=== PATIENT | female | born 1935 | race Caucasian/White ===

== ENCOUNTER → 2016-10-30 | Outpatient (CLI) | payer MEDICARE ==
[~2016-10-30] MED LIST: ACTO45TA OR; ASPI1TAB5 PO; AUGM500T34 PO; BISA5TA OR; CALC600T7 PO; CARV6.25 PO; ENAL20TA OR; FERR325T OR; FLEX10TA2 PO; FLEXER; FLEXERIL PO; FURO20TA2 PO; GLIP5TAB2 PO; GLUC1000 OR; LEVOXYL25 MCG OR; MILKSUS OR; MIRALEX OR; NORV5TAB OR; PAIN325T OR; PRAV40TA PO; SIMV40TA2 OR; TIZA4CAP PO; TRAM50TA2 OR; VIT D 4000; VITA400C OR; VITA500C24 PO; VITAMIN; [UNRECOGNIZED DRUG - OTHER]; [UNRECOGNIZED DRUG - OTHER] OR; [UNRECOGNIZED DRUG - OTHER] PO; fishoil; furosemide PO; multivit PO
--- NOTE | 2016-10-30 18:07 | REP ---
CT PELVIS WITHOUT CONTRAST: REASON FOR EXAM: Left hip pain, possible stress fracture. Bony pelvic CT was obtained without intravenous contrast was windowed in both bone and soft-tissue settings. COMPARISON: Comparison CT of 05/23/2010, a soft-tissue abdominal and pelvic CT was windowed using bone window settings and views for comparison. Since the last examination the patient has undergone a complete right hip prosthetic device placement. The femoral and acetabular component of the prosthesis are within normal limits. There is no acute fracture or dislocation. There is no CT evidence of abnormal periprosthetic lucency. Chronic degenerative changes are seen involving the left hip with asymmetric hip joint space narrowing, marginal osteophytosis, and subchondral cyst formation particularly affecting the acetabulum. Chronic changes are seen involving the pubic symphysis and bilateral sacroiliac joint degenerative changes are present. Discogenic degenerative changes and degenerative changes involving the facet joints of the lumbar spine are noted. There is no evidence of an acute fracture or dislocation. Soft tissue setting throughout the examination shows no evidence of a mass. There was no evidence of free fluid or free air in the pelvis. IMPRESSION: Chronic changes as described above. There is no evidence of acute disease. Signed by Matt Kumar DO 10/31/2016 12:00 P
== END ==
LOC: M RAD 15:38
PROVIDERS: ATTEND Orthopaedic Surgery
DX: M16.12 Unilateral primary osteoarthritis, left hip (principal)

== ENCOUNTER → 2018-07-30 | Outpatient (CLI) | payer MEDICARE ==
[2018-07-30 12:20] LABS: HEMATOCRIT 38.2 % (36.0-47.0); HEMOGLOBIN 12.9 g/dl (12.0-15.5); MEAN CORPUSCULAR HEMOGLOBIN 31.2 pg (27.0-33.0); MEAN CORPUSCULAR HGB CONC 33.8 g/dl (32.0-36.5); MEAN CORPUSCULAR VOLUME 92.5 fl (80.0-96.0); PLATELET COUNT, AUTOMATED 223 10^3/uL (150-450); RED BLOOD COUNT 4.13 10^6/uL (4.00-5.40); RED CELL DISTRIBUTION WIDTH 12.1 % (11.5-14.5); WHITE BLOOD COUNT 8.2 10^3/uL (4.0-10.0)
[2018-07-30 12:29] LABS: INR 0.99; PROTHROMBIN TIME 13.2 SECONDS (12.1-14.4)
[2018-07-30 12:49] LABS: ERYTHROCYTE SEDIMENTATION RATE 63 mm/hr (0-30)
[2018-07-30 12:54] LABS: ALBUMIN 3.2 GM/DL (3.2-5.2); ALBUMIN/GLOBULIN RATIO 0.82 (1.00-1.93); ALKALINE PHOSPHATASE 105 U/L (45-117); ALT/SGPT 29 U/L (12-78); ANION GAP 9 MEQ/L (8-16); AST/SGOT 27 U/L (7-37); BILIRUBIN,TOTAL 0.5 MG/DL (0.2-1.0); BLOOD UREA NITROGEN 21 MG/DL (7-18); CALCIUM LEVEL 9.4 MG/DL (8.8-10.2); CARBON DIOXIDE LEVEL 27 MEQ/L (21-32); CHLORIDE LEVEL 101 MEQ/L (98-107); CREATININE FOR GFR 1.49 MG/DL (0.55-1.30); GLOMERULAR FILTRATION RATE 35.8 (>32); GLUCOSE, FASTING 132 MG/DL (70-100); POTASSIUM SERUM 4.6 MEQ/L (3.5-5.1); SODIUM LEVEL 137 MEQ/L (136-145); TOTAL PROTEIN 7.1 GM/DL (6.4-8.2)
== END ==
LOC: M LAB 11:06
DX: Z01.818 Encounter for other preprocedural examination (principal); M16.12 Unilateral primary osteoarthritis, left hip; Z88.5 Allergy status to narcotic agent; Z88.0 Allergy status to penicillin; I45.10 Unspecified right bundle-branch block; R94.31 Abnormal electrocardiogram [ECG] [EKG]
CPT/HCPCS: 71046

== ENCOUNTER 2018-08-21 09:40 | Inpatient (IN) | payer MEDICARE ==
[2018-08-21 10:39] LABS: GLUCOSE, FASTING 161 MG/DL (70-100)
[2018-08-21] MEDS: ACETAMINOPHEN 500 MG TAB PO ×2 (10:50→22:57)
[2018-08-21] MEDS: LR 1,000 ML IV ×3 (10:50→16:30)
[2018-08-21] MEDS ORDERED: MIDAZOLAM INJ 2 MG/2 ML VIAL (J2250) As Ordered (13:00)
[2018-08-21] MEDS ORDERED: fentaNYL 100 MCG/2 ML INJECTION (J3010) As Ordered (13:00)
[2018-08-21] MEDS: VANCOMYCIN HCL 1,000 MG, VIAL MATE ADAPTER 1 EACH in D5W 250 ML IV (13:40)
[2018-08-21] MEDS: CLINDAMYCIN INJ 900MG/6ML VIAL As Ordered (14:33)
[2018-08-21] MEDS ORDERED: PROPOFOL 200 MG/20 ML VIAL As Ordered ×3 (15:16→15:17)
[2018-08-21] MEDS ORDERED: LIDOCAINE 2% INJ 100 MG/5 ML SDV (FOR ANES.) As Ordered (15:16)
[2018-08-21] MEDS: EPINEPHrine INJ 1 MG/ML 1ML AMP As Ordered (15:34)
[2018-08-21] MEDS ORDERED: PHENYLephrine HCL 500 MCG/5 ML (100MCG/ML) SYRINGE (J2370) As Ordered (15:42)
[2018-08-21] MEDS ORDERED: ePHEDrine SULFATE 25 MG/5 ML(5MG/ML) SYRINGE As Ordered (15:42)
[2018-08-21] MEDS ORDERED: ONDANSETRON 4MG/2ML VIAL (J2405) As Ordered (16:19)
[2018-08-21] MEDS ORDERED: MORPHINE 1MG/ML IN 0.9% NACL 100ML IV BAG As Ordered (16:21)
[2018-08-21] MEDS: MORPHINE 1MG/ML IN 0.9% NACL 100ML IV BAG IV (16:30)
[2018-08-21] MEDS ORDERED: MORPHINE 10 MG/ML 1ML VIAL (J2270) IV (16:30)
[2018-08-21] MEDS ORDERED: NALOXONE INJ 0.4 MG/1 ML VIAL (J2310) IV (16:30)
[2018-08-21] MEDS ORDERED: EPIDURAL/PCA KEYS XX (16:30)
[2018-08-21] MEDS ORDERED: diphenhydrAMINE INJ 50MG/ML VIAL (J1200) IV (16:30)
[2018-08-21] MEDS ORDERED: ACETAMINOPHEN TAB 650MG DOSE (2X325MG) PO (16:30)
[2018-08-21] MEDS ORDERED: NALBUPHINE HCL 10 MG/ML AMP (J2300) IV (16:30)
[2018-08-21] MEDS ORDERED: fentaNYL 100 MCG/2 ML INJECTION (J3010) IV (16:30)
[2018-08-21] MEDS ORDERED: ONDANSETRON 4MG/2ML VIAL (J2405) IV ×2 (16:30)
[2018-08-21] MEDS ORDERED: FLEET ENEMA PR (16:30)
[2018-08-21 17:44] LABS: HEMOGLOBIN 10.7 g/dl (12.0-15.5); MEAN CORPUSCULAR HEMOGLOBIN 31.2 pg (27.0-33.0); MEAN CORPUSCULAR HGB CONC 32.4 g/dl (32.0-36.5); MEAN CORPUSCULAR VOLUME 96.2 fl (80.0-96.0); PLATELET COUNT, AUTOMATED 155 10^3/uL (150-450); RED BLOOD COUNT 3.43 10^6/uL (4.00-5.40); RED CELL DISTRIBUTION WIDTH 12.2 % (11.5-14.5); WHITE BLOOD COUNT 7.7 10^3/uL (4.0-10.0)
[2018-08-21 18:06] LABS: ANION GAP 6 MEQ/L (8-16); BLOOD UREA NITROGEN 26 MG/DL (7-18); CALCIUM LEVEL 8.3 MG/DL (8.8-10.2); CARBON DIOXIDE LEVEL 28 MEQ/L (21-32); CHLORIDE LEVEL 106 MEQ/L (98-107); CREATININE FOR GFR 1.29 MG/DL (0.55-1.30); GLOMERULAR FILTRATION RATE 42.2 (>32); GLUCOSE, FASTING 110 MG/DL (70-100); POTASSIUM SERUM 4.2 MEQ/L (3.5-5.1); SODIUM LEVEL 140 MEQ/L (136-145)
[2018-08-21] MEDS ORDERED: traMADol 50 MG TAB PO (21:00)
[2018-08-21] MEDS: ONDANSETRON 4MG/2ML VIAL (J2405) IV (21:20)
[2018-08-21] MEDS: CARVedilol 12.5 MG TAB PO (23:21)
[2018-08-21] MEDS: OMEGA-3 1000MG CAPSULE PO (23:21)
[2018-08-22] MEDS: VANCOMYCIN HCL 1,000 MG, VIAL MATE ADAPTER 1 EACH in D5W 250 ML IV ×2 (02:27→14:07)
[2018-08-22] MEDS: ACETAMINOPHEN 500 MG TAB PO ×3 (05:48→21:39)
[2018-08-22 05:49] LABS: HEMATOCRIT 29.6 % (36.0-47.0); HEMOGLOBIN 9.4 g/dl (12.0-15.5); MEAN CORPUSCULAR HEMOGLOBIN 30.9 pg (27.0-33.0); MEAN CORPUSCULAR HGB CONC 31.8 g/dl (32.0-36.5); MEAN CORPUSCULAR VOLUME 97.4 fl (80.0-96.0); PLATELET COUNT, AUTOMATED 161 10^3/uL (150-450); RED BLOOD COUNT 3.04 10^6/uL (4.00-5.40); RED CELL DISTRIBUTION WIDTH 12.4 % (11.5-14.5); WHITE BLOOD COUNT 7.3 10^3/uL (4.0-10.0)
[2018-08-22] MEDS: traMADol 50 MG TAB PO (05:49)
[2018-08-22] MEDS: LEVOTHYROXINE 75MCG TABLET (0.075MG) PO (05:49)
[2018-08-22 06:19] LABS: BEDSIDE GLUCOSE 227 MG/DL (83-110)
[2018-08-22 06:29] LABS: ANION GAP 5 MEQ/L (8-16); BLOOD UREA NITROGEN 30 MG/DL (7-18); CARBON DIOXIDE LEVEL 29 MEQ/L (21-32); CHLORIDE LEVEL 102 MEQ/L (98-107); GLUCOSE, FASTING 231 MG/DL (70-100); POTASSIUM SERUM 5.4 MEQ/L (3.5-5.1); SODIUM LEVEL 136 MEQ/L (136-145)
[2018-08-22] MEDS: MOM 30ML SUSPENSION UDC PO (08:30)
[2018-08-22] MEDS: PRAVASTATIN 20 MG TAB PO (08:30)
[2018-08-22] MEDS: SENOKOT S TAB PO ×2 (08:30→21:39)
[2018-08-22] MEDS: MIRALAX *UNIT DOSE* 17GM PACKET PO (08:30)
[2018-08-22] MEDS: CARVedilol 12.5 MG TAB PO ×2 (08:31→21:40)
[2018-08-22] MEDS: NS 1,000 ML IV ×2 (08:39→20:13)
[2018-08-22] MEDS: OMEGA-3 1000MG CAPSULE PO ×2 (08:43→21:00)
[2018-08-22] MEDS: FERROUS SULFATE 325MG TAB PO (08:43)
[2018-08-22] MEDS: ASCORBIC ACID 500 MG TAB PO (08:43)
[2018-08-22] MEDS: VITAMIN D 1,000 INTERNATIONAL UNITS TABLET PO (08:43)
[2018-08-22] MEDS ORDERED: RIVAROXABAN 10 MG TAB (XARELTO) PO (09:00)
[2018-08-22] MEDS ORDERED: FUROSEMIDE 40 MG TAB PO (09:00)
[2018-08-22] MEDS ORDERED: DEXTROSE 50% 50 ML SYRINGE IV (09:15)
[2018-08-22] MEDS ORDERED: GLUCAGON FOR INJ 1 MG VIAL (J1610) SC (09:15)
[2018-08-22] MEDS ORDERED: GLUCOSE 4 GM CHEW TABLET PO (09:15)
[2018-08-22 11:39] LABS: BEDSIDE GLUCOSE 306 MG/DL (83-110)
[2018-08-22] MEDS: HumaLOG INSULIN (NovoLOG) PER UNIT SC ×3 (13:06→21:41)
[2018-08-22 16:48] LABS: BEDSIDE GLUCOSE 316 MG/DL (83-110)
[2018-08-22 20:08] LABS: BEDSIDE GLUCOSE 275 MG/DL (83-110)
[2018-08-22] MEDS: ONDANSETRON 4MG/2ML VIAL (J2405) IV (20:13)
[2018-08-23] MEDS: traMADol 50 MG TAB PO ×2 (01:06→07:43)
[2018-08-23] MEDS: ONDANSETRON 4MG/2ML VIAL (J2405) IV (01:06)
[2018-08-23 06:00] LABS: HEMATOCRIT 24.3 % (36.0-47.0); HEMOGLOBIN 7.9 g/dl (12.0-15.5); MEAN CORPUSCULAR HEMOGLOBIN 31.1 pg (27.0-33.0); MEAN CORPUSCULAR HGB CONC 32.5 g/dl (32.0-36.5); MEAN CORPUSCULAR VOLUME 95.7 fl (80.0-96.0); PLATELET COUNT, AUTOMATED 124 10^3/uL (150-450); RED BLOOD COUNT 2.54 10^6/uL (4.00-5.40); RED CELL DISTRIBUTION WIDTH 12.5 % (11.5-14.5); WHITE BLOOD COUNT 7.4 10^3/uL (4.0-10.0)
[2018-08-23] MEDS: LEVOTHYROXINE 75MCG TABLET (0.075MG) PO (06:05)
[2018-08-23] MEDS: ACETAMINOPHEN 500 MG TAB PO ×3 (06:05→21:50)
[2018-08-23 06:24] LABS: ANION GAP 7 MEQ/L (8-16); BLOOD UREA NITROGEN 44 MG/DL (7-18); CALCIUM LEVEL 7.2 MG/DL (8.8-10.2); CARBON DIOXIDE LEVEL 26 MEQ/L (21-32); CHLORIDE LEVEL 99 MEQ/L (98-107); CREATININE FOR GFR 2.61 MG/DL (0.55-1.30); GLOMERULAR FILTRATION RATE 18.7 (>32); GLUCOSE, FASTING 353 MG/DL (70-100); POTASSIUM SERUM 4.8 MEQ/L (3.5-5.1); SODIUM LEVEL 132 MEQ/L (136-145)
[2018-08-23 08:08] LABS: NT-PRO BNP 807 PG/ML (<450)
[2018-08-23 08:49] LABS: BEDSIDE GLUCOSE 351 MG/DL (83-110)
[2018-08-23] MEDS: HumaLOG INSULIN (NovoLOG) PER UNIT SC ×4 (08:53→20:33)
[2018-08-23] MEDS: MOM 30ML SUSPENSION UDC PO (08:53)
[2018-08-23] MEDS: NS 1,000 ML IV (08:53)
[2018-08-23] MEDS: MIRALAX *UNIT DOSE* 17GM PACKET PO (08:53)
[2018-08-23] MEDS: ASCORBIC ACID 500 MG TAB PO (08:54)
[2018-08-23] MEDS: PRAVASTATIN 20 MG TAB PO (08:54)
[2018-08-23] MEDS: FERROUS SULFATE 325MG TAB PO (08:54)
[2018-08-23] MEDS: CARVedilol 12.5 MG TAB PO ×2 (08:54→20:48)
[2018-08-23] MEDS: OMEGA-3 1000MG CAPSULE PO ×2 (08:54→20:48)
[2018-08-23] MEDS: VITAMIN D 1,000 INTERNATIONAL UNITS TABLET PO (08:54)
[2018-08-23] MEDS: SENOKOT S TAB PO ×2 (08:54→20:48)
[2018-08-23 11:40] LABS: BEDSIDE GLUCOSE 387 MG/DL (83-110)
[2018-08-23 14:30] LABS: IMMEDIATE SPIN CROSSMATCH 1 2
[2018-08-23 14:38] LABS: OSMOLALITY URINE 592 MOSM/KG (500-800)
[2018-08-23 14:38] LABS: APPEARANCE, URINE CLEAR (CLEAR); BACTERIA, URINE AUTO NEGATIVE (NEGATIVE); BILIRUBIN, URINE AUTO NEGATIVE (NEGATIVE); BLOOD, URINE BLOOD NEGATIVE (NEGATIVE); COLOR, URINE YELLOW (YELLOW); GLUCOSE, URINE (UA) AUTO 2+ mg/dL (NEGATIVE); KETONE, URINE AUTO NEGATIVE (NEGATIVE); LEUKOCYTE ESTERASE, URINE AUTO 2+ (NEGATIVE); NITRITE, URINE AUTO NEGATIVE (NEGATIVE); PROTEIN, URINE AUTO NEGATIVE (NEGATIVE); RBC, URINE AUTO 3 /HPF (0-3); SPECIFIC GRAVITY URINE AUTO 1.025 (1.002-1.035); SQUAMOUS EPITHELIAL CELL UR AU 0 /HPF (0-6); UROBILINOGEN, URINE AUTO 0.2 mg/dL (0.0-2.0); WBC, URINE AUTO 16 /HPF (0-3)
[2018-08-23 14:53] LABS: SODIUM,RANDOM URINE < 10 MEQ/L
[2018-08-23 16:46] LABS: BEDSIDE GLUCOSE 349 MG/DL (83-110)
[2018-08-23 19:27] LABS: HEMATOCRIT 31.6 % (36.0-47.0); MEAN CORPUSCULAR HEMOGLOBIN 31.1 pg (27.0-33.0); MEAN CORPUSCULAR HGB CONC 33.2 g/dl (32.0-36.5); MEAN CORPUSCULAR VOLUME 93.5 fl (80.0-96.0); PLATELET COUNT, AUTOMATED 128 10^3/uL (150-450); RED BLOOD COUNT 3.38 10^6/uL (4.00-5.40); RED CELL DISTRIBUTION WIDTH 13.9 % (11.5-14.5); WHITE BLOOD COUNT 10.3 10^3/uL (4.0-10.0)
[2018-08-23 19:28] LABS: HEMOGLOBIN 10.5 g/dl (12.0-15.5)
[2018-08-23 19:58] LABS: BEDSIDE GLUCOSE 342 MG/DL (83-110)
[2018-08-23] MEDS: LEVEMIR (INSULIN DETEMIR) 1 UNITS/0.01ML SC (20:33)
[2018-08-23] MEDS ORDERED: ACETAMINOPHEN 500 MG TAB As Ordered (21:48)
[2018-08-24] MEDS: LEVOTHYROXINE 75MCG TABLET (0.075MG) PO (05:04)
[2018-08-24] MEDS: ACETAMINOPHEN 500 MG TAB PO ×3 (05:05→20:56)
[2018-08-24 06:01] LABS: HEMATOCRIT 30.6 % (36.0-47.0); MEAN CORPUSCULAR HEMOGLOBIN 30.7 pg (27.0-33.0); MEAN CORPUSCULAR HGB CONC 32.7 g/dl (32.0-36.5); MEAN CORPUSCULAR VOLUME 93.9 fl (80.0-96.0); PLATELET COUNT, AUTOMATED 130 10^3/uL (150-450); RED BLOOD COUNT 3.26 10^6/uL (4.00-5.40); RED CELL DISTRIBUTION WIDTH 13.9 % (11.5-14.5); WHITE BLOOD COUNT 9.1 10^3/uL (4.0-10.0)
[2018-08-24 06:41] LABS: ANION GAP 7 MEQ/L (8-16); BLOOD UREA NITROGEN 46 MG/DL (7-18); CALCIUM LEVEL 7.7 MG/DL (8.8-10.2); CARBON DIOXIDE LEVEL 24 MEQ/L (21-32); CHLORIDE LEVEL 100 MEQ/L (98-107); CREATININE FOR GFR 2.19 MG/DL (0.55-1.30); GLOMERULAR FILTRATION RATE 22.9 (>32); GLUCOSE, FASTING 232 MG/DL (70-100); POTASSIUM SERUM 4.6 MEQ/L (3.5-5.1); SODIUM LEVEL 131 MEQ/L (136-145)
[2018-08-24] MEDS: MOM 30ML SUSPENSION UDC PO (08:23)
[2018-08-24] MEDS: PRAVASTATIN 20 MG TAB PO (08:23)
[2018-08-24] MEDS: MIRALAX *UNIT DOSE* 17GM PACKET PO (08:23)
[2018-08-24] MEDS: SENOKOT S TAB PO ×2 (08:24→20:55)
[2018-08-24] MEDS: ASCORBIC ACID 500 MG TAB PO (08:24)
[2018-08-24] MEDS: OMEGA-3 1000MG CAPSULE PO ×2 (08:24→20:55)
[2018-08-24] MEDS: CARVedilol 12.5 MG TAB PO ×2 (08:26→20:56)
[2018-08-24] MEDS: FERROUS SULFATE 325MG TAB PO (08:26)
[2018-08-24] MEDS: HumaLOG INSULIN (NovoLOG) PER UNIT SC ×4 (08:27→20:56)
[2018-08-24] MEDS: VITAMIN D 1,000 INTERNATIONAL UNITS TABLET PO (08:27)
[2018-08-24] MEDS: NS 1,000 ML IV ×2 (08:27→17:59)
[2018-08-24] MEDS: LEVEMIR (INSULIN DETEMIR) 1 UNITS/0.01ML SC (08:28)
[2018-08-24 11:32] LABS: BEDSIDE GLUCOSE 257 MG/DL (83-110)
[2018-08-24 12:34] LABS: ANION GAP 8 MEQ/L (8-16); BLOOD UREA NITROGEN 47 MG/DL (7-18); CALCIUM LEVEL 8.1 MG/DL (8.8-10.2); CARBON DIOXIDE LEVEL 25 MEQ/L (21-32); CHLORIDE LEVEL 100 MEQ/L (98-107); CREATININE FOR GFR 2.08 MG/DL (0.55-1.30); GLOMERULAR FILTRATION RATE 24.3 (>32); GLUCOSE, FASTING 248 MG/DL (70-100); POTASSIUM SERUM 4.7 MEQ/L (3.5-5.1); SODIUM LEVEL 133 MEQ/L (136-145)
[2018-08-24] MEDS: traMADol 50 MG TAB PO ×2 (13:26→19:27)
[2018-08-24 17:06] LABS: BEDSIDE GLUCOSE 133 MG/DL (83-110)
[2018-08-24 20:08] LABS: BEDSIDE GLUCOSE 180 MG/DL (83-110)
[2018-08-25] MEDS: ACETAMINOPHEN 500 MG TAB PO (05:06)
[2018-08-25] MEDS: traMADol 50 MG TAB PO (05:07)
[2018-08-25] MEDS: LEVOTHYROXINE 75MCG TABLET (0.075MG) PO (05:07)
[2018-08-25 06:13] LABS: BEDSIDE GLUCOSE 105 MG/DL (83-110)
[2018-08-25 08:07] LABS: HEMATOCRIT 29.4 % (36.0-47.0); HEMOGLOBIN 9.7 g/dl (12.0-15.5); MEAN CORPUSCULAR HEMOGLOBIN 31.5 pg (27.0-33.0); MEAN CORPUSCULAR VOLUME 95.5 fl (80.0-96.0); PLATELET COUNT, AUTOMATED 141 10^3/uL (150-450); RED BLOOD COUNT 3.08 10^6/uL (4.00-5.40); RED CELL DISTRIBUTION WIDTH 13.8 % (11.5-14.5)
[2018-08-25] MEDS: HumaLOG INSULIN (NovoLOG) PER UNIT SC ×2 (08:13→12:38)
[2018-08-25] MEDS: LEVEMIR (INSULIN DETEMIR) 1 UNITS/0.01ML SC (08:19)
[2018-08-25] MEDS: CARVedilol 12.5 MG TAB PO (08:19)
[2018-08-25] MEDS: MIRALAX *UNIT DOSE* 17GM PACKET PO (08:27)
[2018-08-25] MEDS: FERROUS SULFATE 325MG TAB PO (08:27)
[2018-08-25] MEDS: MOM 30ML SUSPENSION UDC PO (08:27)
[2018-08-25] MEDS: OMEGA-3 1000MG CAPSULE PO (08:27)
[2018-08-25] MEDS: ASCORBIC ACID 500 MG TAB PO (08:28)
[2018-08-25] MEDS: VITAMIN D 1,000 INTERNATIONAL UNITS TABLET PO (08:28)
[2018-08-25] MEDS: SENOKOT S TAB PO (08:28)
[2018-08-25] MEDS: PRAVASTATIN 20 MG TAB PO (08:28)
[2018-08-25 08:34] LABS: ANION GAP 6 MEQ/L (8-16); BLOOD UREA NITROGEN 38 MG/DL (7-18); CALCIUM LEVEL 7.5 MG/DL (8.8-10.2); CARBON DIOXIDE LEVEL 25 MEQ/L (21-32); CHLORIDE LEVEL 106 MEQ/L (98-107); CREATININE FOR GFR 1.59 MG/DL (0.55-1.30); GLOMERULAR FILTRATION RATE 33.2 (>32); GLUCOSE, FASTING 115 MG/DL (70-100); POTASSIUM SERUM 4.7 MEQ/L (3.5-5.1); SODIUM LEVEL 137 MEQ/L (136-145)
[2018-08-25 11:28] LABS: BEDSIDE GLUCOSE 225 MG/DL (83-110)
[2018-08-25] MEDS: HEPARIN SOD (PORCINE) 5000 UNITS/ML VIAL SQ (12:56)
== END 2018-08-25 13:30 | disposition home health service (06) | DRG 470 ==
LOC: M OR 09:40 → M MS5PR 17:35
PROVIDERS: Orthopaedic Surgery
PROC: 0SRB029 Replacement of Left Hip Joint with Metal on Polyethylene Synthetic Substitute, Cemented, Open Approach (ICD-10-PCS; principal; 2018-08-21 12:15)
PROC: 30233N1 Transfusion of Nonautologous Red Blood Cells into Peripheral Vein, Percutaneous Approach (ICD-10-PCS; 2018-08-21 13:39)
DX: M16.12 Unilateral primary osteoarthritis, left hip (principal); N17.9 Acute kidney failure, unspecified; N25.81 Secondary hyperparathyroidism of renal origin; N18.3 Chronic kidney disease, stage 3 (moderate); Z88.0 Allergy status to penicillin; Z88.5 Allergy status to narcotic agent; Z79.899 Other long term (current) drug therapy; E11.9 Type 2 diabetes mellitus without complications; I12.9 Hypertensive chronic kidney disease with stage 1 through stage 4 chronic kidney disease, or unspecified chronic kidney disease; E03.9 Hypothyroidism, unspecified; E78.00 Pure hypercholesterolemia, unspecified; Z85.828 Personal history of other malignant neoplasm of skin

== ENCOUNTER 2018-08-28 12:20 | Observation (INO) | payer MEDICARE ==
[~2018-08-28] VITALS: Ht 154.9 cm; Wt 100.0 kg
[~2018-08-28 12:20] MED LIST changes: +CALCTAB74 PO; +CARV25TA PO; +FERR1TAB8 PO; +FISH7.5C PO; +FLAX10002 PO; +FURO40TA2 PO; +MULT1TAB18 PO; +PRAV80TA2 PO; +SYNT75TA PO; +TRAM50TA2 PO; +TRES1INJ SC; +TRUL0.5I SC; +VITA2000 PO; +VITA400C67 PO; +VITA500T PO; +XARE10TA PO; +ZOLP5TAB PO
[2018-08-28 14:50] LABS: BASO % 0.1 % (0.0-1.0); EOS # 0.1 10^3/uL (0.0-0.50); EOS % 1.2 % (0.0-3.0); HEMATOCRIT 30.9 % (36.0-47.0); HEMOGLOBIN 10.1 g/dl (12.0-15.5); LYMPH # 1.1 10^3/uL (1.5-4.5); LYMPH % 12.6 % (24.0-44.0); MEAN CORPUSCULAR HEMOGLOBIN 30.6 pg (27.0-33.0); MEAN CORPUSCULAR HGB CONC 32.7 g/dl (32.0-36.5); MEAN CORPUSCULAR VOLUME 93.6 fl (80.0-96.0); MONO # 0.5 10^3/uL (0.0-0.8); MONO % 5.5 % (0.0-5.0); NEUTROPHILS # 6.9 10^3/uL (1.8-7.7); NEUTROPHILS % 80.1 % (36.0-66.0); PLATELET COUNT, AUTOMATED 228 10^3/uL (150-450); WHITE BLOOD COUNT 8.6 10^3/uL (4.0-10.0)
[2018-08-28 15:16] LABS: BLOOD UREA NITROGEN 20 MG/DL (7-18); CALCIUM LEVEL 8.9 MG/DL (8.8-10.2); CARBON DIOXIDE LEVEL 26 MEQ/L (21-32); CHLORIDE LEVEL 102 MEQ/L (98-107); CK-MB VALUE MASS < 1.0 NG/ML (<3.6); CPK CREATINE PHOSPHOKINASE 59 U/L (26-192); GLOMERULAR FILTRATION RATE 41.9 (>32); GLUCOSE, FASTING 238 MG/DL (70-100); MB/CK RELATIVE INDEX 1.69 (< OR =4); NT-PRO BNP 5442 PG/ML (<450); POTASSIUM SERUM 4.1 MEQ/L (3.5-5.1); SODIUM LEVEL 136 MEQ/L (136-145); TROPONIN I 0.02 NG/ML (< 0.10)
[2018-08-28] MEDS ORDERED: FUROSEMIDE 40 MG/4 ML VIAL (J1940) IV ONE (15:30)
[2018-08-28] MEDS ORDERED: ISOVUE-370 76% 100ML VIAL (Q9967) As Ordered ONE (15:41)
--- NOTE | 2018-08-28 16:28 | REP ---
CT pulmonary angiogram: With IV contrast. History: Orthopnea, rule out pulmonary embolism. Comparison studies: Comparison CT study of the chest is from August 17, 2006. Contrast dose: 75 cc's of Isovue [address] technique: Helical scanning is acquired and overlapping 1.5 mm and contiguous 3 mm axial images are reformatted. In addition, maximum intensity projection and multiplanar re-formation images are generated in sagittal and coronal imaging projections. CT pulmonary angiographic findings: There is good opacification of the pulmonary arterial tree. There is no CT evidence of pulmonary embolus. Axial and maximum intensity projection images show no vessel cutoff or filling defect. The thoracic aorta enhances homogeneously and it is normal in course and caliber. No evidence of dissection or aneurysm. There is a small amount of pleural fluid bilaterally. No pericardial effusion is seen. No hilar adenopathy is seen. There are three or four pretracheal lymph nodes, the largest of which measures 12 x 15 mm. No definite adenopathy is seen. There is a small sliding-type hiatal hernia. The visualized upper abdominal structures are otherwise unremarkable. Lung window settings show no evidence of infiltrate, mass, or significant pulmonary nodule. No bony destructive lesion is appreciated. Impression: Very small amounts of bilateral pleural fluid. No CT evidence of pulmonary embolism. Small sliding-type hiatal hernia. Otherwise negative. Electronically Signed by Ismael Ovalle MD 08/28/2018 05:06 P
[2018-08-28] MEDS ORDERED: XARE10TA PO (18:03)
[2018-08-28] MEDS ORDERED: tiZANidine 4 MG TAB PO PRN (19:00)
[2018-08-28] MEDS ORDERED: zolPIDEM TARTRATE 5 MG TAB PO PRN (19:00)
[2018-08-28] MEDS ORDERED: GLUCOSE 4 GM CHEW TABLET PO PRN (20:30)
[2018-08-28] MEDS ORDERED: GLUCAGON FOR INJ 1 MG VIAL (J1610) SC PRN (20:30)
[2018-08-28] MEDS ORDERED: DEXTROSE 50% 50 ML SYRINGE IV PRN (20:30)
[2018-08-28] MEDS ORDERED: HumaLOG INSULIN (NovoLOG) PER UNIT SC SCH (21:00)
[2018-08-28] MEDS: CALCIUM/VITAMIN D 500 MG TAB PO SCH (21:00)
[2018-08-28] MEDS: OMEGA-3 1000MG CAPSULE PO SCH (21:00)
--- NOTE | 2018-08-28 21:27 | HPE ---
DATE OF ADMISSION: 08/28/2018 HISTORY OF PRESENT ILLNESS: 82-year-old female with past medical history of hypertension, diabetes, hyperlipidemia, history of osteoarthritis, status post left hip replacement last week by Dr. Jackson presents to the emergency room because of 4 days of continuous shortness of breath. She has had progressive paroxysmal nocturnal dyspnea over the last 3 to 4 days. She has no known history of congestive heart failure (CHF) though she is on Lasix, but she claims she does not know that she was on it, yet it has been reconciled that she has been on it. She had no associated chest pain with this. No palpitations. She has never had previous history of this and this all started after the surgery. She claims that during the surgery she was given a lot of IV fluids at which I cannot confirm through [facility]. The patient was given 40 of IV Lasix in the ER by the PA and she at this time feels much better. Resting comfortably and in no apparent distress. She will be admitted for new onset congestive heart failure (CHF). PAST MEDICAL HISTORY: Hypertension. Diabetes. Hyperlipidemia. History of hypothyroidism. Osteoarthritis. Status post left hip replacement last week at [facility]. ALLERGIES: Drug allergies to OXYCODONE, PENICILLIN. FAMILY HISTORY: Noncontributory. SOCIAL HISTORY: Patient denies tobacco, alcohol or illicit drugs. MEDICATIONS: That have been reconciled and she takes at home are as follows: - ascorbic acid 500 mg orally daily - calcium with vitamin D 1 tablet by mouth twice a day - Coreg 25 mg orally twice daily - colecalciferol 2000 units orally daily - ferrous sulfate 325 mg orally daily - flax seed oil 1 cap orally twice daily - Lasix 40 mg orally daily - Synthroid 75 mcg orally daily - multivitamin 1 tablet orally daily - pravastatin 80 mg orally daily - Xarelto 10 mg orally daily - tizanidine 4 mg orally at bedtime as needed - tramadol 50 mg orally three times a day as needed - Tresiba FlexTouch 26 units subcutaneous daily - Trulicity 1.5 mg subcutaneous every 7 days - Ambien 5 mg orally at bedtime REVIEW OF SYSTEMS: Negative for all 10 major systems except as mentioned in HPI. VITALS: Blood pressure is 130/61, heart rate is 71 and regular. Respiratory rate 18, temperature is 98.7. Oxygen saturation 95% on room air. Head: Atraumatic. Normocephalic. Neck: Supple. No jugular venous distention (JVD)/ Lungs: Clear to auscultation. S1, S2 audible. No murmurs appreciated. Abdomen: Soft, positive bowel sounds. No pedal edema. Skin: Intact. Neurological examination: Patient awake and alert times three. LABS: WBC 8.6, hemoglobin 10.1, hematocrit 30.9, platelets are 228,000. Sodium is 136, potassium 4.1, chloride 102, CO2 26, BUN 20, creatinine 1.3. Glucose is 238. Troponin is 0.02. BNP is 5442. CT angio shows very mild bilateral pleural effusion. No evidence of congestive changes. IMPRESSION: Acute CHF. PLAN: The patient is to be admitted to PCU. Will get a second troponin to rule out acute coronary artery syndrome. Will also send a TSH and have Dr. Ramirez see the patient in the morning. Will not order an echocardiogram because a prior echo was done by Dr. Dyson about three days prior to her surgery last week for preoperative clearance and will get those results from his office tomorrow morning. Will continue IV Lasix 40 daily and continue her care in the PCU.
[2018-08-28 21:37] VITALS: BP 152/70
[2018-08-28 22:03] VITALS: BP 152/70
[2018-08-28] MEDS: traMADol 50 MG TAB PO PRN (22:03)
[2018-08-28] MEDS: CARVedilol 12.5 MG TAB PO SCH (22:03)
[2018-08-28 23:40] LABS: THYROID STIMULATING HORMONE 1.61 uIU/ML (0.358-3.740); TROPONIN I 0.02 NG/ML (< 0.10)
[2018-08-29] VITALS: BP 120/51
[2018-08-29 04:00] VITALS: BP 157/89
--- NOTE | 2018-08-29 04:50 | ECGEPIP ---
Stationary ECG Study [facility] - ED Test Date: 2018-08-28 Pat Name: JAYJAY GALLEGOS Department: Room: - Gender: F Ms Sql Dba: shakira : 1935 Requested By: LAWANDA Salgado PA-C Order Number: [id number] Reading MD: Tyrone Verdugo Measurements Intervals [place] Rate: 78 P: 59 SC: 188 QRS: 44 QRSD: 134 T: 25 QT: 393 QTc: 448 Interpretive Statements SINUS RHYTHM RIGHT BUNDLE BRANCH BLOCK SIMILAR TO 07/30/18 Electronically Signed On 08-29-2018 4:50:21 EST by Tyrone Verdugo
[2018-08-29 05:56] LABS: BASO % 0.1 % (0.0-1.0); EOS # 0.2 10^3/uL (0.0-0.50); EOS % 2.7 % (0.0-3.0); HEMATOCRIT 28.4 % (36.0-47.0); HEMOGLOBIN 9.2 g/dl (12.0-15.5); LYMPH # 1.5 10^3/uL (1.5-4.5); LYMPH % 17.6 % (24.0-44.0); MEAN CORPUSCULAR HEMOGLOBIN 30.5 pg (27.0-33.0); MEAN CORPUSCULAR HGB CONC 32.4 g/dl (32.0-36.5); MONO # 0.5 10^3/uL (0.0-0.8); MONO % 6.2 % (0.0-5.0); NEUTROPHILS # 6.3 10^3/uL (1.8-7.7); NEUTROPHILS % 72.9 % (36.0-66.0); PLATELET COUNT, AUTOMATED 214 10^3/uL (150-450); RED BLOOD COUNT 3.02 10^6/uL (4.00-5.40); WHITE BLOOD COUNT 8.7 10^3/uL (4.0-10.0)
[2018-08-29] MEDS ORDERED: LEVOTHYROXINE 75MCG TABLET (0.075MG) PO SCH (06:00)
[2018-08-29 06:07] LABS: CALCIUM LEVEL 8.4 MG/DL (8.8-10.2); CREATININE FOR GFR 1.21 MG/DL (0.55-1.30); GLOMERULAR FILTRATION RATE 45.5 (>32); POTASSIUM SERUM 3.7 MEQ/L (3.5-5.1)
[2018-08-29 08:00] VITALS: BP 120/60
[2018-08-29] MEDS: VITAMIN D 1,000 INTERNATIONAL UNITS TABLET PO SCH ×2 (08:55→09:00)
[2018-08-29] MEDS: PRAVASTATIN 20 MG TAB PO SCH ×2 (08:55→09:00)
[2018-08-29] MEDS: CALCIUM/VITAMIN D 500 MG TAB PO SCH ×2 (08:55→09:00)
[2018-08-29] MEDS: VITAMIN E 400 INTERNATIONAL UNITS CAP PO SCH ×2 (08:55→09:00)
[2018-08-29] MEDS: CARVedilol 12.5 MG TAB PO SCH (08:56)
[2018-08-29] MEDS: RIVAROXABAN 10 MG TAB (XARELTO) PO SCH ×2 (08:56→09:00)
[2018-08-29] MEDS: traMADol 50 MG TAB PO PRN (08:56)
[2018-08-29] MEDS: FERROUS SULFATE 325MG TAB PO SCH ×2 (08:57→09:00)
[2018-08-29] MEDS: OMEGA-3 1000MG CAPSULE PO SCH ×2 (08:57→09:00)
[2018-08-29] MEDS: ASCORBIC ACID 500 MG TAB PO SCH ×2 (08:57→09:00)
[2018-08-29] MEDS ORDERED: FUROSEMIDE 40 MG TAB PO SCH (09:00)
[2018-08-29] MEDS ORDERED: FUROSEMIDE 40 MG/4 ML VIAL (J1940) IV SCH (09:00)
--- NOTE | 2018-08-29 09:28 | REP ---
Clinical: Shortness of breath . Comparison: 08/24/2018 . Findings: The mediastinum and cardiac silhouette are stable and within normal limits for portable technique. The lung garcia are clear without acute consolidation, effusion, or pneumothorax. Skeletal structures are intact. Impression: No acute cardiopulmonary process appreciated. Electronically Signed by Roberto Genao MD 08/28/2018 01:44 P
--- NOTE | 2018-08-29 10:54 | DSES ---
DATE OF ADMISSION: 08/28/2018 DATE OF DISCHARGE: 08/29/2018 PRINCIPLE DIAGNOSIS: Exacerbation of diastolic congestive heart failure. SECONDARY DIAGNOSES: Hypertension. Diabetes. Hyperlipidemia. Status post left hip replacement. PRIMARY CARE PROVIDER: Dr. Booker He. HISTORY: Mariajose Avitia was admitted with some mild congestive heart failure. She was given IV Lasix in the emergency room. Details are in the history and physical. HOSPITAL COURSE: She was diuresed with the initial dose of Lasix. Her shortness of breath resolved. She is back to her baseline. Her oxygen 2 saturation is maintained greater than 90% with ambulation. She is quite insistent on discharge today. PHYSICAL EXAMINATION: Today her blood pressure is 120/60, oxygen saturation 95% in room air. No drop with ambulation. No jugular venous distention (JVD). Lungs: Decreased breath sounds. Heart: Regular rhythm. Abdomen: Soft, nontender. No peripheral edema. LABS: CBC, BMP unremarkable today. PLAN: Patient was discharged home improved and stable condition. She is to followup with Dr. He next week (I tried to call their office to give hand-off of patient, but I think they are closed today). DISCHARGE MEDICATIONS: Her discharge medications are unchanged from when she was admitted. - vitamin C. - calcium with vitamin D - carvedilol 25 mg twice a day - ferrous sulfate 325 mg daily - vitamin D 2000 units daily - Flax seed - furosemide 40 mg daily - levothyroxine 75 mcg daily - pravastatin 80 mg daily - Xarelto 10 mg daily - tizanidine 4 mg nightly as needed - tramadol 50 mg three times a day as needed - Tresiba 26 units daily - Trulicity 1.5 mg subcutaneous weekly - Ambien 5 mg nightly for sleep The only changes I made is I stopped her fish oil and vitamin E, both of which are proved to show no benefit for cardiovascular conditions and both of which can enhance the anticoagulant effect of the Xarelto. Her activity is as tolerated per physical therapy from hip surgery. Diet is 2 grams sodium.
--- NOTE | 2018-08-30 16:22 | DSES ---
DATE OF ADMISSION: 08/28/2018 DATE OF DISCHARGE: 08/29/2018 ATTENDING PHYSICIAN: Dr. Jackson ADMISSION DIAGNOSIS: Left hip degenerative arthritis. OTHER DIAGNOSES: 1. Anemia. 2. History of basal cell carcinoma of the neck. 3. Osteopenia. 4. Incontinence. 5. Hypothyroidism. 6. Hypercholesterolemia. 7. Long-term methotrexate use. 8. Essential hypertension. 9. Proteinuria. 10. Degenerative joint disease. 11. Stage III chronic kidney disease. 12. Hypertension. 13. Hypertensive heart disease. 14. Hyperparathyroidism. 15. Type 2 diabetes. 16. Lower extremity edema. DISCHARGE DIAGNOSIS: Left hip degenerative arthritis status post left total hip arthroplasty. HISTORY: The patient is an 82-year-old female that had progressively worsening left hip pain and stiffness. She failed to improve with conservative measures. She continued to have symptoms with weightbearing activities and activities of daily living. The patient consented for an elective left total hip arthroplasty with Dr. Jackson for her continued symptoms. OPERATION PERFORMED: Left total hip arthroplasty. HOSPITAL COURSE: The patient underwent a left total hip arthroplasty under spinal anesthesia, which was uneventful. Her hospital course was without complication and she was up with physical therapy per their protocol weightbearing as tolerated on the left lower extremity. The patient was discharged on oral pain medications and will resume her preoperative medications and diet. She will use her thromboembolic deterrent stockings and take her anticoagulant as directed postoperatively to prevent deep venous thrombosis. The patient will followup in our office in 12-14 days for wound check and staple removal. She is encouraged to contact our office sooner if there is any increase in pain, drainage, redness, numbness or tingling in the extremity, fever greater than 101 degrees or any other concerns. Please see medical record for additional details.
== END 2018-08-29 12:50 | disposition home or self-care (01) ==
LOC: M ED 12:20 → M ED INP 20:23 → M PCU 21:37
PROVIDERS: ADMIT Internal Medicine; ATTEND Internal Medicine
DX: I50.31 Acute diastolic (congestive) heart failure (principal); I12.9 Hypertensive chronic kidney disease with stage 1 through stage 4 chronic kidney disease, or unspecified chronic kidney disease; E11.9 Type 2 diabetes mellitus without complications; E78.5 Hyperlipidemia, unspecified; Z79.899 Other long term (current) drug therapy; Z79.01 Long term (current) use of anticoagulants; Z96.642 Presence of left artificial hip joint; D64.9 Anemia, unspecified; N18.3 Chronic kidney disease, stage 3 (moderate); E03.9 Hypothyroidism, unspecified
CPT/HCPCS: 36415; 71045; 71275; 80048; 82550; 82553; 83880; 84443; 84484; 85025; 85379; 93005; 96374; 96376; 99284; G0378; J1940; Q9967

== ENCOUNTER 2019-07-03 13:42 | Day surgery (SDC) | payer MEDICARE ==
[~2019-07-03] VITALS: Ht 154.9 cm; Wt 100.2 kg
[~2019-07-03 13:42] MED LIST changes: +BALANCED SALT IRRIGATION SOLUTION 500ML BAG (FOR OR EYE MACHINE) As Ordered ONE; +CALCCAP4 PO; +DUOVISC (0.50ML VISCOAT/0.55ML PROVISC) OPHTH KIT As Ordered ONE; +LIDOCAINE 0.75%/EPINEPHRINE 0.025% IN BSS 0.8ML SYR INTRACAMERAL--OR ONLY As Ordered ONE; +MULTCAP PO; +OFLOXACIN 0.3 % (OCUFLOX) OPTH SOL 5ML OS ONE; +PHENYLEPHRINE 2.5% OPHTH SOL 2ML OS ONE; +POVIDONE-IODINE 5% OPHTH PREP SOL 30ML As Ordered ONE; +PROPARACAINE 0.5% OPHTH SOL 15ML OS ONE; +TROPICAMIDE 1% OPHTH SOLN 2ML OS ONE
[2019-07-03] MEDS ORDERED: fentaNYL 100 MCG/2 ML INJECTION (J3010) As Ordered ONE (14:49)
[2019-07-03] MEDS ORDERED: MIDAZOLAM INJ 2 MG/2 ML VIAL (J2250) As Ordered ONE (14:49)
[2019-07-03 15:30] VITALS: BP 135/63
--- NOTE | 2019-07-04 18:54 | RO ---
DATE OF PROCEDURE: 07/03/2019 PREOPERATIVE DIAGNOSIS: 1. Visually significant nuclear sclerotic cataract left eye. POSTOPERATIVE DIAGNOSIS: 1. Visually significant nuclear sclerotic cataract left eye. PROCEDURE: 1. Cataract extraction with use of phacoemulsification and placement of intraocular lens, AU00T0, 22.0 D, left eye. SURGEON: Ac Taylor DO UX DESIGN LEAD: None. ANESTHESIA: Local with monitored anesthesia care (MAC). COMPLICATIONS: None. POSTOPERATIVE CONDITION: Stable. INDICATIONS FOR SURGERY: 1. Blurred vision affecting patients activities of daily living. DESCRIPTION OF PROCEDURE: The patient was seen in the preoperative area and properly identified. The correct operative eye was identified and marked. The patient received topical anesthetic, antibiotics, and topical dilating drops. The patient was then transferred to the operating room. The correct side was re-identified, and a time-out was performed. The eye was prepped and draped in a sterile fashion. The eyelids were isolated with Tegaderm tape, and the lids were held open with an adjustable speculum. A 1.0 mm paracentesis incision was made. Intraocular preservative-free Shugarcaine was then injected into the anterior chamber. Viscoelastic was then injected into the anterior chamber through the paracentesis. Using a 2.4 mm sharp-tipped keratome, the anterior chamber was entered via a temporal clear cornea incision. A continuous curvilinear capsulorrhexis was created with Utrata forceps. Hydrodissection was performed with balanced salt solution (BSS) on a blunt cannula until the nucleus was able to rotate freely. The crystalline lens was phacoemulsified and aspirated. Irrigation/aspiration was used to remove the cortical material. Cohesive viscoelastic was placed into the capsular bag to deepen it. The implant was placed into the capsular bag and allowed to unfold. Placement was confirmed by visualizing the anterior capsulorrhexis. Irrigation/aspiration was used to remove the viscoelastic. The clear corneal incision was hydrated with BSS on a blunt cannula. The lens was well positioned. The incisions were then tested for leaks and found to be negative. The eye was then palpated for appropriate pressure and adjusted accordingly with BSS. The eyelid speculum was then carefully removed. A shield was placed over the eye. The patient tolerated the procedure well and was discharged to the recovery unit in a stable condition.
== END 2019-07-03 15:30 | disposition home or self-care (01) ==
LOC: M SDC 13:42
PROVIDERS: ATTEND Ophthalmology
DX: H25.12 Age-related nuclear cataract, left eye (principal); I10 Essential (primary) hypertension; E11.9 Type 2 diabetes mellitus without complications; E03.9 Hypothyroidism, unspecified; E78.5 Hyperlipidemia, unspecified; F41.9 Anxiety disorder, unspecified; F32.9 Major depressive disorder, single episode, unspecified; D64.9 Anemia, unspecified; Z79.899 Other long term (current) drug therapy; Z91.018 Allergy to other foods
CPT/HCPCS: 66984; J2250; J3010; V2632

== ENCOUNTER 2019-07-17 06:48 | Day surgery (SDC) | payer MEDICARE ==
[~2019-07-17] VITALS: Ht 154.9 cm; Wt 101.6 kg
[~2019-07-17 06:48] MED LIST changes: -OFLOXACIN 0.3 % (OCUFLOX) OPTH SOL 5ML OS ONE; -PHENYLEPHRINE 2.5% OPHTH SOL 2ML OS ONE; -PROPARACAINE 0.5% OPHTH SOL 15ML OS ONE; -TROPICAMIDE 1% OPHTH SOLN 2ML OS ONE
[2019-07-17] MEDS ORDERED: PHENYLEPHRINE 2.5% OPHTH SOL 2ML OD ONE (07:00)
[2019-07-17] MEDS ORDERED: PROPARACAINE 0.5% OPHTH SOL 15ML OD ONE (07:00)
[2019-07-17] MEDS ORDERED: OFLOXACIN 0.3 % (OCUFLOX) OPTH SOL 5ML OD ONE (07:00)
[2019-07-17] MEDS ORDERED: TROPICAMIDE 1% OPHTH SOLN 2ML OD ONE (07:00)
[2019-07-17] MEDS ORDERED: MIDAZOLAM INJ 2 MG/2 ML VIAL (J2250) As Ordered ONE (10:30)
[2019-07-17] MEDS ORDERED: fentaNYL 100 MCG/2 ML INJECTION (J3010) As Ordered ONE (10:31)
[2019-07-17 11:35] VITALS: BP 134/60
--- NOTE | 2019-07-18 10:07 | RO ---
DATE OF PROCEDURE: 07/17/2019 PREOPERATIVE DIAGNOSIS: 1. Visually significant nuclear sclerotic cataract right eye. POSTOPERATIVE DIAGNOSIS: 1. Visually significant nuclear sclerotic cataract right eye. PROCEDURE: 1. Cataract extraction with use of phacoemulsification and placement of intraocular lens, AU00T0, 21.5 D, right eye. SURGEON: Ac Taylor DO COMPOUNDING PHARMACY TECHNICIAN: None. ANESTHESIA: Local with monitored anesthesia care (MAC). COMPLICATIONS: None. POSTOPERATIVE CONDITION: Stable. INDICATIONS FOR SURGERY: 1. Blurred vision affecting patients activities of daily living. DESCRIPTION OF PROCEDURE: The patient was seen in the preoperative area and properly identified. The correct operative eye was identified and marked. The patient received topical anesthetic, antibiotics, and topical dilating drops. The patient was then transferred to the operating room. The correct side was re-identified, and a time-out was performed. The eye was prepped and draped in a sterile fashion. The eyelids were isolated with Tegaderm tape, and the lids were held open with an adjustable speculum. A 1.0 mm paracentesis incision was made. Intraocular preservative-free Shugarcaine was then injected into the anterior chamber. Viscoelastic was then injected into the anterior chamber through the paracentesis. Using a 2.4 mm sharp-tipped keratome, the anterior chamber was entered via a temporal clear cornea incision. A continuous curvilinear capsulorrhexis was created with Utrata forceps. Hydrodissection was performed with balanced salt solution (BSS) on a blunt cannula until the nucleus was able to rotate freely. The crystalline lens was phacoemulsified and aspirated. Irrigation/aspiration was used to remove the cortical material. Cohesive viscoelastic was placed into the capsular bag to deepen it. The implant was placed into the capsular bag and allowed to unfold. Placement was confirmed by visualizing the anterior capsulorrhexis. Irrigation/aspiration was used to remove the viscoelastic. The clear corneal incision was hydrated with BSS on a blunt cannula. The lens was well positioned. The incisions were then tested for leaks and found to be negative. The eye was then palpated for appropriate pressure and adjusted accordingly with BSS. The eyelid speculum was then carefully removed. A shield was placed over the eye. The patient tolerated the procedure well and was discharged to the recovery unit in a stable condition.
== END 2019-07-17 11:35 | disposition home or self-care (01) ==
LOC: M SDC 06:48
PROVIDERS: ATTEND Ophthalmology
DX: H25.11 Age-related nuclear cataract, right eye (principal); I13.0 Hypertensive heart and chronic kidney disease with heart failure and stage 1 through stage 4 chronic kidney disease, or unspecified chronic kidney disease; I50.9 Heart failure, unspecified; E78.00 Pure hypercholesterolemia, unspecified; R01.1 Cardiac murmur, unspecified; E10.9 Type 1 diabetes mellitus without complications; D64.9 Anemia, unspecified; E21.3 Hyperparathyroidism, unspecified; M85.80 Other specified disorders of bone density and structure, unspecified site; M19.90 Unspecified osteoarthritis, unspecified site; Z96.643 Presence of artificial hip joint, bilateral; M54.9 Dorsalgia, unspecified; F32.9 Major depressive disorder, single episode, unspecified; F41.9 Anxiety disorder, unspecified; R35.0 Frequency of micturition; N18.4 Chronic kidney disease, stage 4 (severe); Z88.0 Allergy status to penicillin; Z88.5 Allergy status to narcotic agent; Z91.018 Allergy to other foods; Z88.6 Allergy status to analgesic agent; Z79.899 Other long term (current) drug therapy; Z79.891 Long term (current) use of opiate analgesic
CPT/HCPCS: 66984; J2250; J3010; V2632

== ENCOUNTER → 2021-05-05 | Outpatient (REF) | payer OTHER ==
[~2021-05-05] MED LIST changes: -BALANCED SALT IRRIGATION SOLUTION 500ML BAG (FOR OR EYE MACHINE) As Ordered ONE; -DUOVISC (0.50ML VISCOAT/0.55ML PROVISC) OPHTH KIT As Ordered ONE; -LIDOCAINE 0.75%/EPINEPHRINE 0.025% IN BSS 0.8ML SYR INTRACAMERAL--OR ONLY As Ordered ONE; -POVIDONE-IODINE 5% OPHTH PREP SOL 30ML As Ordered ONE; +VITA-243 PO; -VITA500T PO
== END ==
LOC: M LAB REF 16:54
PROVIDERS: ATTEND Internal Medicine Nephrology
DX: E83.42 Hypomagnesemia (principal)

== ENCOUNTER 2021-12-23 23:01 | Inpatient (IN) | payer MEDICARE, OTHER ==
[~2021-12-23] VITALS: Ht 152.4 cm; Wt 85.0 kg
[~2021-12-23 23:01] MED LIST changes: -AMLO1TAB25 PO; -BENZ-18 PO; -DOXY-350 PO; -GUAI20TA PO; -MULT-90 PO; -NYST10006 TOP; -OMEG10002 PO; -PRED20TA PO; -VITA100093 PO; -VITA400C53 PO; -med rec comment
[2021-12-23] MEDS ORDERED: DOXY-350 PO (23:09)
[2021-12-23] MEDS ORDERED: PRED20TA PO (23:10)
[2021-12-24] VITALS (14 sets, daily range): BP systolic 110–150; BP diastolic 58–66; O2SAT 91–98
[2021-12-24 00:14] LABS: ABG pH (ARTERIAL) 7.324 UNITS (7.350-7.450)
[2021-12-24 00:15] LABS: BASO % 0.5 % (0.0-1.0); EOS % 0.5 % (0.0-3.0); HEMATOCRIT 39.2 % (36.0-47.0); HEMOGLOBIN 13.1 g/dl (12.0-15.5); LYMPH # 1.4 10^3/uL (1.5-5.0); LYMPH % 34.5 % (24.0-44.0); MEAN CORPUSCULAR HEMOGLOBIN 30.9 pg (27.0-33.0); MEAN CORPUSCULAR HGB CONC 33.4 g/dl (32.0-36.5); MEAN CORPUSCULAR VOLUME 92.5 fl (80.0-96.0); MONO # 0.3 10^3/uL (0.0-0.8); MONO % 6.6 % (2.0-8.0); NEUTROPHILS # 2.3 10^3/uL (1.5-8.5); NEUTROPHILS % 57.4 % (36.0-66.0); PLATELET COUNT, AUTOMATED 149 10^3/uL (150-450); RED BLOOD COUNT 4.24 10^6/uL (4.00-5.40); WHITE BLOOD COUNT 3.9 10^3/uL (4.0-10.0)
[2021-12-24 00:15] LABS: ABG BASE EXCESS -4.3 (-2.0-2.0); ABG HCO3 21.6 MEQ/L (22.0-26.0); ABG O2 SATURATION 96.9 % (95.0-99.0); ABG PARTIAL PRESSURE CO2 42.5 mmHg (35.0-45.0); ABG PARTIAL PRESSURE O2 92.9 mmHg (75.0-100.0); ABG TOTAL CO2 22.9 MEQ/L (23.0-31.0)
[2021-12-24 00:47] LABS: CK-MB VALUE MASS 7.2 NG/ML (<3.6); MB/CK RELATIVE INDEX 1.03 (< OR =4)
[2021-12-24 00:49] LABS: RSV AMPLIFICATION NEGATIVE (NEGATIVE)
[2021-12-24 01:07] LABS: ALBUMIN 2.7 GM/DL (3.2-5.2); ALT/SGPT 39 U/L (12-78); BILIRUBIN,DIRECT < 0.1 MG/DL (0.0-0.2); BILIRUBIN,TOTAL 0.5 MG/DL (0.2-1.0); BLOOD UREA NITROGEN 33 MG/DL (7-18); CALCIUM LEVEL 8.4 MG/DL (8.8-10.2); CARBON DIOXIDE LEVEL 25 MEQ/L (21-32); CHLORIDE LEVEL 104 MEQ/L (98-107); CREATININE FOR GFR 1.85 MG/DL (0.55-1.30); GLOMERULAR FILTRATION RATE 27.6 (>32); GLUCOSE, FASTING 142 MG/DL (70-100); NT-PRO BNP 1408 PG/ML (<450); POTASSIUM SERUM 4.5 MEQ/L (3.5-5.1); SODIUM LEVEL 134 MEQ/L (136-145); THYROXINE (T4) 8.8 UG/DL (4.5-12.0); TOTAL PROTEIN 6.6 GM/DL (6.4-8.2)
[2021-12-24] MEDS ORDERED: IPRATROPIUM 0.5MG/ALBUTEROL 2.5MG INH SOL UD 3ML (DUONEB) NEB ONE (01:40)
[2021-12-24] MEDS ORDERED: DEXTROSE 50% 50 ML SYRINGE IV PRN (02:55)
[2021-12-24] MEDS ORDERED: GLUCOSE 4GM CHEW TABLET PO PRN (02:55)
[2021-12-24] MEDS ORDERED: guaiFENesin 200 MG TAB PO PRN (02:55)
[2021-12-24] MEDS ORDERED: IPRATROPIUM 0.5MG/ALBUTEROL 2.5MG INH SOL UD 3ML (DUONEB) NEB PRN (02:55)
[2021-12-24] MEDS ORDERED: GLUCAGON INJ 1MG VIAL SC PRN (02:55)
[2021-12-24] MEDS ORDERED: VITA100093 PO (03:02)
[2021-12-24] MEDS ORDERED: VITA400C53 PO (03:02)
[2021-12-24] MEDS ORDERED: OMEG10002 PO (03:02)
[2021-12-24] MEDS ORDERED: MULT-90 PO (03:02)
[2021-12-24] MEDS ORDERED: med rec comment (03:04)
[2021-12-24] MEDS ORDERED: traMADol 50 MG TAB PO PRN (03:05)
[2021-12-24] MEDS ORDERED: HOME MED LIST COMPLETE! XX SCH (03:05)
[2021-12-24] MEDS ORDERED: tiZANidine 4 MG TAB PO PRN (03:05)
[2021-12-24] MEDS ORDERED: methylPREDNISolone 125MG 2ML VIAL IV ONE (04:00)
[2021-12-24] MEDS: LEVOTHYROXINE 75MCG TABLET (0.075MG) PO SCH (06:15)
[2021-12-24] MEDS: HEPARIN SOD (PORCINE) 5000UNITS/ML 1ML VIAL/SYRINGE SQ SCH ×3 (06:16→21:26)
[2021-12-24] MEDS: IPRATROPIUM 0.5MG/ALBUTEROL 2.5MG INH SOL UD 3ML (DUONEB) NEB SCH ×3 (07:33→20:00)
[2021-12-24 08:11] LABS: VENOUS BASE EXCESS -5.6 (-2.0-2.0); VENOUS O2 SATURATION 96.9 % (60.0-80.0); VENOUS PARTIAL PRESSURE O2 95.1 mmHg (30.0-50.0); VENOUS PH 7.286 UNITS (7.330-7.430); VENOUS STANDARD HCO3 19.9 MEQ/L; VENOUS TOTAL CO2 22.3 MEQ/L (24.0-28.0)
[2021-12-24 08:15] LABS: EOS % 0.2 % (0.0-3.0); HEMATOCRIT 35.7 % (36.0-47.0); HEMOGLOBIN 11.9 g/dl (12.0-15.5); LYMPH # 0.6 10^3/uL (1.5-5.0); LYMPH % 13.4 % (24.0-44.0); MEAN CORPUSCULAR HEMOGLOBIN 30.8 pg (27.0-33.0); MEAN CORPUSCULAR HGB CONC 33.3 g/dl (32.0-36.5); MEAN CORPUSCULAR VOLUME 92.5 fl (80.0-96.0); MONO # 0.2 10^3/uL (0.0-0.8); MONO % 3.8 % (2.0-8.0); NEUTROPHILS # 3.9 10^3/uL (1.5-8.5); NEUTROPHILS % 82.4 % (36.0-66.0); PLATELET COUNT, AUTOMATED 133 10^3/uL (150-450); RED BLOOD COUNT 3.86 10^6/uL (4.00-5.40); WHITE BLOOD COUNT 4.7 10^3/uL (4.0-10.0)
[2021-12-24 08:27] LABS: INR 0.97; PROTHROMBIN TIME 13.3 SECONDS (12.7-14.5)
[2021-12-24 08:28] LABS: PARTIAL THROMBOPLASTIN TIME 34.8 SECONDS (25.9-37.0)
[2021-12-24 08:39] LABS: CALCIUM LEVEL 8.7 MG/DL (8.8-10.2); CREATININE FOR GFR 1.72 MG/DL (0.55-1.30); MAGNESIUM LEVEL 1.7 MG/DL (1.8-2.4); POTASSIUM SERUM 3.8 MEQ/L (3.5-5.1)
[2021-12-24] MEDS: PRAVASTATIN 20 MG TAB PO SCH (09:16)
[2021-12-24] MEDS: FERROUS SULFATE 325MG TAB PO SCH (09:16)
[2021-12-24] MEDS: LEVEMIR (INSULIN DETEMIR) 1 UNITS/0.01ML SC SCH ×2 (09:16→21:27)
[2021-12-24] MEDS: ASCORBIC ACID 500 MG TAB PO SCH (09:17)
[2021-12-24] MEDS: CARVedilol 12.5 MG TAB PO SCH ×2 (09:17→21:00)
[2021-12-24] MEDS: VITAMIN D 1,000 INTERNATIONAL UNITS TABLET PO SCH (09:17)
[2021-12-24] MEDS: CALCIUM/VITAMIN D 500 MG TAB PO SCH (09:17)
[2021-12-24] MEDS: OMEGA-3 1000MG CAPSULE PO SCH ×2 (09:17→21:26)
[2021-12-24] MEDS: FUROSEMIDE 20 MG TAB PO SCH (09:17)
[2021-12-24] MEDS: LACTOBACILLUS ACIDOPHILUS CAP (BACID) PO SCH (09:17)
[2021-12-24] MEDS: HumaLOG INSULIN (NovoLOG) PER UNIT SC SCH ×4 (09:18→21:27)
[2021-12-24] MEDS: NYSTATIN 100,000 UNITS/GM TOPICAL PWD 15 GM TOP SCH ×2 (13:14→21:28)
[2021-12-24] MEDS: methylPREDNISolone 40MG 1ML VIAL IV SCH ×2 (13:15→20:00)
[2021-12-25] VITALS (10 sets, daily range): BP systolic 110–141; BP diastolic 58–68; O2SAT 91–98
[2021-12-25] MEDS: IPRATROPIUM 0.5MG/ALBUTEROL 2.5MG INH SOL UD 3ML (DUONEB) NEB SCH ×4 (01:23→20:00)
[2021-12-25] MEDS: LEVOTHYROXINE 75MCG TABLET (0.075MG) PO SCH (05:06)
[2021-12-25] MEDS: methylPREDNISolone 40MG 1ML VIAL IV SCH ×2 (05:07→15:18)
[2021-12-25] MEDS: HEPARIN SOD (PORCINE) 5000UNITS/ML 1ML VIAL/SYRINGE SQ SCH ×3 (05:07→21:20)
[2021-12-25 06:08] LABS: HEMATOCRIT 35.7 % (36.0-47.0); HEMOGLOBIN 11.9 g/dl (12.0-15.5); LYMPH # 1.2 10^3/uL (1.5-5.0); LYMPH % 18.7 % (24.0-44.0); MEAN CORPUSCULAR HGB CONC 33.3 g/dl (32.0-36.5); MONO # 0.2 10^3/uL (0.0-0.8); MONO % 3.4 % (2.0-8.0); NEUTROPHILS # 4.8 10^3/uL (1.5-8.5); NEUTROPHILS % 77.9 % (36.0-66.0); PLATELET COUNT, AUTOMATED 164 10^3/uL (150-450); RED BLOOD COUNT 3.84 10^6/uL (4.00-5.40); WHITE BLOOD COUNT 6.2 10^3/uL (4.0-10.0)
[2021-12-25 06:20] LABS: CALCIUM LEVEL 8.2 MG/DL (8.8-10.2); CREATININE FOR GFR 2.05 MG/DL (0.55-1.30); GLOMERULAR FILTRATION RATE 24.5 (>32); POTASSIUM SERUM 3.9 MEQ/L (3.5-5.1)
[2021-12-25] MEDS: CARVedilol 12.5 MG TAB PO SCH ×2 (08:06→21:19)
[2021-12-25] MEDS: FERROUS SULFATE 325MG TAB PO SCH (08:06)
[2021-12-25] MEDS: PRAVASTATIN 20 MG TAB PO SCH (08:06)
[2021-12-25] MEDS: LACTOBACILLUS ACIDOPHILUS CAP (BACID) PO SCH (08:06)
[2021-12-25] MEDS: ASCORBIC ACID 500 MG TAB PO SCH (08:07)
[2021-12-25] MEDS: LEVEMIR (INSULIN DETEMIR) 1 UNITS/0.01ML SC SCH ×2 (08:07→21:19)
[2021-12-25] MEDS: CALCIUM/VITAMIN D 500 MG TAB PO SCH (08:07)
[2021-12-25] MEDS: VITAMIN D 1,000 INTERNATIONAL UNITS TABLET PO SCH (08:07)
[2021-12-25] MEDS: OMEGA-3 1000MG CAPSULE PO SCH ×2 (08:07→21:18)
[2021-12-25] MEDS: HumaLOG INSULIN (NovoLOG) PER UNIT SC SCH ×4 (08:08→21:00)
[2021-12-25] MEDS: FUROSEMIDE 20 MG TAB PO SCH (08:08)
[2021-12-25] MEDS: NYSTATIN 100,000 UNITS/GM TOPICAL PWD 15 GM TOP SCH ×2 (09:52→21:20)
[2021-12-25 10:57] LABS: MAGNESIUM LEVEL 2.1 MG/DL (1.8-2.4)
[2021-12-25 14:08] LABS: APPEARANCE, URINE HAZY (CLEAR); BACTERIA, URINE AUTO 2+ (NEGATIVE); BILIRUBIN, URINE AUTO NEGATIVE (NEGATIVE); BLOOD, URINE BLOOD NEGATIVE (NEGATIVE); COLOR, URINE YELLOW (YELLOW); GLUCOSE, URINE (UA) AUTO NEGATIVE (NEGATIVE); KETONE, URINE AUTO NEGATIVE (NEGATIVE); LEUKOCYTE ESTERASE, URINE AUTO 3+ (NEGATIVE); NITRITE, URINE AUTO NEGATIVE (NEGATIVE); PROTEIN, URINE AUTO 1+ mg/dL (NEGATIVE); RBC, URINE AUTO 1 /HPF (0-3); SPECIFIC GRAVITY URINE AUTO 1.013 (1.002-1.035); SQUAMOUS EPITHELIAL CELL UR AU 0 /HPF (0-6); UROBILINOGEN, URINE AUTO 0.2 mg/dL (0.0-2.0); WBC, URINE AUTO 152 /HPF (0-3)
[2021-12-25] MEDS ORDERED: QUEtiapine FUMARATE 25 MG TAB PO SCH (21:00)
[2021-12-25] MEDS: BENZONATATE 100MG CAPSULE PO PRN (21:24)
[2021-12-26] VITALS (7 sets, daily range): BP systolic 148–182; BP diastolic 62–82; O2SAT 93–94
[2021-12-26] MEDS: IPRATROPIUM 0.5MG/ALBUTEROL 2.5MG INH SOL UD 3ML (DUONEB) NEB SCH ×4 (02:52→20:19)
[2021-12-26] MEDS: methylPREDNISolone 40MG 1ML VIAL IV SCH (05:02)
[2021-12-26] MEDS: LEVOTHYROXINE 75MCG TABLET (0.075MG) PO SCH (05:02)
[2021-12-26] MEDS: HEPARIN SOD (PORCINE) 5000UNITS/ML 1ML VIAL/SYRINGE SQ SCH ×3 (05:03→20:11)
[2021-12-26 06:23] LABS: BASO % 0.1 % (0.0-1.0); HEMATOCRIT 32.5 % (36.0-47.0); HEMOGLOBIN 10.8 g/dl (12.0-15.5); LYMPH % 12.5 % (24.0-44.0); MEAN CORPUSCULAR HEMOGLOBIN 30.8 pg (27.0-33.0); MEAN CORPUSCULAR HGB CONC 33.2 g/dl (32.0-36.5); MEAN CORPUSCULAR VOLUME 92.6 fl (80.0-96.0); MONO # 0.2 10^3/uL (0.0-0.8); MONO % 2.5 % (2.0-8.0); NEUTROPHILS % 84.5 % (36.0-66.0); PLATELET COUNT, AUTOMATED 158 10^3/uL (150-450); RED BLOOD COUNT 3.51 10^6/uL (4.00-5.40); WHITE BLOOD COUNT 8.3 10^3/uL (4.0-10.0)
[2021-12-26 06:38] LABS: CALCIUM LEVEL 8.6 MG/DL (8.8-10.2); CREATININE FOR GFR 1.59 MG/DL (0.55-1.30); GLOMERULAR FILTRATION RATE 32.8 (>32); POTASSIUM SERUM 4.2 MEQ/L (3.5-5.1)
[2021-12-26 08:03] LABS: MAGNESIUM LEVEL 2.1 MG/DL (1.8-2.4)
[2021-12-26] MEDS: CARVedilol 12.5 MG TAB PO SCH ×2 (09:00→20:10)
[2021-12-26] MEDS: HumaLOG INSULIN (NovoLOG) PER UNIT SC SCH ×4 (09:08→20:11)
[2021-12-26] MEDS: LEVEMIR (INSULIN DETEMIR) 1 UNITS/0.01ML SC SCH ×2 (09:09→20:11)
[2021-12-26] MEDS: PRAVASTATIN 20 MG TAB PO SCH (09:10)
[2021-12-26] MEDS: OMEGA-3 1000MG CAPSULE PO SCH ×2 (09:10→20:09)
[2021-12-26] MEDS: LACTOBACILLUS ACIDOPHILUS CAP (BACID) PO SCH (09:10)
[2021-12-26] MEDS: FERROUS SULFATE 325MG TAB PO SCH (09:10)
[2021-12-26] MEDS: VITAMIN D 1,000 INTERNATIONAL UNITS TABLET PO SCH (09:10)
[2021-12-26] MEDS: ASCORBIC ACID 500 MG TAB PO SCH (09:10)
[2021-12-26] MEDS: CALCIUM/VITAMIN D 500 MG TAB PO SCH (09:11)
[2021-12-26] MEDS: NYSTATIN 100,000 UNITS/GM TOPICAL PWD 15 GM TOP SCH ×2 (09:11→20:09)
[2021-12-26] MEDS: **hydrALAZINE HCL** 25 MG TAB PO PRN (10:30)
[2021-12-26] MEDS: BENZONATATE 100MG CAPSULE PO PRN (20:09)
[2021-12-27] VITALS: BP 162/84
[2021-12-27] MEDS: **hydrALAZINE HCL** 25 MG TAB PO PRN (00:23)
[2021-12-27] MEDS: IPRATROPIUM 0.5MG/ALBUTEROL 2.5MG INH SOL UD 3ML (DUONEB) NEB SCH ×3 (02:00→13:24)
[2021-12-27 04:31] LABS: HEMATOCRIT 33.2 % (36.0-47.0); MEAN CORPUSCULAR HEMOGLOBIN 30.5 pg (27.0-33.0); MEAN CORPUSCULAR HGB CONC 33.1 g/dl (32.0-36.5); PLATELET COUNT, AUTOMATED 176 10^3/uL (150-450); RED BLOOD COUNT 3.61 10^6/uL (4.00-5.40); WHITE BLOOD COUNT 9.5 10^3/uL (4.0-10.0)
[2021-12-27 04:48] LABS: CREATININE FOR GFR 1.44 MG/DL (0.55-1.30); GLOMERULAR FILTRATION RATE 36.8 (>32); POTASSIUM SERUM 3.8 MEQ/L (3.5-5.1)
[2021-12-27] MEDS: LEVOTHYROXINE 75MCG TABLET (0.075MG) PO SCH (05:55)
[2021-12-27] MEDS: HEPARIN SOD (PORCINE) 5000UNITS/ML 1ML VIAL/SYRINGE SQ SCH ×2 (05:56→13:26)
[2021-12-27] MEDS: HumaLOG INSULIN (NovoLOG) PER UNIT SC SCH ×2 (07:30→12:03)
[2021-12-27 08:00] VITALS: BP 183/80
[2021-12-27] MEDS ORDERED: methylPREDNISolone 40MG 1ML VIAL IV SCH (09:00)
[2021-12-27] MEDS: CALCIUM/VITAMIN D 500 MG TAB PO SCH (09:05)
[2021-12-27] MEDS: PRAVASTATIN 20 MG TAB PO SCH (09:05)
[2021-12-27] MEDS: LEVEMIR (INSULIN DETEMIR) 1 UNITS/0.01ML SC SCH (09:05)
[2021-12-27] MEDS: NYSTATIN 100,000 UNITS/GM TOPICAL PWD 15 GM TOP SCH (09:05)
[2021-12-27 09:06] VITALS: BP 172/82
[2021-12-27] MEDS: OMEGA-3 1000MG CAPSULE PO SCH (09:06)
[2021-12-27] MEDS: ASCORBIC ACID 500 MG TAB PO SCH (09:06)
[2021-12-27] MEDS: FERROUS SULFATE 325MG TAB PO SCH (09:06)
[2021-12-27] MEDS: VITAMIN D 1,000 INTERNATIONAL UNITS TABLET PO SCH (09:06)
[2021-12-27] MEDS: LACTOBACILLUS ACIDOPHILUS CAP (BACID) PO SCH (09:06)
[2021-12-27] MEDS: CARVedilol 12.5 MG TAB PO SCH (09:06)
[2021-12-27] MEDS ORDERED: GUAI20TA PO (10:12)
[2021-12-27] MEDS ORDERED: AMLO1TAB25 PO (10:12)
[2021-12-27] MEDS ORDERED: NYST10006 TOP (10:12)
[2021-12-27] MEDS ORDERED: BENZ-18 PO (10:12)
[2021-12-27] MEDS ORDERED: PRED20TA PO (10:12)
[2021-12-27] MEDS: BENZONATATE 100MG CAPSULE PO PRN (10:54)
[2021-12-28] MEDS ORDERED: predniSONE 20 MG TAB PO SCH (09:00)
== END 2021-12-27 15:31 | disposition home health service (06) | DRG 202 ==
LOC: M ED 23:01 → M ED INP 12-24 02:55 → ENRESERV 12-24 04:17 → M PCU 12-24 05:51
PROVIDERS: ADMIT Internal Medicine; ATTEND Internal Medicine
DX: J20.8 Acute bronchitis due to other specified organisms (principal); N17.9 Acute kidney failure, unspecified; D64.9 Anemia, unspecified; E11.22 Type 2 diabetes mellitus with diabetic chronic kidney disease; B97.81 Human metapneumovirus as the cause of diseases classified elsewhere; E03.9 Hypothyroidism, unspecified; E78.00 Pure hypercholesterolemia, unspecified; N18.9 Chronic kidney disease, unspecified; I12.9 Hypertensive chronic kidney disease with stage 1 through stage 4 chronic kidney disease, or unspecified chronic kidney disease; Z79.899 Other long term (current) drug therapy; Z88.0 Allergy status to penicillin; Z88.5 Allergy status to narcotic agent; Z88.6 Allergy status to analgesic agent; Z91.018 Allergy to other foods; G47.33 Obstructive sleep apnea (adult) (pediatric); Z96.652 Presence of left artificial knee joint; Z85.828 Personal history of other malignant neoplasm of skin; E66.9 Obesity, unspecified; Z68.36 Body mass index [BMI] 36.0-36.9, adult

== ENCOUNTER → 2021-12-23 | Outpatient (CLI) | payer OTHER ==
[~2021-12-23] MED LIST changes: +AMLO1TAB25 PO; +BENZ-18 PO; +DOXY-350 PO; +GUAI20TA PO; +MULT-90 PO; +NYST10006 TOP; +OMEG10002 PO; +PRED20TA PO; +VITA100093 PO; +VITA400C53 PO; +med rec comment
[2021-12-23 16:17] LABS: HEMATOCRIT 37.5 % (36.0-47.0); HEMOGLOBIN 12.7 g/dl (12.0-15.5); MEAN CORPUSCULAR HEMOGLOBIN 31.4 pg (27.0-33.0); MEAN CORPUSCULAR HGB CONC 33.9 g/dl (32.0-36.5); MEAN CORPUSCULAR VOLUME 92.8 fl (80.0-96.0); PLATELET COUNT, AUTOMATED 138 10^3/uL (150-450); RED BLOOD COUNT 4.04 10^6/uL (4.00-5.40); WHITE BLOOD COUNT 4.3 10^3/uL (4.0-10.0)
[2021-12-23 16:43] LABS: CK-MB VALUE MASS 7.6 NG/ML (<3.6)
[2021-12-23 16:48] LABS: ALBUMIN 2.8 GM/DL (3.2-5.2); BILIRUBIN,TOTAL 0.5 MG/DL (0.2-1.0); CALCIUM LEVEL 8.2 MG/DL (8.8-10.2); CREATININE FOR GFR 1.76 MG/DL (0.55-1.30); GLOMERULAR FILTRATION RATE 29.2 (>32); POTASSIUM SERUM 4.1 MEQ/L (3.5-5.1); TOTAL PROTEIN 6.4 GM/DL (6.4-8.2)
[2021-12-23 19:33] LABS: ATYPICAL LYMPH 3 % (0-5); LYMPHOCYTES 19 % (16-44); MONOCYTES 1 % (0-5); NEUTROPHILS 64 % (28-66)
[2021-12-23 19:34] LABS: ANISOCYTOSIS 1+; OVALOCYTES 1+; PLATELET ESTIMATE NORMAL (NORMAL); POIKILOCYTOSIS 1+
== END ==
LOC: M WUC 12:55
PROVIDERS: ATTEND Student in an Organized Health Care Education/Training Program
DX: R06.02 Shortness of breath (principal); R91.8 Other nonspecific abnormal finding of lung field

== ENCOUNTER 2022-11-26 10:29 | Inpatient (IN) | payer MEDICARE, OTHER ==
[~2022-11-26] VITALS: Ht 157.5 cm; Wt 90.8 kg
[~2022-11-26 10:29] MED LIST changes: +AMLO1TAB25 PO; +BENZ-18 PO; +DOXY-444 PO; +FISH10005 PO; -FISH7.5C PO; +GUAI20TA PO; +MULT-90 PO; +NYST10006 TOP; +OMEG10002 PO; +PRED20TA PO; +VITA100093 PO; +VITA400C53 PO; +med rec comment
[2022-11-26 11:09] LABS: BASO % 0.3 % (0.0-1.0); EOS # 0.1 10^3/uL (0.0-0.5); EOS % 0.8 % (0.0-3.0); HEMATOCRIT 37.7 % (36.0-47.0); HEMOGLOBIN 12.6 g/dl (12.0-15.5); LYMPH # 1.1 10^3/uL (1.5-5.0); LYMPH % 17.8 % (24.0-44.0); MEAN CORPUSCULAR HEMOGLOBIN 30.6 pg (27.0-33.0); MEAN CORPUSCULAR HGB CONC 33.4 g/dl (32.0-36.5); MEAN CORPUSCULAR VOLUME 91.5 fl (80.0-96.0); MONO # 0.3 10^3/uL (0.0-0.8); MONO % 5.1 % (2.0-8.0); NEUTROPHILS # 4.7 10^3/uL (1.5-8.5); NEUTROPHILS % 75.8 % (36.0-66.0); PLATELET COUNT, AUTOMATED 174 10^3/uL (150-450); RED BLOOD COUNT 4.12 10^6/uL (4.00-5.40); WHITE BLOOD COUNT 6.2 10^3/uL (4.0-10.0)
[2022-11-26 11:26] LABS: INR 1.01; PROTHROMBIN TIME 13.5 SECONDS (12.5-14.5)
[2022-11-26 11:27] LABS: PARTIAL THROMBOPLASTIN TIME 28.1 SECONDS (24.8-34.2)
[2022-11-26 11:38] LABS: ETHYL ALCOHOL (ETHANOL) < 0.003 % (0.000-0.010); LIPASE 35 U/L (12-53)
[2022-11-26 11:39] LABS: AMYLASE 36 U/L (30-118)
[2022-11-26 11:40] LABS: CPK CREATINE PHOSPHOKINASE 129 U/L (34-145)
[2022-11-26 11:41] VITALS: BP 162/68
[2022-11-26 11:43] LABS: ALBUMIN 2.9 G/DL (3.2-5.2); ALKALINE PHOSPHATASE 93 U/L (46-116); ALT/SGPT 14 U/L (7.0-40); AST/SGOT 19 U/L (<34); BILIRUBIN,DIRECT 0.2 MG/DL (<0.4); BILIRUBIN,TOTAL 0.8 MG/DL (0.3-1.2); CK-MB VALUE MASS 2.2 NG/ML (<3.6); TOTAL PROTEIN 5.8 G/DL (5.7-8.2)
[2022-11-26 11:44] LABS: RSV AMPLIFICATION NEGATIVE (NEGATIVE)
[2022-11-26 12:19] LABS: BLOOD UREA NITROGEN 20 MG/DL (9-23); CALCIUM LEVEL 8.7 MG/DL (8.3-10.6); CARBON DIOXIDE LEVEL 27 MMOL/L (20-31); CHLORIDE LEVEL 100 MMOL/L (98-107); CREATININE FOR GFR 1.66 MG/DL (0.55-1.30); GLOMERULAR FILTRATION RATE 31.2 (>32); GLUCOSE, FASTING 283 MG/DL (74-106); POTASSIUM SERUM 4.2 MMOL/L (3.5-5.1); SODIUM LEVEL 135 MMOL/L (136-145)
[2022-11-26 12:48] LABS: CK-MB VALUE MASS 2.6 NG/ML (<3.6)
[2022-11-26 12:51] LABS: MB/CK RELATIVE INDEX 1.67 (< OR =4)
[2022-11-26] MEDS ORDERED: ISOVUE-370 76% 100ML VIAL As Ordered ONE ×2 (13:04→13:25)
[2022-11-26] MEDS ORDERED: MED REC COMMENT (13:06)
[2022-11-26] MEDS ORDERED: AMLO1TAB25 PO (13:06)
[2022-11-26] MEDS ORDERED: VITA400C80 PO (13:06)
[2022-11-26] MEDS ORDERED: PRAV40TA2 PO (13:06)
[2022-11-26] MEDS ORDERED: FURO40TA2 PO (13:07)
[2022-11-26] MEDS ORDERED: HOME MED LIST COMPLETE! XX SCH (13:10)
[2022-11-26 13:38] LABS: AMPHETAMINES LEVEL URINE NEGATIVE (NEGATIVE); BARBITURATES URINE NEGATIVE (NEGATIVE); BENZODIAZEPINES URINE NEGATIVE (NEGATIVE); CANNABINOIDS URINE NEGATIVE (NEGATIVE); COCAINE METABOLITE URINE NEGATIVE (NEGATIVE); METHADONE URINE NEGATIVE (NEGATIVE); OPIATES URINE NEGATIVE (NEGATIVE); PHENCYCLIDINE URINE NEGATIVE (NEGATIVE)
[2022-11-26] MEDS ORDERED: GLUCAGON INJ 1MG VIAL SC PRN (15:50)
[2022-11-26] MEDS ORDERED: GLUCOSE 4GM CHEW TABLET PO PRN (15:50)
[2022-11-26] MEDS ORDERED: DEXTROSE 50% 50ML SYRINGE IV PRN (15:50)
[2022-11-26] MEDS ORDERED: ASPIRIN 300 MG SUPP PR ONE (15:50)
[2022-11-26] MEDS: INSULIN LISPRO (NovoLOG) PER UNIT SC SCH (21:00)
[2022-11-26] MEDS ORDERED: QUEtiapine FUMARATE 25 MG TAB PO SCH (21:00)
[2022-11-26] MEDS ORDERED: ALPRAZolam 0.25 MG TAB PO ONE (21:00)
[2022-11-26] MEDS: NS 1,000 ML IV SCH (21:56)
[2022-11-26 22:55] VITALS: BP 136/62
[2022-11-26] MEDS: HEPARIN SOD (PORCINE) 5000UNITS/ML 1ML VIAL/SYRINGE SQ SCH (23:44)
[2022-11-26] MEDS: PRAVASTATIN 20 MG TAB PO SCH (23:44)
[2022-11-27] VITALS (7 sets, daily range): BP systolic 107–187; BP diastolic 49–84
[2022-11-27] MEDS: LEVOTHYROXINE 75MCG TABLET (0.075MG) PO SCH (06:00)
[2022-11-27 07:03] LABS: BASO % 0.3 % (0.0-1.0); EOS # 0.1 10^3/uL (0.0-0.5); EOS % 1.8 % (0.0-3.0); HEMATOCRIT 35.3 % (36.0-47.0); HEMOGLOBIN 11.7 g/dl (12.0-15.5); LYMPH # 1.6 10^3/uL (1.5-5.0); LYMPH % 26.8 % (24.0-44.0); MEAN CORPUSCULAR HEMOGLOBIN 30.6 pg (27.0-33.0); MEAN CORPUSCULAR HGB CONC 33.1 g/dl (32.0-36.5); MEAN CORPUSCULAR VOLUME 92.4 fl (80.0-96.0); MONO # 0.4 10^3/uL (0.0-0.8); MONO % 5.9 % (2.0-8.0); NEUTROPHILS % 64.9 % (36.0-66.0); RED BLOOD COUNT 3.82 10^6/uL (4.00-5.40); WHITE BLOOD COUNT 6.1 10^3/uL (4.0-10.0)
[2022-11-27 07:08] LABS: CALCIUM LEVEL 8.2 MG/DL (8.3-10.6); CREATININE FOR GFR 1.62 MG/DL (0.55-1.30); GLOMERULAR FILTRATION RATE 32.1 (>32); POTASSIUM SERUM 3.8 MMOL/L (3.5-5.1)
[2022-11-27] MEDS: INSULIN LISPRO (NovoLOG) PER UNIT SC SCH ×4 (07:30→20:56)
[2022-11-27] MEDS ORDERED: ASPIRIN 81MG CHEW TABLET PEG SCH (09:00)
[2022-11-27] MEDS: amLODIPine 5 MG TAB PO SCH (09:00)
[2022-11-27] MEDS: PRAVASTATIN 20 MG TAB PO SCH ×2 (09:28→20:56)
[2022-11-27] MEDS: HEPARIN SOD (PORCINE) 5000UNITS/ML 1ML VIAL/SYRINGE SQ SCH ×2 (09:29→20:57)
[2022-11-27] MEDS: ASPIRIN 81MG CHEW TABLET PO SCH (09:29)
[2022-11-27] MEDS: NS 1,000 ML IV SCH (09:29)
[2022-11-27] MEDS ORDERED: FURO20TA2 PO (10:13)
[2022-11-27] MEDS ORDERED: QUEtiapine FUMARATE 25 MG TAB PO ONE (18:05)
[2022-11-27] MEDS ORDERED: ALPRAZolam 0.25 MG TAB PO ONE (20:40)
[2022-11-28] VITALS (7 sets, daily range): BP systolic 144–160; BP diastolic 66–80
[2022-11-28] MEDS: LEVOTHYROXINE 75MCG TABLET (0.075MG) PO SCH (05:39)
[2022-11-28 07:22] LABS: BASO % 0.3 % (0.0-1.0); EOS # 0.2 10^3/uL (0.0-0.5); EOS % 2.2 % (0.0-3.0); HEMATOCRIT 35.3 % (36.0-47.0); HEMOGLOBIN 11.7 g/dl (12.0-15.5); LYMPH # 2.9 10^3/uL (1.5-5.0); LYMPH % 41.5 % (24.0-44.0); MEAN CORPUSCULAR HGB CONC 33.1 g/dl (32.0-36.5); MEAN CORPUSCULAR VOLUME 93.4 fl (80.0-96.0); MONO # 0.5 10^3/uL (0.0-0.8); MONO % 7.6 % (2.0-8.0); NEUTROPHILS # 3.3 10^3/uL (1.5-8.5); NEUTROPHILS % 48.3 % (36.0-66.0); PLATELET COUNT, AUTOMATED 158 10^3/uL (150-450); RED BLOOD COUNT 3.78 10^6/uL (4.00-5.40); WHITE BLOOD COUNT 6.9 10^3/uL (4.0-10.0)
[2022-11-28] MEDS: INSULIN LISPRO (NovoLOG) PER UNIT SC SCH ×4 (07:30→20:12)
[2022-11-28 07:57] LABS: CALCIUM LEVEL 7.8 MG/DL (8.3-10.6); CHOLESTEROL RISK RATIO 5.52 (<5); CREATININE FOR GFR 1.78 MG/DL (0.55-1.30); GLOMERULAR FILTRATION RATE 28.8 (>32); LDL CHOLESTEROL 159.6 MG/DL (<100); POTASSIUM SERUM 3.5 MMOL/L (3.5-5.1)
[2022-11-28] MEDS: amLODIPine 5 MG TAB PO SCH (09:00)
[2022-11-28] MEDS: PRAVASTATIN 20 MG TAB PO SCH ×2 (09:33→20:11)
[2022-11-28] MEDS: HEPARIN SOD (PORCINE) 5000UNITS/ML 1ML VIAL/SYRINGE SQ SCH (09:33)
[2022-11-28] MEDS: ASPIRIN 81MG CHEW TABLET PO SCH (09:33)
[2022-11-28] MEDS ORDERED: NS 500 ML IV ONE (17:20)
[2022-11-28] MEDS: D5W 1,000 ML IV SCH (18:27)
[2022-11-28] MEDS: QUEtiapine FUMARATE 25 MG TAB PO SCH (20:10)
[2022-11-28] MEDS: APIXABAN 2.5 MG TAB (ELIQUIS) PO SCH (20:11)
[2022-11-29 04:15] VITALS: BP 162/75
[2022-11-29] MEDS: LEVOTHYROXINE 75MCG TABLET (0.075MG) PO SCH (05:16)
[2022-11-29 06:01] LABS: BASO % 0.5 % (0.0-1.0); EOS # 0.2 10^3/uL (0.0-0.5); EOS % 3.1 % (0.0-3.0); HEMATOCRIT 37.1 % (36.0-47.0); HEMOGLOBIN 12.1 g/dl (12.0-15.5); LYMPH # 2.4 10^3/uL (1.5-5.0); LYMPH % 43.8 % (24.0-44.0); MEAN CORPUSCULAR HEMOGLOBIN 30.5 pg (27.0-33.0); MEAN CORPUSCULAR HGB CONC 32.6 g/dl (32.0-36.5); MEAN CORPUSCULAR VOLUME 93.5 fl (80.0-96.0); MONO # 0.4 10^3/uL (0.0-0.8); NEUTROPHILS # 2.4 10^3/uL (1.5-8.5); NEUTROPHILS % 44.2 % (36.0-66.0); PLATELET COUNT, AUTOMATED 146 10^3/uL (150-450); RED BLOOD COUNT 3.97 10^6/uL (4.00-5.40); WHITE BLOOD COUNT 5.5 10^3/uL (4.0-10.0)
[2022-11-29 06:28] LABS: CALCIUM LEVEL 7.6 MG/DL (8.3-10.6); CREATININE FOR GFR 1.64 MG/DL (0.55-1.30); GLOMERULAR FILTRATION RATE 31.6 (>32); POTASSIUM SERUM 3.4 MMOL/L (3.5-5.1)
[2022-11-29] MEDS: D5W 1,000 ML IV SCH (06:56)
[2022-11-29 07:44] VITALS: BP 168/64
[2022-11-29] MEDS: PRAVASTATIN 20 MG TAB PO SCH ×2 (09:47→20:07)
[2022-11-29] MEDS: APIXABAN 2.5 MG TAB (ELIQUIS) PO SCH ×2 (09:47→20:08)
[2022-11-29] MEDS: INSULIN LISPRO (NovoLOG) PER UNIT SC SCH ×4 (09:48→20:07)
[2022-11-29] MEDS ORDERED: KCL 10MEQ IN D5/0.45NS 1000ML 1,000 ML IV SCH (10:00)
[2022-11-29] MEDS ORDERED: VARIBAR PUDDING 40% w/v 230ML TUBE As Ordered ONE (10:19)
[2022-11-29] MEDS ORDERED: BARIUM SULFATE 700 MG TABLET (E-Z-DISK) As Ordered ONE (10:19)
[2022-11-29] MEDS ORDERED: E-Z-PAQUE 96% w/w SUSP 176GM BTL As Ordered ONE (10:19)
[2022-11-29] MEDS ORDERED: VARIBAR NECTAR 40% w/v 240ML SUSP BTL As Ordered ONE (10:19)
[2022-11-29] MEDS ORDERED: ASPIRIN 81MG CHEW TABLET PO ONE (11:10)
[2022-11-29] MEDS: ISOSORBIDE DIN (ISORDIL) 10MG TAB PO SCH ×2 (13:03→18:01)
[2022-11-29 16:29] VITALS: BP 152/67
[2022-11-29] MEDS: PANTOPRAZOLE 40MG TAB (PROTONIX) PO SCH (18:01)
[2022-11-29 19:29] VITALS: BP 133/60
[2022-11-29] MEDS: QUEtiapine FUMARATE 25 MG TAB PO SCH (20:07)
[2022-11-30 01:48] VITALS: BP 166/58
[2022-11-30] MEDS ORDERED: SENNA 8.6 MG TAB (SENOKOT) PO PRN (03:30)
[2022-11-30 05:48] LABS: BASO % 0.5 % (0.0-1.0); EOS # 0.2 10^3/uL (0.0-0.5); EOS % 4.1 % (0.0-3.0); HEMATOCRIT 35.9 % (36.0-47.0); HEMOGLOBIN 11.4 g/dl (12.0-15.5); LYMPH # 2.3 10^3/uL (1.5-5.0); LYMPH % 41.1 % (24.0-44.0); MEAN CORPUSCULAR HEMOGLOBIN 30.4 pg (27.0-33.0); MEAN CORPUSCULAR HGB CONC 31.8 g/dl (32.0-36.5); MEAN CORPUSCULAR VOLUME 95.7 fl (80.0-96.0); MONO # 0.4 10^3/uL (0.0-0.8); MONO % 7.7 % (2.0-8.0); NEUTROPHILS # 2.6 10^3/uL (1.5-8.5); NEUTROPHILS % 46.4 % (36.0-66.0); PLATELET COUNT, AUTOMATED 147 10^3/uL (150-450); RED BLOOD COUNT 3.75 10^6/uL (4.00-5.40); WHITE BLOOD COUNT 5.6 10^3/uL (4.0-10.0)
[2022-11-30 06:15] LABS: CALCIUM LEVEL 7.8 MG/DL (8.3-10.6); CREATININE FOR GFR 1.62 MG/DL (0.55-1.30); GLOMERULAR FILTRATION RATE 32.1 (>32); POTASSIUM SERUM 3.7 MMOL/L (3.5-5.1)
[2022-11-30] MEDS: LEVOTHYROXINE 75MCG TABLET (0.075MG) PO SCH (06:24)
[2022-11-30] MEDS: ISOSORBIDE DIN (ISORDIL) 10MG TAB PO SCH (06:28)
[2022-11-30 06:53] VITALS: BP 142/52
[2022-11-30] MEDS: ASPIRIN 81MG CHEW TABLET PO SCH (08:46)
[2022-11-30] MEDS: APIXABAN 2.5 MG TAB (ELIQUIS) PO SCH ×2 (08:46→21:59)
[2022-11-30] MEDS: PRAVASTATIN 20 MG TAB PO SCH ×2 (08:46→22:00)
[2022-11-30] MEDS: PANTOPRAZOLE 40MG TAB (PROTONIX) PO SCH (08:46)
[2022-11-30] MEDS: INSULIN LISPRO (NovoLOG) PER UNIT SC SCH ×4 (08:47→21:59)
[2022-11-30] MEDS: ISOSORBIDE DIN. (ISORDIL) 20 MG TAB PO SCH ×2 (13:31→17:22)
[2022-11-30 14:00] VITALS: BP 156/62
[2022-11-30 22:00] VITALS: BP 131/71
[2022-11-30] MEDS: QUEtiapine FUMARATE 25 MG TAB PO SCH (22:00)
[2022-12-01 04:57] VITALS: BP 151/65
[2022-12-01 05:48] LABS: BASO % 0.5 % (0.0-1.0); EOS # 0.2 10^3/uL (0.0-0.5); EOS % 4.1 % (0.0-3.0); HEMATOCRIT 35.6 % (36.0-47.0); HEMOGLOBIN 11.3 g/dl (12.0-15.5); LYMPH # 2.2 10^3/uL (1.5-5.0); LYMPH % 39.1 % (24.0-44.0); MEAN CORPUSCULAR HGB CONC 31.7 g/dl (32.0-36.5); MEAN CORPUSCULAR VOLUME 94.4 fl (80.0-96.0); MONO # 0.5 10^3/uL (0.0-0.8); MONO % 8.6 % (2.0-8.0); NEUTROPHILS # 2.6 10^3/uL (1.5-8.5); NEUTROPHILS % 47.3 % (36.0-66.0); PLATELET COUNT, AUTOMATED 145 10^3/uL (150-450); RED BLOOD COUNT 3.77 10^6/uL (4.00-5.40); WHITE BLOOD COUNT 5.6 10^3/uL (4.0-10.0)
[2022-12-01] MEDS: ISOSORBIDE DIN. (ISORDIL) 20 MG TAB PO SCH ×2 (06:08)
[2022-12-01] MEDS: LEVOTHYROXINE 75MCG TABLET (0.075MG) PO SCH (06:08)
[2022-12-01 06:17] LABS: CALCIUM LEVEL 8.3 MG/DL (8.3-10.6); CREATININE FOR GFR 1.52 MG/DL (0.55-1.30); GLOMERULAR FILTRATION RATE 34.5 (>32); POTASSIUM SERUM 3.8 MMOL/L (3.5-5.1)
[2022-12-01] MEDS: PANTOPRAZOLE 40MG TAB (PROTONIX) PO SCH (08:24)
[2022-12-01] MEDS: INSULIN LISPRO (NovoLOG) PER UNIT SC SCH ×4 (08:30→21:18)
[2022-12-01] MEDS: ASPIRIN 81MG CHEW TABLET PO SCH (08:31)
[2022-12-01] MEDS: APIXABAN 2.5 MG TAB (ELIQUIS) PO SCH ×2 (08:31→21:16)
[2022-12-01] MEDS: PRAVASTATIN 20 MG TAB PO SCH ×2 (08:31→21:16)
[2022-12-01 14:00] VITALS: BP 156/80
[2022-12-01 20:00] VITALS: BP 161/77
[2022-12-01] MEDS ORDERED: ISOSORBIDE DIN. (ISORDIL) 30 MG TAB PO SCH (21:00)
[2022-12-01] MEDS: QUEtiapine FUMARATE 25 MG TAB PO SCH (21:16)
[2022-12-01] MEDS: ISOSORBIDE DIN. (ISORDIL) 30 MG TAB PO SCH (21:17)
[2022-12-02] MEDS: LEVOTHYROXINE 75MCG TABLET (0.075MG) PO SCH (05:59)
[2022-12-02 06:00] VITALS: BP 151/67
[2022-12-02 06:05] LABS: BASO % 0.6 % (0.0-1.0); EOS # 0.3 10^3/uL (0.0-0.5); EOS % 4.8 % (0.0-3.0); HEMOGLOBIN 10.9 g/dl (12.0-15.5); LYMPH # 2.1 10^3/uL (1.5-5.0); LYMPH % 40.5 % (24.0-44.0); MEAN CORPUSCULAR HEMOGLOBIN 30.2 pg (27.0-33.0); MEAN CORPUSCULAR HGB CONC 32.1 g/dl (32.0-36.5); MEAN CORPUSCULAR VOLUME 94.2 fl (80.0-96.0); MONO # 0.5 10^3/uL (0.0-0.8); MONO % 9.2 % (2.0-8.0); NEUTROPHILS # 2.3 10^3/uL (1.5-8.5); NEUTROPHILS % 44.3 % (36.0-66.0); PLATELET COUNT, AUTOMATED 154 10^3/uL (150-450); RED BLOOD COUNT 3.61 10^6/uL (4.00-5.40); WHITE BLOOD COUNT 5.2 10^3/uL (4.0-10.0)
[2022-12-02 06:30] LABS: CALCIUM LEVEL 8.3 MG/DL (8.3-10.6); CREATININE FOR GFR 1.48 MG/DL (0.55-1.30); GLOMERULAR FILTRATION RATE 35.6 (>32); POTASSIUM SERUM 4.1 MMOL/L (3.5-5.1)
[2022-12-02] MEDS: APIXABAN 2.5 MG TAB (ELIQUIS) PO SCH ×2 (08:18→20:30)
[2022-12-02] MEDS: INSULIN LISPRO (NovoLOG) PER UNIT SC SCH ×4 (08:18→20:31)
[2022-12-02] MEDS: PRAVASTATIN 20 MG TAB PO SCH ×2 (08:18→20:29)
[2022-12-02] MEDS: ASPIRIN 81MG CHEW TABLET PO SCH (08:19)
[2022-12-02] MEDS: ISOSORBIDE DIN. (ISORDIL) 30 MG TAB PO SCH ×3 (08:19→20:29)
[2022-12-02] MEDS: OMEPRAZOLE 20MG CAP PO SCH (08:19)
[2022-12-02 14:00] VITALS: BP 138/59
[2022-12-02 20:00] VITALS: BP 139/65
[2022-12-02] MEDS: QUEtiapine FUMARATE 25 MG TAB PO SCH (20:29)
[2022-12-03 06:00] VITALS: BP 157/64
[2022-12-03] MEDS: LEVOTHYROXINE 75MCG TABLET (0.075MG) PO SCH (06:03)
[2022-12-03 06:25] LABS: BASO % 0.6 % (0.0-1.0); EOS # 0.2 10^3/uL (0.0-0.5); EOS % 4.6 % (0.0-3.0); HEMATOCRIT 35.2 % (36.0-47.0); HEMOGLOBIN 11.3 g/dl (12.0-15.5); MEAN CORPUSCULAR HEMOGLOBIN 30.3 pg (27.0-33.0); MEAN CORPUSCULAR HGB CONC 32.1 g/dl (32.0-36.5); MEAN CORPUSCULAR VOLUME 94.4 fl (80.0-96.0); MONO # 0.4 10^3/uL (0.0-0.8); MONO % 7.6 % (2.0-8.0); NEUTROPHILS # 2.3 10^3/uL (1.5-8.5); PLATELET COUNT, AUTOMATED 147 10^3/uL (150-450); RED BLOOD COUNT 3.73 10^6/uL (4.00-5.40)
[2022-12-03 06:54] LABS: CALCIUM LEVEL 8.6 MG/DL (8.3-10.6); CREATININE FOR GFR 1.54 MG/DL (0.55-1.30); POTASSIUM SERUM 4.1 MMOL/L (3.5-5.1)
[2022-12-03] MEDS: INSULIN LISPRO (NovoLOG) PER UNIT SC SCH ×4 (08:32→22:20)
[2022-12-03] MEDS: OMEPRAZOLE 20MG CAP PO SCH (08:36)
[2022-12-03] MEDS: ASPIRIN 81MG CHEW TABLET PO SCH (08:36)
[2022-12-03] MEDS: PRAVASTATIN 20 MG TAB PO SCH ×2 (08:36→22:20)
[2022-12-03] MEDS: APIXABAN 2.5 MG TAB (ELIQUIS) PO SCH ×2 (08:36→22:19)
[2022-12-03] MEDS: ISOSORBIDE DIN. (ISORDIL) 30 MG TAB PO SCH ×3 (08:37→22:22)
[2022-12-03] MEDS: QUEtiapine FUMARATE 25 MG TAB PO SCH (22:20)
[2022-12-04 05:42] VITALS: BP 158/68
[2022-12-04] MEDS: LEVOTHYROXINE 75MCG TABLET (0.075MG) PO SCH (06:32)
[2022-12-04] MEDS ORDERED: zolPIDEM TARTRATE 5 MG TAB PO PRN (07:40)
[2022-12-04] MEDS ORDERED: ISOSORBIDE MON. (IMDUR) 60MG XR TAB PO ONE (08:00)
[2022-12-04] MEDS: INSULIN LISPRO (NovoLOG) PER UNIT SC SCH ×4 (08:25→20:19)
[2022-12-04] MEDS: ASPIRIN 81MG CHEW TABLET PO SCH (08:26)
[2022-12-04] MEDS: OMEGA-3 1000MG CAPSULE PO SCH ×2 (08:26→20:19)
[2022-12-04] MEDS: FERROUS SULFATE 325MG TAB PO SCH (08:26)
[2022-12-04] MEDS: LEVEMIR (INSULIN DETEMIR) 1 UNITS/0.01ML SC SCH (08:26)
[2022-12-04] MEDS: ASCORBIC ACID 500 MG TAB PO SCH (08:26)
[2022-12-04] MEDS: VITAMIN D 1,000 INTERNATIONAL UNITS TABLET PO SCH (08:26)
[2022-12-04] MEDS: APIXABAN 2.5 MG TAB (ELIQUIS) PO SCH ×2 (08:26→20:20)
[2022-12-04] MEDS: OMEPRAZOLE 20MG CAP PO SCH (08:26)
[2022-12-04] MEDS: PRAVASTATIN 20 MG TAB PO SCH ×2 (08:27→20:19)
[2022-12-04] MEDS: QUEtiapine FUMARATE 25 MG TAB PO SCH (20:19)
[2022-12-05 05:35] VITALS: BP 148/66
[2022-12-05] MEDS: LEVOTHYROXINE 75MCG TABLET (0.075MG) PO SCH (05:36)
[2022-12-05] MEDS: OMEGA-3 1000MG CAPSULE PO SCH ×2 (09:00→19:48)
[2022-12-05] MEDS: FERROUS SULFATE 325MG TAB PO SCH (09:09)
[2022-12-05] MEDS: VITAMIN D 1,000 INTERNATIONAL UNITS TABLET PO SCH (09:09)
[2022-12-05] MEDS: ASCORBIC ACID 500 MG TAB PO SCH (09:09)
[2022-12-05] MEDS: OMEPRAZOLE 20MG CAP PO SCH (09:10)
[2022-12-05] MEDS: ISOSORBIDE MON. (IMDUR) 60MG XR TAB PO SCH (09:16)
[2022-12-05] MEDS: PRAVASTATIN 20 MG TAB PO SCH ×2 (09:16→19:48)
[2022-12-05] MEDS: APIXABAN 2.5 MG TAB (ELIQUIS) PO SCH ×2 (09:16→19:49)
[2022-12-05] MEDS: ASPIRIN 81MG CHEW TABLET PO SCH (09:16)
[2022-12-05] MEDS: LEVEMIR (INSULIN DETEMIR) 1 UNITS/0.01ML SC SCH (09:17)
[2022-12-05] MEDS: INSULIN LISPRO (NovoLOG) PER UNIT SC SCH ×4 (09:17→20:03)
[2022-12-05] MEDS: QUEtiapine FUMARATE 25 MG TAB PO SCH (19:48)
[2022-12-06 05:47] VITALS: BP 136/88
[2022-12-06] MEDS: LEVOTHYROXINE 75MCG TABLET (0.075MG) PO SCH (05:54)
[2022-12-06] MEDS ORDERED: LEVEMIR (INSULIN DETEMIR) 1 UNITS/0.01ML SC SCH (09:00)
[2022-12-06 09:24] VITALS: BP 161/69
[2022-12-06] MEDS: INSULIN LISPRO (NovoLOG) PER UNIT SC SCH ×4 (09:27→21:00)
[2022-12-06] MEDS: ISOSORBIDE MON. (IMDUR) 60MG XR TAB PO SCH (09:28)
[2022-12-06] MEDS: PRAVASTATIN 20 MG TAB PO SCH ×2 (09:28→20:38)
[2022-12-06] MEDS: FERROUS SULFATE 325MG TAB PO SCH (09:28)
[2022-12-06] MEDS: OMEPRAZOLE 20MG CAP PO SCH (09:28)
[2022-12-06] MEDS: ASPIRIN 81MG CHEW TABLET PO SCH (09:28)
[2022-12-06] MEDS: ASCORBIC ACID 500 MG TAB PO SCH (09:28)
[2022-12-06] MEDS: OMEGA-3 1000MG CAPSULE PO SCH ×2 (09:29→20:38)
[2022-12-06] MEDS: APIXABAN 2.5 MG TAB (ELIQUIS) PO SCH ×2 (09:29→20:38)
[2022-12-06] MEDS: VITAMIN D 1,000 INTERNATIONAL UNITS TABLET PO SCH (09:29)
[2022-12-06] MEDS ORDERED: INSULIN LISPRO (NovoLOG) PER UNIT SC ONE ×2 (12:45→18:10)
[2022-12-06] MEDS: **hydrALAZINE** 10 MG TAB PO SCH ×2 (13:26→22:12)
[2022-12-06] MEDS ORDERED: HumuLIN R (REGULAR) INSULIN (NovoLIN R) **100U/ML** PER UNIT SC ONE (18:50)
[2022-12-06] MEDS ORDERED: HumuLIN R (REGULAR) INSULIN (NovoLIN R) **100U/ML** PER UNIT IV ONE (20:05)
[2022-12-06] MEDS: QUEtiapine FUMARATE 25 MG TAB PO SCH (20:38)
[2022-12-07] MEDS: ONDANSETRON 4MG 2ML VIAL IV PRN ×2 (02:58→08:35)
[2022-12-07] MEDS ORDERED: ACETAMINOPHEN 1000MG 100ML IV BAG IV ONE (03:00)
[2022-12-07] MEDS ORDERED: PANTOPRAZOLE 40MG VIAL IV ONE (03:00)
[2022-12-07 03:42] LABS: BASO % 0.2 % (0.0-1.0); EOS # 0.2 10^3/uL (0.0-0.5); EOS % 1.8 % (0.0-3.0); HEMATOCRIT 36.5 % (36.0-47.0); LYMPH # 0.9 10^3/uL (1.5-5.0); LYMPH % 8.8 % (24.0-44.0); MEAN CORPUSCULAR HEMOGLOBIN 30.6 pg (27.0-33.0); MEAN CORPUSCULAR HGB CONC 32.9 g/dl (32.0-36.5); MEAN CORPUSCULAR VOLUME 93.1 fl (80.0-96.0); MONO # 0.6 10^3/uL (0.0-0.8); MONO % 6.1 % (2.0-8.0); NEUTROPHILS # 8.1 10^3/uL (1.5-8.5); NEUTROPHILS % 82.8 % (36.0-66.0); PLATELET COUNT, AUTOMATED 157 10^3/uL (150-450); RED BLOOD COUNT 3.92 10^6/uL (4.00-5.40); WHITE BLOOD COUNT 9.8 10^3/uL (4.0-10.0)
[2022-12-07 04:07] LABS: ALBUMIN 2.6 G/DL (3.2-5.2); BILIRUBIN,TOTAL 0.3 MG/DL (0.3-1.2); CALCIUM LEVEL 8.1 MG/DL (8.3-10.6); CREATININE FOR GFR 1.64 MG/DL (0.55-1.30); GLOMERULAR FILTRATION RATE 31.6 (>32); POTASSIUM SERUM 5.2 MMOL/L (3.5-5.1); TOTAL PROTEIN 5.5 G/DL (5.7-8.2)
[2022-12-07] MEDS ORDERED: NS 1,000 ML IV SCH (04:15)
[2022-12-07 06:00] VITALS: BP 144/62
[2022-12-07] MEDS: **hydrALAZINE** 10 MG TAB PO SCH ×3 (06:29→20:34)
[2022-12-07] MEDS: LEVOTHYROXINE 75MCG TABLET (0.075MG) PO SCH (06:29)
[2022-12-07] MEDS ORDERED: BISACODYL 10MG SUPP PR ONE (08:10)
[2022-12-07] MEDS ORDERED: FLEET OIL RETENTION ENEMA PR PRN (08:10)
[2022-12-07] MEDS: INSULIN LISPRO (NovoLOG) PER UNIT SC SCH ×4 (08:34→20:53)
[2022-12-07 08:37] VITALS: BP 150/71
[2022-12-07] MEDS ORDERED: LEVEMIR (INSULIN DETEMIR) 1 UNITS/0.01ML SC SCH (09:00)
[2022-12-07] MEDS: ASCORBIC ACID 500 MG TAB PO SCH (09:50)
[2022-12-07] MEDS: MIRALAX *UNIT DOSE* 17GM PACKET PO SCH (09:50)
[2022-12-07] MEDS: DOCUSATE SODIUM 100MG CAPSULE PO SCH ×2 (09:50→20:34)
[2022-12-07] MEDS: FERROUS SULFATE 325MG TAB PO SCH (09:50)
[2022-12-07] MEDS: APIXABAN 2.5 MG TAB (ELIQUIS) PO SCH ×2 (09:50→20:34)
[2022-12-07] MEDS: VITAMIN D 1,000 INTERNATIONAL UNITS TABLET PO SCH (09:50)
[2022-12-07] MEDS: OMEGA-3 1000MG CAPSULE PO SCH ×2 (09:50→20:29)
[2022-12-07] MEDS: OMEPRAZOLE 20MG CAP PO SCH (09:51)
[2022-12-07] MEDS: ISOSORBIDE MON. (IMDUR) 60MG XR TAB PO SCH (09:51)
[2022-12-07] MEDS: PRAVASTATIN 20 MG TAB PO SCH ×2 (09:51→20:34)
[2022-12-07] MEDS: ASPIRIN 81MG CHEW TABLET PO SCH (09:51)
[2022-12-07] MEDS ORDERED: PATIROMER SORBITEX CALCIUM 8.4 GM POWDER PACKET (VELTASSA) PO ONE (11:00)
[2022-12-07 11:05] LABS: CALCIUM LEVEL 7.7 MG/DL (8.3-10.6); CREATININE FOR GFR 1.8 MG/DL (0.55-1.30); GLOMERULAR FILTRATION RATE 28.4 (>32); POTASSIUM SERUM 4.6 MMOL/L (3.5-5.1)
[2022-12-07] MEDS ORDERED: PROMETHAZINE 25 MG TAB PO ONE (11:40)
[2022-12-07] MEDS ORDERED: LEVEMIR (INSULIN DETEMIR) 1 UNITS/0.01ML SC ONE (11:40)
[2022-12-07 15:04] VITALS: BP 92/56
[2022-12-07] MEDS ORDERED: NS 500 ML IV ONE (15:20)
[2022-12-07 16:41] VITALS: BP 128/59
[2022-12-07] MEDS ORDERED: INSULIN LISPRO (NovoLOG) PER UNIT SC SCH (17:30)
[2022-12-07] MEDS: QUEtiapine FUMARATE 25 MG TAB PO SCH (20:34)
[2022-12-07 22:06] VITALS: BP 136/63
[2022-12-08 05:32] VITALS: BP 132/64
[2022-12-08] MEDS: **hydrALAZINE** 10 MG TAB PO SCH ×3 (06:00→20:42)
[2022-12-08] MEDS: LEVOTHYROXINE 75MCG TABLET (0.075MG) PO SCH (06:00)
[2022-12-08 06:31] LABS: CALCIUM LEVEL 8.1 MG/DL (8.3-10.6); CREATININE FOR GFR 1.74 MG/DL (0.55-1.30); GLOMERULAR FILTRATION RATE 29.5 (>32); MAGNESIUM LEVEL 1.5 MG/DL (1.8-2.4); PHOSPHORUS LEVEL 3.3 MG/DL (2.4-5.1); POTASSIUM SERUM 4.3 MMOL/L (3.5-5.1)
[2022-12-08] MEDS ORDERED: MAGNESIUM OXIDE 400MG TAB (MAG-OX) PO ONE (08:00)
[2022-12-08] MEDS: INSULIN LISPRO (NovoLOG) PER UNIT SC SCH ×7 (08:46→20:41)
[2022-12-08] MEDS: ASPIRIN 81MG CHEW TABLET PO SCH (08:47)
[2022-12-08] MEDS: FERROUS SULFATE 325MG TAB PO SCH (08:47)
[2022-12-08] MEDS: LEVEMIR (INSULIN DETEMIR) 1 UNITS/0.01ML SC SCH (08:47)
[2022-12-08] MEDS: ASCORBIC ACID 500 MG TAB PO SCH (08:48)
[2022-12-08] MEDS: DOCUSATE SODIUM 100MG CAPSULE PO SCH ×2 (08:48→21:00)
[2022-12-08] MEDS: OMEPRAZOLE 20MG CAP PO SCH (08:48)
[2022-12-08] MEDS: PRAVASTATIN 20 MG TAB PO SCH ×2 (08:48→20:42)
[2022-12-08] MEDS: APIXABAN 2.5 MG TAB (ELIQUIS) PO SCH ×2 (08:48→20:42)
[2022-12-08] MEDS: MIRALAX *UNIT DOSE* 17GM PACKET PO SCH (08:48)
[2022-12-08] MEDS: OMEGA-3 1000MG CAPSULE PO SCH ×2 (08:48→20:42)
[2022-12-08] MEDS: VITAMIN D 1,000 INTERNATIONAL UNITS TABLET PO SCH (08:49)
[2022-12-08] MEDS: ISOSORBIDE MON. (IMDUR) 60MG XR TAB PO SCH (08:51)
[2022-12-08] MEDS ORDERED: LEVEMIR (INSULIN DETEMIR) 1 UNITS/0.01ML SC SCH ×2 (09:00→21:00)
[2022-12-08 14:00] VITALS: BP 131/59
[2022-12-08 20:00] VITALS: BP 135/60
[2022-12-08] MEDS: QUEtiapine FUMARATE 25 MG TAB PO SCH (20:41)
[2022-12-09 06:00] VITALS: BP 136/60
[2022-12-09] MEDS: LEVOTHYROXINE 75MCG TABLET (0.075MG) PO SCH (06:07)
[2022-12-09] MEDS: **hydrALAZINE** 10 MG TAB PO SCH ×3 (06:07→23:25)
[2022-12-09 06:54] LABS: CALCIUM LEVEL 8.6 MG/DL (8.3-10.6); CREATININE FOR GFR 1.69 MG/DL (0.55-1.30); GLOMERULAR FILTRATION RATE 30.5 (>32); MAGNESIUM LEVEL 1.8 MG/DL (1.8-2.4); PHOSPHORUS LEVEL 3.8 MG/DL (2.4-5.1); POTASSIUM SERUM 4.1 MMOL/L (3.5-5.1)
[2022-12-09] MEDS ORDERED: INSULIN LISPRO (NovoLOG) PER UNIT SC SCH (07:30)
[2022-12-09] MEDS: INSULIN LISPRO (NovoLOG) PER UNIT SC SCH ×6 (07:30→21:00)
[2022-12-09] MEDS: LEVEMIR (INSULIN DETEMIR) 1 UNITS/0.01ML SC SCH (09:00)
[2022-12-09] MEDS: MIRALAX *UNIT DOSE* 17GM PACKET PO SCH (10:27)
[2022-12-09] MEDS: PRAVASTATIN 20 MG TAB PO SCH ×2 (10:28→20:30)
[2022-12-09] MEDS: ASPIRIN 81MG CHEW TABLET PO SCH (10:28)
[2022-12-09] MEDS: OMEGA-3 1000MG CAPSULE PO SCH ×2 (10:28→20:29)
[2022-12-09] MEDS: OMEPRAZOLE 20MG CAP PO SCH (10:29)
[2022-12-09] MEDS: VITAMIN D 1,000 INTERNATIONAL UNITS TABLET PO SCH (10:29)
[2022-12-09] MEDS: APIXABAN 2.5 MG TAB (ELIQUIS) PO SCH ×2 (10:29→20:30)
[2022-12-09] MEDS: ASCORBIC ACID 500 MG TAB PO SCH (10:29)
[2022-12-09] MEDS: ISOSORBIDE MON. (IMDUR) 60MG XR TAB PO SCH (10:30)
[2022-12-09] MEDS: DOCUSATE SODIUM 100MG CAPSULE PO SCH ×2 (10:30→20:29)
[2022-12-09] MEDS: FERROUS SULFATE 325MG TAB PO SCH (10:30)
[2022-12-09 20:00] VITALS: BP 125/60
[2022-12-09] MEDS: QUEtiapine FUMARATE 25 MG TAB PO SCH (20:30)
[2022-12-10 06:00] VITALS: BP 155/81
[2022-12-10] MEDS: **hydrALAZINE** 10 MG TAB PO SCH ×3 (06:14→23:04)
[2022-12-10] MEDS: LEVOTHYROXINE 75MCG TABLET (0.075MG) PO SCH (06:14)
[2022-12-10] MEDS: MIRALAX *UNIT DOSE* 17GM PACKET PO SCH (09:54)
[2022-12-10] MEDS: INSULIN LISPRO (NovoLOG) PER UNIT SC SCH ×7 (09:54→21:00)
[2022-12-10] MEDS: FERROUS SULFATE 325MG TAB PO SCH (09:55)
[2022-12-10] MEDS: LEVEMIR (INSULIN DETEMIR) 1 UNITS/0.01ML SC SCH (09:55)
[2022-12-10] MEDS: DOCUSATE SODIUM 100MG CAPSULE PO SCH ×2 (09:55→20:15)
[2022-12-10] MEDS: PRAVASTATIN 20 MG TAB PO SCH ×2 (09:56→20:16)
[2022-12-10] MEDS: VITAMIN D 1,000 INTERNATIONAL UNITS TABLET PO SCH (09:56)
[2022-12-10] MEDS: ASPIRIN 81MG CHEW TABLET PO SCH (09:56)
[2022-12-10] MEDS: ASCORBIC ACID 500 MG TAB PO SCH (09:56)
[2022-12-10] MEDS: APIXABAN 2.5 MG TAB (ELIQUIS) PO SCH ×2 (09:56→20:16)
[2022-12-10] MEDS: ISOSORBIDE MON. (IMDUR) 60MG XR TAB PO SCH (09:57)
[2022-12-10] MEDS: OMEPRAZOLE 20MG CAP PO SCH (09:57)
[2022-12-10] MEDS: OMEGA-3 1000MG CAPSULE PO SCH ×2 (09:59→20:15)
[2022-12-10] MEDS: QUEtiapine FUMARATE 25 MG TAB PO SCH (20:16)
[2022-12-11 05:01] VITALS: BP 151/74
[2022-12-11] MEDS: LEVOTHYROXINE 75MCG TABLET (0.075MG) PO SCH (05:48)
[2022-12-11] MEDS: **hydrALAZINE** 10 MG TAB PO SCH ×3 (05:49→21:00)
[2022-12-11] MEDS: INSULIN LISPRO (NovoLOG) PER UNIT SC SCH ×7 (07:30→20:59)
[2022-12-11] MEDS: MIRALAX *UNIT DOSE* 17GM PACKET PO SCH (09:02)
[2022-12-11] MEDS: ASPIRIN 81MG CHEW TABLET PO SCH (09:03)
[2022-12-11] MEDS: LEVEMIR (INSULIN DETEMIR) 1 UNITS/0.01ML SC SCH (09:03)
[2022-12-11] MEDS: ISOSORBIDE MON. (IMDUR) 60MG XR TAB PO SCH (09:03)
[2022-12-11] MEDS: ASCORBIC ACID 500 MG TAB PO SCH (09:04)
[2022-12-11] MEDS: OMEGA-3 1000MG CAPSULE PO SCH ×2 (09:04→20:58)
[2022-12-11] MEDS: PRAVASTATIN 20 MG TAB PO SCH ×2 (09:04→20:58)
[2022-12-11] MEDS: OMEPRAZOLE 20MG CAP PO SCH (09:04)
[2022-12-11] MEDS: VITAMIN D 1,000 INTERNATIONAL UNITS TABLET PO SCH (09:05)
[2022-12-11] MEDS: DOCUSATE SODIUM 100MG CAPSULE PO SCH ×2 (09:05→20:58)
[2022-12-11] MEDS: APIXABAN 2.5 MG TAB (ELIQUIS) PO SCH ×2 (09:05→20:58)
[2022-12-11] MEDS: FERROUS SULFATE 325MG TAB PO SCH (09:06)
[2022-12-11] MEDS: QUEtiapine FUMARATE 25 MG TAB PO SCH (20:58)
[2022-12-12] MEDS: **hydrALAZINE** 10 MG TAB PO SCH (05:56)
[2022-12-12] MEDS: LEVOTHYROXINE 75MCG TABLET (0.075MG) PO SCH (05:56)
[2022-12-12 06:00] VITALS: BP 159/70
[2022-12-12] MEDS ORDERED: SENN18TA PO (08:09)
[2022-12-12] MEDS ORDERED: MIRA1POW3 PO (08:09)
[2022-12-12] MEDS ORDERED: QUET1TAB17 PO (08:09)
[2022-12-12] MEDS ORDERED: OMEP-173 PO (08:09)
[2022-12-12] MEDS ORDERED: ELIQ2.5T PO (08:09)
[2022-12-12] MEDS ORDERED: ISOS1TAB36 PO (08:09)
[2022-12-12] MEDS ORDERED: HYDR25TA PO (08:09)
[2022-12-12] MEDS: INSULIN LISPRO (NovoLOG) PER UNIT SC SCH ×2 (08:47→08:48)
[2022-12-12 08:49] VITALS: BP 162/76
[2022-12-12] MEDS: LEVEMIR (INSULIN DETEMIR) 1 UNITS/0.01ML SC SCH (08:49)
[2022-12-12] MEDS: ISOSORBIDE MON. (IMDUR) 60MG XR TAB PO SCH (08:49)
[2022-12-12] MEDS: FERROUS SULFATE 325MG TAB PO SCH (08:50)
[2022-12-12] MEDS: APIXABAN 2.5 MG TAB (ELIQUIS) PO SCH (08:50)
[2022-12-12] MEDS: OMEPRAZOLE 20MG CAP PO SCH (08:50)
[2022-12-12] MEDS: VITAMIN D 1,000 INTERNATIONAL UNITS TABLET PO SCH (08:50)
[2022-12-12] MEDS: PRAVASTATIN 20 MG TAB PO SCH (08:50)
[2022-12-12] MEDS: MIRALAX *UNIT DOSE* 17GM PACKET PO SCH (08:50)
[2022-12-12] MEDS: ASPIRIN 81MG CHEW TABLET PO SCH (08:51)
[2022-12-12] MEDS: DOCUSATE SODIUM 100MG CAPSULE PO SCH (08:51)
[2022-12-12] MEDS: OMEGA-3 1000MG CAPSULE PO SCH (08:51)
[2022-12-12] MEDS: ASCORBIC ACID 500 MG TAB PO SCH (08:51)
[2022-12-12] MEDS ORDERED: **hydrALAZINE HCL** 25 MG TAB PO SCH (21:00)
== END 2022-12-12 11:01 | DRG 64 ==
LOC: EDBD 10:29 → M ED 10:29 → M ED INP 15:50 → ENRESERV 18:42 → M PCU 22:57 → M MSPAV 11-30 01:46
PROVIDERS: ADMIT Internal Medicine Nephrology; ATTEND General Practice
DX: I63.9 Cerebral infarction, unspecified (principal); G93.41 Metabolic encephalopathy; N18.4 Chronic kidney disease, stage 4 (severe); I50.32 Chronic diastolic (congestive) heart failure; I13.0 Hypertensive heart and chronic kidney disease with heart failure and stage 1 through stage 4 chronic kidney disease, or unspecified chronic kidney disease; E11.22 Type 2 diabetes mellitus with diabetic chronic kidney disease; I48.0 Paroxysmal atrial fibrillation; E11.649 Type 2 diabetes mellitus with hypoglycemia without coma; G47.33 Obstructive sleep apnea (adult) (pediatric); E03.9 Hypothyroidism, unspecified; E78.00 Pure hypercholesterolemia, unspecified; I35.0 Nonrheumatic aortic (valve) stenosis; I16.0 Hypertensive urgency; E66.01 Morbid (severe) obesity due to excess calories; I27.20 Pulmonary hypertension, unspecified; D50.9 Iron deficiency anemia, unspecified; Z96.643 Presence of artificial hip joint, bilateral; Z85.828 Personal history of other malignant neoplasm of skin; I45.10 Unspecified right bundle-branch block; M48.10 Ankylosing hyperostosis [Forestier], site unspecified; Z79.899 Other long term (current) drug therapy; Z88.0 Allergy status to penicillin; Z91.018 Allergy to other foods; Z88.5 Allergy status to narcotic agent; Z88.8 Allergy status to other drugs, medicaments and biological substances

== ENCOUNTER → 2023-01-04 | Outpatient (REF) ==
[~2023-01-04] MED LIST changes: +ELIQ2.5T PO; +HYDR25TA PO; +ISOS1TAB36 PO; +MED REC COMMENT; +MIRA1POW3 PO; +OMEP-173 PO; +PRAV40TA2 PO; +QUET1TAB17 PO; +SENN18TA PO; +VITA400C80 PO
== END ==
PROVIDERS: ATTEND Physician Assistant
DX: Z01.89 Encounter for other specified special examinations (principal); Z20.822 Contact with and (suspected) exposure to COVID-19

== ENCOUNTER → 2023-01-05 | Outpatient (REF) ==
[2023-01-05 09:50] LABS: BASO % 0.4 % (0.0-1.0); EOS # 0.1 10^3/uL (0.0-0.5); EOS % 1.1 % (0.0-3.0); HEMATOCRIT 37.5 % (36.0-47.0); HEMOGLOBIN 12.1 g/dl (12.0-15.5); LYMPH # 1.6 10^3/uL (1.5-5.0); LYMPH % 29.8 % (24.0-44.0); MEAN CORPUSCULAR HEMOGLOBIN 30.2 pg (27.0-33.0); MEAN CORPUSCULAR HEMOGLOBIN 30.5 pg (27.0-33.0); MEAN CORPUSCULAR HGB CONC 31.8 g/dl (32.0-36.5); MEAN CORPUSCULAR VOLUME 94.8 fl (80.0-96.0); MEAN CORPUSCULAR VOLUME 95.2 fl (80.0-96.0); MONO # 0.3 10^3/uL (0.0-0.8); MONO % 5.3 % (2.0-8.0); NEUTROPHILS # 3.3 10^3/uL (1.5-8.5); PLATELET COUNT, AUTOMATED 172 10^3/uL (150-450); PLATELET COUNT, AUTOMATED 178 10^3/uL (150-450); RED BLOOD COUNT 3.94 10^6/uL (4.00-5.40); RED BLOOD COUNT 4.01 10^6/uL (4.00-5.40); WHITE BLOOD COUNT 5.2 10^3/uL (4.0-10.0); WHITE BLOOD COUNT 5.3 10^3/uL (4.0-10.0)
[2023-01-05 10:15] LABS: CALCIUM LEVEL 8.6 MG/DL (8.3-10.6); CREATININE FOR GFR 1.68 MG/DL (0.55-1.30); GLOMERULAR FILTRATION RATE 30.8 (>32); POTASSIUM SERUM 3.7 MMOL/L (3.5-5.1)
== END ==
PROVIDERS: ATTEND Physician Assistant
DX: I10 Essential (primary) hypertension (principal)

== ENCOUNTER → 2023-01-12 | Outpatient (REF) ==
[2023-01-12 09:40] LABS: HEMATOCRIT 35.7 % (36.0-47.0); HEMOGLOBIN 11.5 g/dl (12.0-15.5); MEAN CORPUSCULAR HEMOGLOBIN 30.1 pg (27.0-33.0); MEAN CORPUSCULAR HGB CONC 32.2 g/dl (32.0-36.5); MEAN CORPUSCULAR VOLUME 93.5 fl (80.0-96.0); PLATELET COUNT, AUTOMATED 192 10^3/uL (150-450); RED BLOOD COUNT 3.82 10^6/uL (4.00-5.40); WHITE BLOOD COUNT 5.9 10^3/uL (4.0-10.0)
[2023-01-12 10:06] LABS: CALCIUM LEVEL 8.4 MG/DL (8.3-10.6); CREATININE FOR GFR 2.02 MG/DL (0.55-1.30); GLOMERULAR FILTRATION RATE 24.9 (>32); POTASSIUM SERUM 3.8 MMOL/L (3.5-5.1)
[2023-01-12 10:08] LABS: THYROID STIMULATING HORMONE 0.357 uIU/ML (0.55-4.78)
== END ==
PROVIDERS: ATTEND Physician Assistant
DX: I10 Essential (primary) hypertension (principal)

== ENCOUNTER → 2023-02-06 | Outpatient (CLI) | payer MEDICARE, OTHER ==
[~2023-02-06] MED LIST changes: +BARIUM SULFATE 700 MG TABLET (E-Z-DISK) As Ordered ONE; +E-Z-PAQUE 96% w/w SUSP 176GM BTL As Ordered ONE; +VARIBAR NECTAR 40% w/v 240ML SUSP BTL As Ordered ONE; +VARIBAR PUDDING 40% w/v 230ML TUBE As Ordered ONE
== END ==
LOC: M RAD 10:29
PROVIDERS: ATTEND Internal Medicine
DX: I69.321 Dysphasia following cerebral infarction (principal); R13.10 Dysphagia, unspecified

== ENCOUNTER → 2023-02-07 | Outpatient (REF) | payer MEDICARE, OTHER ==
[~2023-02-07] MED LIST changes: -BARIUM SULFATE 700 MG TABLET (E-Z-DISK) As Ordered ONE; -E-Z-PAQUE 96% w/w SUSP 176GM BTL As Ordered ONE; -VARIBAR NECTAR 40% w/v 240ML SUSP BTL As Ordered ONE; -VARIBAR PUDDING 40% w/v 230ML TUBE As Ordered ONE
== END ==
LOC: M LAB REF 16:08
PROVIDERS: ATTEND Family Medicine
DX: I69.359 Hemiplegia and hemiparesis following cerebral infarction affecting unspecified side (principal); I50.32 Chronic diastolic (congestive) heart failure

== ENCOUNTER → 2023-02-07 | Outpatient (REF) | PROVIDERS: ATTEND Physician Assistant | DX: E03.9 Hypothyroidism, unspecified (principal); Z53.8 Procedure and treatment not carried out for other reasons ==

== ENCOUNTER → 2023-10-03 | Outpatient (REF) | payer MEDICARE, OTHER ==
[~2023-10-03] MED LIST changes: +SENN-111 PO; -SENN18TA PO
[2023-10-03 15:49] LABS: VITAMIN B12 LEVEL 346 PG/ML (211-911)
== END ==
LOC: M LAB REF 12:35
PROVIDERS: ATTEND Family Medicine
DX: R41.3 Other amnesia (principal)

== ENCOUNTER 2023-12-04 19:38 | Inpatient (IN) | payer MEDICARE, OTHER ==
[~2023-12-04] VITALS: Ht 157.5 cm; Wt 74.1 kg
[~2023-12-04 19:38] MED LIST changes: -HYDR25TA PO; +HYDR25TA88 PO; -MIRA1POW3 PO; +MIRA33506 PO
[2023-12-04 19:58] LABS: VENOUS BASE EXCESS 3.6 (-2.0-2.0); VENOUS HCO3 27.6 MMOL/L (23.0-27.0); VENOUS PARTIAL PRESSURE CO2 39.7 mmHg (38.0-50.0); VENOUS PARTIAL PRESSURE O2 57.2 mmHg (30.0-50.0); VENOUS STANDARD HCO3 27.5 MMOL/L; VENOUS TOTAL CO2 28.8 MMOL/L (24.0-28.0)
[2023-12-04 20:18] LABS: HEMATOCRIT 37.8 % (36.0-47.0); HEMOGLOBIN 12.3 g/dl (12.0-15.5); MEAN CORPUSCULAR HEMOGLOBIN 29.8 pg (27.0-33.0); MEAN CORPUSCULAR HGB CONC 32.5 g/dl (32.0-36.5); MEAN CORPUSCULAR VOLUME 91.5 fl (80.0-96.0); RED BLOOD COUNT 4.13 10^6/uL (4.00-5.40); WHITE BLOOD COUNT 4.5 10^3/uL (4.0-10.0)
[2023-12-04 20:33] LABS: THYROID STIMULATING HORMONE 2.516 uIU/ML (0.55-4.78)
[2023-12-04 20:36] LABS: ALBUMIN 3.6 G/DL (3.2-5.2); ALKALINE PHOSPHATASE 79 U/L (46-116); ALT/SGPT 13 U/L (7.0-40); AST/SGOT 33 U/L (<34); BILIRUBIN,DIRECT 0.2 MG/DL (<0.4); BILIRUBIN,TOTAL 0.5 MG/DL (0.3-1.2); BLOOD UREA NITROGEN 30 MG/DL (9-23); CALCIUM LEVEL 9.1 MG/DL (8.3-10.6); CARBON DIOXIDE LEVEL 28 MMOL/L (20-31); CHLORIDE LEVEL 100 MMOL/L (98-107); CK-MB VALUE MASS < 1.0 NG/ML (<3.6); CPK CREATINE PHOSPHOKINASE 88 U/L (34-145); CREATININE FOR GFR 1.88 MG/DL (0.55-1.30); GLOMERULAR FILTRATION RATE 26.9 (>32); GLUCOSE, FASTING 99 MG/DL (74-106); MB/CK RELATIVE INDEX 1.13 (< OR =4); POTASSIUM SERUM 4.2 MMOL/L (3.5-5.1); SODIUM LEVEL 139 MMOL/L (136-145); TOTAL PROTEIN 6.9 G/DL (5.7-8.2)
[2023-12-04 20:49] LABS: ATYPICAL LYMPH 11 % (0-5); BASOPHILS 1 % (0-1); LYMPHOCYTES 21 % (16-44); MONOCYTES 2 % (0-5); NEUTROPHILS 65 % (28-66)
[2023-12-04 20:50] LABS: PLATELET ESTIMATE NORMAL (NORMAL)
[2023-12-04 21:35] LABS: AMPHETAMINES LEVEL URINE NEGATIVE (NEGATIVE); BARBITURATES URINE NEGATIVE (NEGATIVE); BENZODIAZEPINES URINE NEGATIVE (NEGATIVE); CANNABINOIDS URINE NEGATIVE (NEGATIVE); COCAINE METABOLITE URINE NEGATIVE (NEGATIVE); METHADONE URINE NEGATIVE (NEGATIVE); OPIATES URINE NEGATIVE (NEGATIVE); PHENCYCLIDINE URINE NEGATIVE (NEGATIVE)
[2023-12-04] MEDS: ASPIRIN 81MG CHEW TABLET PO ONE (23:03)
[2023-12-05] MEDS ORDERED: GLUCOSE 4GM CHEW TABLET PO PRN (00:20)
[2023-12-05] MEDS ORDERED: DEXTROSE 50% 50ML SYRINGE IV PRN (00:20)
[2023-12-05] MEDS ORDERED: GLUCAGON INJ 1MG VIAL SC PRN (00:20)
[2023-12-05] MEDS: NS 1,000 ML IV SCH (01:04)
[2023-12-05] MEDS ORDERED: HEPARIN SOD (PORCINE) 5000UNITS/ML 1ML VIAL/SYRINGE SQ SCH (06:00)
[2023-12-05] MEDS ORDERED: LEVOTHYROXINE 75MCG TABLET (0.075MG) PO SCH (06:00)
[2023-12-05] MEDS ORDERED: HYDR25TA88 PO (06:48)
[2023-12-05] MEDS ORDERED: FOLI400T13 PO (06:48)
[2023-12-05] MEDS ORDERED: RA M10TA PO (06:48)
[2023-12-05] MEDS ORDERED: ELIQ2.5T PO (06:48)
[2023-12-05] MEDS ORDERED: ISOS120T7 PO (06:48)
[2023-12-05] MEDS ORDERED: SYNT50TA PO (06:48)
[2023-12-05] MEDS ORDERED: OMEP40CA5 PO (06:48)
[2023-12-05] MEDS ORDERED: POTA10CA60 PO (06:48)
[2023-12-05] MEDS ORDERED: HOME MED LIST COMPLETE! XX SCH (06:50)
[2023-12-05] MEDS: INSULIN LISPRO (NovoLOG) PER UNIT SC SCH ×2 (07:30→21:00)
[2023-12-05] MEDS: ASPIRIN 81MG CHEW TABLET PO SCH (08:03)
[2023-12-05] MEDS: PANTOPRAZOLE 40MG TAB (PROTONIX) PO SCH (08:03)
[2023-12-05] MEDS: LEVEMIR (INSULIN DETEMIR) 1 UNITS/0.01ML SC SCH (09:00)
[2023-12-05] MEDS: LEVOTHYROXINE 50MCG TABLET (0.05MG) PO SCH (10:30)
[2023-12-05 12:56] LABS: CHOLESTEROL RISK RATIO 3.84 (<5); HDL CHOLESTEROL 41.9 MG/DL (>40); LDL CHOLESTEROL 97.7 MG/DL (<100); NON-HDL-C 119.1 MG/DL
[2023-12-05] MEDS: APIXABAN 2.5 MG TAB (ELIQUIS) PO SCH (14:43)
[2023-12-05 15:30] VITALS: BP 136/63; TEMP 98.3; O2SAT 97
[2023-12-05] MEDS ORDERED: RIVAROXABAN 20MG TAB (XARELTO) PO SCH (18:00)
[2023-12-05 20:00] VITALS: BP 116/59; TEMP 97.6; O2SAT 97
[2023-12-05] MEDS: ROSUVASTATIN 10 MG TAB (CRESTOR) PO SCH (21:20)
[2023-12-05 23:31] VITALS: BP 109/51; TEMP 97.8; O2SAT 97
[2023-12-06 03:48] VITALS: BP 110/45; TEMP 97.7; O2SAT 97
[2023-12-06 06:13] LABS: HEMATOCRIT 32.3 % (36.0-47.0); HEMOGLOBIN 10.7 g/dl (12.0-15.5); MEAN CORPUSCULAR HEMOGLOBIN 30.1 pg (27.0-33.0); MEAN CORPUSCULAR HGB CONC 33.1 g/dl (32.0-36.5); PLATELET COUNT, AUTOMATED 104 10^3/uL (150-450); RED BLOOD COUNT 3.55 10^6/uL (4.00-5.40); WHITE BLOOD COUNT 6.4 10^3/uL (4.0-10.0)
[2023-12-06 06:36] LABS: CALCIUM LEVEL 8.4 MG/DL (8.3-10.6); CREATININE FOR GFR 1.77 MG/DL (0.55-1.30); GLOMERULAR FILTRATION RATE 28.9 (>32); POTASSIUM SERUM 3.5 MMOL/L (3.5-5.1)
[2023-12-06 07:42] VITALS: BP 129/62; TEMP 97.1; O2SAT 96
[2023-12-06] MEDS: ASPIRIN 81MG ENTERIC TABLET PO SCH (09:56)
[2023-12-06] MEDS: FOLIC ACID 1MG TAB PO SCH (09:56)
[2023-12-06] MEDS: OMEPRAZOLE 20MG CAP PO SCH (09:57)
[2023-12-06] MEDS: POTASSIUM CHLORIDE 10MEQ SR TABLET PO SCH (09:57)
[2023-12-06] MEDS ORDERED: CRES10TA PO (10:01)
[2023-12-06] MEDS ORDERED: ASPI81TAEC PO (10:01)
[2023-12-06] MEDS: CEFDINIR 300 MG CAP (OMNICEF) PO SCH (11:42)
[2023-12-06 11:49] VITALS: BP 122/57; TEMP 97.6; O2SAT 100
== END 2023-12-06 14:15 | DRG 65 ==
LOC: M ED 19:38 → M ED INP 23:52 → M PCU 12-05 15:05
PROVIDERS: ADMIT Preventive Medicine Undersea and Hyperbaric Medicine; ATTEND Student in an Organized Health Care Education/Training Program
DX: I63.9 Cerebral infarction, unspecified (principal); I50.32 Chronic diastolic (congestive) heart failure; I13.0 Hypertensive heart and chronic kidney disease with heart failure and stage 1 through stage 4 chronic kidney disease, or unspecified chronic kidney disease; I48.20 Chronic atrial fibrillation, unspecified; N18.4 Chronic kidney disease, stage 4 (severe); I35.0 Nonrheumatic aortic (valve) stenosis; I77.1 Stricture of artery; I27.20 Pulmonary hypertension, unspecified; E11.22 Type 2 diabetes mellitus with diabetic chronic kidney disease; I48.0 Paroxysmal atrial fibrillation; Z79.01 Long term (current) use of anticoagulants; E03.9 Hypothyroidism, unspecified; Z88.0 Allergy status to penicillin; Z88.5 Allergy status to narcotic agent; Z88.8 Allergy status to other drugs, medicaments and biological substances; Z91.018 Allergy to other foods; Z79.4 Long term (current) use of insulin; Z79.899 Other long term (current) drug therapy; Z79.82 Long term (current) use of aspirin

== ENCOUNTER 2023-12-06 11:26 | Inpatient (IN) | payer MEDICARE ==
[~2023-12-06] VITALS: Ht 157.5 cm; Wt 73.5 kg
[~2023-12-06 11:26] MED LIST changes: +ASPI81TAEC PO; +CRES10TA PO; +FOLI400T13 PO; +ISOS120T7 PO; +OMEP40CA5 PO; +POTA10CA60 PO; +RA M10TA PO; +SYNT50TA PO
[2023-12-06] MEDS ORDERED: GLUCOSE 4GM CHEW TABLET PO PRN (12:40)
[2023-12-06] MEDS ORDERED: GLUCAGON INJ 1MG VIAL SC PRN (12:40)
[2023-12-06] MEDS ORDERED: DEXTROSE 50% 50ML SYRINGE IV PRN (12:40)
[2023-12-06] MEDS ORDERED: HOME MED LIST COMPLETE! XX SCH (14:25)
[2023-12-06 14:34] VITALS: BP 144/64; TEMP 97.7; O2SAT 98
[2023-12-06] MEDS: INSULIN LISPRO (NovoLOG) PER UNIT SC SCH ×2 (17:30→20:18)
[2023-12-06 19:50] VITALS: BP_SYST 137; BP_SYST 145; BP_DIAS 67; BP_DIAS 86; TEMP 97.3; TEMP 97.6; O2SAT 97; O2SAT 98
[2023-12-06] MEDS: APIXABAN 2.5 MG TAB (ELIQUIS) PO SCH (20:18)
[2023-12-06] MEDS: ROSUVASTATIN 10 MG TAB (CRESTOR) PO SCH (20:18)
[2023-12-07 05:44] VITALS: BP 137/62; TEMP 97.6; O2SAT 96
[2023-12-07] MEDS: LEVOTHYROXINE 50MCG TABLET (0.05MG) PO SCH (05:53)
[2023-12-07 08:41] LABS: HEMATOCRIT 34.6 % (36.0-47.0); HEMOGLOBIN 11.2 g/dl (12.0-15.5); MEAN CORPUSCULAR HEMOGLOBIN 29.9 pg (27.0-33.0); MEAN CORPUSCULAR HGB CONC 32.4 g/dl (32.0-36.5); MEAN CORPUSCULAR VOLUME 92.5 fl (80.0-96.0); RED BLOOD COUNT 3.74 10^6/uL (4.00-5.40); WHITE BLOOD COUNT 5.3 10^3/uL (4.0-10.0)
[2023-12-07 09:02] LABS: CALCIUM LEVEL 8.5 MG/DL (8.3-10.6); CREATININE FOR GFR 1.6 MG/DL (0.55-1.30); GLOMERULAR FILTRATION RATE 32.5 (>32); MAGNESIUM LEVEL 1.7 MG/DL (1.8-2.4); POTASSIUM SERUM 3.6 MMOL/L (3.5-5.1)
[2023-12-07 09:04] LABS: FOLATE 21.54 NG/ML (>5.4)
[2023-12-07] MEDS: POTASSIUM CHLORIDE 10MEQ SR TABLET PO SCH (09:12)
[2023-12-07] MEDS: OMEPRAZOLE 20MG CAP PO SCH (09:12)
[2023-12-07] MEDS: ASPIRIN 81MG ENTERIC TABLET PO SCH (09:12)
[2023-12-07] MEDS: LEVEMIR (INSULIN DETEMIR) 1 UNITS/0.01ML SC SCH (09:13)
[2023-12-07 09:20] LABS: PLATELET COUNT, AUTOMATED 96 10^3/uL (150-450)
[2023-12-07] MEDS ORDERED: ONDANSETRON 4MG 2ML VIAL IV ONE (12:05)
[2023-12-07 12:53] LABS: URIC ACID 8.4 MG/DL (3.1-7.8)
[2023-12-07] MEDS: CEFDINIR 300 MG CAP (OMNICEF) PO SCH (13:04)
[2023-12-07 14:00] VITALS: BP 130/62; TEMP 98; O2SAT 98
[2023-12-07 19:48] VITALS: BP 137/60; TEMP 98.3; O2SAT 97
[2023-12-07] MEDS: RAMELTEON 8 MG TAB (ROZEREM) PO PRN (20:43)
[2023-12-08 06:13] VITALS: BP 150/68; TEMP 96.7; O2SAT 96
[2023-12-08 08:13] LABS: HEMATOCRIT 36.6 % (36.0-47.0); HEMOGLOBIN 11.9 g/dl (12.0-15.5); MEAN CORPUSCULAR HEMOGLOBIN 29.9 pg (27.0-33.0); MEAN CORPUSCULAR HGB CONC 32.5 g/dl (32.0-36.5); PLATELET COUNT, AUTOMATED 115 10^3/uL (150-450); RED BLOOD COUNT 3.98 10^6/uL (4.00-5.40); WHITE BLOOD COUNT 4.8 10^3/uL (4.0-10.0)
[2023-12-08 08:37] LABS: CALCIUM LEVEL 8.8 MG/DL (8.3-10.6); CREATININE FOR GFR 1.54 MG/DL (0.55-1.30); GLOMERULAR FILTRATION RATE 33.9 (>32); POTASSIUM SERUM 4.1 MMOL/L (3.5-5.1)
[2023-12-08 14:07] VITALS: BP 118/56; TEMP 97.3; O2SAT 99
[2023-12-08 21:00] VITALS: BP 129/62; TEMP 97.8; O2SAT 100
[2023-12-09 06:10] VITALS: BP 148/65; TEMP 97.8; O2SAT 98
[2023-12-09 14:00] VITALS: BP 116/49; TEMP 97; O2SAT 97
[2023-12-09 20:01] VITALS: BP 117/58; TEMP 97.7; O2SAT 99
[2023-12-10 06:00] VITALS: BP 144/65; TEMP 98.1; O2SAT 96
[2023-12-10 09:19] LABS: HEMATOCRIT 31.3 % (36.0-47.0); HEMOGLOBIN 10.1 g/dl (12.0-15.5); MEAN CORPUSCULAR HEMOGLOBIN 30.1 pg (27.0-33.0); MEAN CORPUSCULAR HGB CONC 32.3 g/dl (32.0-36.5); MEAN CORPUSCULAR VOLUME 93.4 fl (80.0-96.0); PLATELET COUNT, AUTOMATED 121 10^3/uL (150-450); RED BLOOD COUNT 3.35 10^6/uL (4.00-5.40); WHITE BLOOD COUNT 3.1 10^3/uL (4.0-10.0)
[2023-12-10 09:38] LABS: CALCIUM LEVEL 8.4 MG/DL (8.3-10.6); CREATININE FOR GFR 1.77 MG/DL (0.55-1.30); GLOMERULAR FILTRATION RATE 28.9 (>32); POTASSIUM SERUM 4.4 MMOL/L (3.5-5.1)
[2023-12-10 14:00] VITALS: BP 119/57; TEMP 98.2; O2SAT 98
[2023-12-10 19:23] VITALS: BP 127/60; TEMP 97.4; O2SAT 99
[2023-12-11 05:15] VITALS: BP 169/73; TEMP 97.3; O2SAT 98
[2023-12-11] MEDS: MIRALAX *UNIT DOSE* 17GM PACKET PO PRN (11:58)
[2023-12-11 14:00] VITALS: BP 147/68; TEMP 97.4; O2SAT 100
[2023-12-11 19:41] VITALS: BP 138/63; TEMP 98.1; O2SAT 98
[2023-12-12 05:40] VITALS: BP 157/65; TEMP 98.1; O2SAT 97
[2023-12-12] MEDS ORDERED: BISACODYL 10MG SUPP PR PRN (13:50)
[2023-12-12 14:00] VITALS: BP 124/58; TEMP 97.8; O2SAT 100
[2023-12-12 20:00] VITALS: BP 122/54; TEMP 97.7; O2SAT 97
[2023-12-12] MEDS: SENNA 8.6 MG TAB (SENOKOT) PO SCH (20:16)
[2023-12-13 06:00] VITALS: BP 139/63; TEMP 97.4; O2SAT 95
[2023-12-13 10:24] VITALS: BP 127/58; TEMP 98.5; O2SAT 99
[2023-12-13 14:00] VITALS: BP 118/59; TEMP 97.9; O2SAT 98
[2023-12-13 19:48] VITALS: BP 141/65; TEMP 97.6; O2SAT 97
[2023-12-14 05:25] VITALS: BP 150/67; TEMP 97.3; O2SAT 97
[2023-12-14 06:29] LABS: HEMATOCRIT 30.2 % (36.0-47.0); HEMOGLOBIN 9.8 g/dl (12.0-15.5); MEAN CORPUSCULAR HEMOGLOBIN 29.9 pg (27.0-33.0); MEAN CORPUSCULAR HGB CONC 32.5 g/dl (32.0-36.5); MEAN CORPUSCULAR VOLUME 92.1 fl (80.0-96.0); PLATELET COUNT, AUTOMATED 130 10^3/uL (150-450); RED BLOOD COUNT 3.28 10^6/uL (4.00-5.40); WHITE BLOOD COUNT 3.9 10^3/uL (4.0-10.0)
[2023-12-14 07:00] LABS: CALCIUM LEVEL 8.3 MG/DL (8.3-10.6); CREATININE FOR GFR 1.55 MG/DL (0.55-1.30); GLOMERULAR FILTRATION RATE 33.7 (>32); MAGNESIUM LEVEL 1.7 MG/DL (1.8-2.4); POTASSIUM SERUM 4.8 MMOL/L (3.5-5.1)
[2023-12-14 14:00] VITALS: BP 154/66; TEMP 98.2; O2SAT 97
[2023-12-14 20:00] VITALS: BP 128/60; TEMP 98.2; O2SAT 97
[2023-12-14 21:14] LABS: BASO % 0.5 % (0.0-1.0); EOS # 0.2 10^3/uL (0.0-0.5); EOS % 3.8 % (0.0-3.0); HEMATOCRIT 28.9 % (36.0-47.0); HEMOGLOBIN 9.3 g/dl (12.0-15.5); LYMPH # 1.4 10^3/uL (1.5-5.0); MEAN CORPUSCULAR HEMOGLOBIN 29.7 pg (27.0-33.0); MEAN CORPUSCULAR HGB CONC 32.2 g/dl (32.0-36.5); MEAN CORPUSCULAR VOLUME 92.3 fl (80.0-96.0); MONO # 0.3 10^3/uL (0.0-0.8); MONO % 7.1 % (2.0-8.0); NEUTROPHILS # 2.1 10^3/uL (1.5-8.5); NEUTROPHILS % 53.6 % (36.0-66.0); PLATELET COUNT, AUTOMATED 111 10^3/uL (150-450); RED BLOOD COUNT 3.13 10^6/uL (4.00-5.40)
[2023-12-14 21:26] LABS: INR 1.25; PARTIAL THROMBOPLASTIN TIME 35.7 SECONDS (24.8-34.2); PROTHROMBIN TIME 15.3 SECONDS (12.5-14.5)
[2023-12-14 21:34] LABS: ALBUMIN 2.3 G/DL (3.2-5.2); BILIRUBIN,TOTAL 0.2 MG/DL (0.3-1.2); CALCIUM LEVEL 8.1 MG/DL (8.3-10.6); CREATININE FOR GFR 1.56 MG/DL (0.55-1.30); GLOMERULAR FILTRATION RATE 33.4 (>32); MAGNESIUM LEVEL 1.6 MG/DL (1.8-2.4); POTASSIUM SERUM 4.3 MMOL/L (3.5-5.1); TOTAL PROTEIN 5.1 G/DL (5.7-8.2)
[2023-12-15 06:00] VITALS: BP 145/63; TEMP 98; O2SAT 96
[2023-12-15 07:12] LABS: BASO % 0.7 % (0.0-1.0); EOS # 0.2 10^3/uL (0.0-0.5); EOS % 3.6 % (0.0-3.0); HEMATOCRIT 31.6 % (36.0-47.0); HEMOGLOBIN 10.3 g/dl (12.0-15.5); LYMPH # 1.6 10^3/uL (1.5-5.0); MEAN CORPUSCULAR HEMOGLOBIN 30.2 pg (27.0-33.0); MEAN CORPUSCULAR HGB CONC 32.6 g/dl (32.0-36.5); MEAN CORPUSCULAR VOLUME 92.7 fl (80.0-96.0); MONO # 0.3 10^3/uL (0.0-0.8); MONO % 6.3 % (2.0-8.0); NEUTROPHILS # 2.4 10^3/uL (1.5-8.5); NEUTROPHILS % 53.2 % (36.0-66.0); PLATELET COUNT, AUTOMATED 144 10^3/uL (150-450); RED BLOOD COUNT 3.41 10^6/uL (4.00-5.40); WHITE BLOOD COUNT 4.4 10^3/uL (4.0-10.0)
[2023-12-15 07:36] LABS: ALBUMIN 2.5 G/DL (3.2-5.2); BILIRUBIN,TOTAL 0.3 MG/DL (0.3-1.2); CALCIUM LEVEL 8.7 MG/DL (8.3-10.6); CREATININE FOR GFR 1.46 MG/DL (0.55-1.30); GLOMERULAR FILTRATION RATE 36.1 (>32); MAGNESIUM LEVEL 1.8 MG/DL (1.8-2.4); POTASSIUM SERUM 4.5 MMOL/L (3.5-5.1); TOTAL PROTEIN 5.7 G/DL (5.7-8.2)
[2023-12-15] MEDS: MAGNESIUM OXIDE 400MG TAB (MAG-OX) PO SCH (08:52)
[2023-12-15 14:00] VITALS: BP 140/69; TEMP 98; O2SAT 95
[2023-12-15 19:30] VITALS: BP 128/58; TEMP 98.2; O2SAT 96
[2023-12-16 06:15] VITALS: BP 141/63; TEMP 98.4; O2SAT 96
[2023-12-16 14:00] VITALS: BP 111/54; TEMP 98.2; O2SAT 96
[2023-12-16 19:42] VITALS: BP 129/55; TEMP 97.2; O2SAT 96
[2023-12-17 06:00] VITALS: BP 140/64; TEMP 97.4; O2SAT 97
[2023-12-17 10:58] LABS: HEMATOCRIT 29.6 % (36.0-47.0); HEMOGLOBIN 9.6 g/dl (12.0-15.5); MEAN CORPUSCULAR HEMOGLOBIN 30.1 pg (27.0-33.0); MEAN CORPUSCULAR HGB CONC 32.4 g/dl (32.0-36.5); MEAN CORPUSCULAR VOLUME 92.8 fl (80.0-96.0); PLATELET COUNT, AUTOMATED 133 10^3/uL (150-450); RED BLOOD COUNT 3.19 10^6/uL (4.00-5.40); WHITE BLOOD COUNT 4.1 10^3/uL (4.0-10.0)
[2023-12-17 11:09] LABS: CREATININE FOR GFR 1.48 MG/DL (0.55-1.30); GLOMERULAR FILTRATION RATE 35.5 (>32); MAGNESIUM LEVEL 1.7 MG/DL (1.8-2.4); POTASSIUM SERUM 4.6 MMOL/L (3.5-5.1)
[2023-12-17 14:00] VITALS: BP 135/62; TEMP 98.2; O2SAT 100
[2023-12-17 20:00] VITALS: BP 135/62; TEMP 98.2; O2SAT 100
[2023-12-17 20:06] VITALS: BP 137/63; TEMP 97.9; O2SAT 98
[2023-12-18 06:37] VITALS: BP 142/61; TEMP 98.1; O2SAT 97
[2023-12-18] MEDS ORDERED: MAGN400T2 PO (13:55)
[2023-12-18 14:00] VITALS: BP 127/59; TEMP 97.1; O2SAT 98
[2023-12-18 19:39] VITALS: BP 155/67; TEMP 97.6; O2SAT 98
[2023-12-19 06:08] VITALS: BP 147/66; TEMP 97.2; O2SAT 97
== END 2023-12-19 11:30 | disposition home health service (06) | DRG 65 ==
LOC: M PM&R 14:18
PROVIDERS: ADMIT Student in an Organized Health Care Education/Training Program; ATTEND Student in an Organized Health Care Education/Training Program
DX: I63.9 Cerebral infarction, unspecified (principal); I50.32 Chronic diastolic (congestive) heart failure; N18.4 Chronic kidney disease, stage 4 (severe); N39.0 Urinary tract infection, site not specified; I48.0 Paroxysmal atrial fibrillation; E11.22 Type 2 diabetes mellitus with diabetic chronic kidney disease; E78.5 Hyperlipidemia, unspecified; I35.0 Nonrheumatic aortic (valve) stenosis; Z91.148 Patient's other noncompliance with medication regimen for other reason; M19.90 Unspecified osteoarthritis, unspecified site; E66.01 Morbid (severe) obesity due to excess calories; Z68.37 Body mass index [BMI] 37.0-37.9, adult; Z79.01 Long term (current) use of anticoagulants; I27.20 Pulmonary hypertension, unspecified; I45.10 Unspecified right bundle-branch block; E03.9 Hypothyroidism, unspecified; E21.3 Hyperparathyroidism, unspecified; R32 Unspecified urinary incontinence; Z96.643 Presence of artificial hip joint, bilateral; Z85.828 Personal history of other malignant neoplasm of skin; Z85.42 Personal history of malignant neoplasm of other parts of uterus; Z98.41 Cataract extraction status, right eye; Z98.42 Cataract extraction status, left eye; I69.392 Facial weakness following cerebral infarction; I69.328 Other speech and language deficits following cerebral infarction; Z91.018 Allergy to other foods; Z88.0 Allergy status to penicillin; Z88.8 Allergy status to other drugs, medicaments and biological substances; Z79.82 Long term (current) use of aspirin; Z79.899 Other long term (current) drug therapy; E83.42 Hypomagnesemia; B96.1 Klebsiella pneumoniae [K. pneumoniae] as the cause of diseases classified elsewhere; I69.361 Other paralytic syndrome following cerebral infarction affecting right dominant side; I69.391 Dysphagia following cerebral infarction; I69.322 Dysarthria following cerebral infarction

== ENCOUNTER 2023-12-23 21:28 | Emergency (ER) | payer MEDICARE ==
[~2023-12-23] VITALS: Ht 160 cm; Wt 75.0 kg
[~2023-12-23 21:28] MED LIST changes: +MAGN400T2 PO
[2023-12-23 21:58] VITALS: TEMP 97.9
[2023-12-24] MEDS ORDERED: KETOROLAC 30 MG/ML 1ML VIAL IM ONE (00:20)
[2023-12-24 00:30] VITALS: BP 113/52
[2023-12-24] MEDS ORDERED: LIDO5DIS41 TD (00:44)
[2023-12-24] MEDS ORDERED: TRAM50TA2 PO (00:44)
[2023-12-24 00:58] VITALS: O2SAT 96
[2023-12-24] MEDS: LIDOCAINE 5% (LIDODERM) PATCH TD ONE (00:58)
[2023-12-24] MEDS: traMADol 50 MG TAB PO ONE (00:58)
[2023-12-24] MEDS ORDERED: LIDO5DIS41 TOP (08:08)
[2023-12-24] MEDS ORDERED: ROSU10TA6 PO (08:08)
[2023-12-24] MEDS ORDERED: ASPI81TA26 PO (08:08)
[2023-12-24] MEDS ORDERED: MAGN400T2 PO (08:08)
== END 2023-12-24 01:13 | disposition home or self-care (01) ==
LOC: M ED 21:28
DX: S32.008A Other fracture of unspecified lumbar vertebra, initial encounter for closed fracture (principal); Y92.019 Unspecified place in single-family (private) house as the place of occurrence of the external cause; Y93.9 Activity, unspecified; Y99.9 Unspecified external cause status; W19.XXXA Unspecified fall, initial encounter; K21.9 Gastro-esophageal reflux disease without esophagitis; Z88.0 Allergy status to penicillin; Z88.8 Allergy status to other drugs, medicaments and biological substances; Z91.018 Allergy to other foods; Z79.1 Long term (current) use of non-steroidal anti-inflammatories (NSAID); Z79.899 Other long term (current) drug therapy

== ENCOUNTER 2023-12-24 02:37 | Inpatient (IN) | payer MEDICARE ==
[~2023-12-24] VITALS: Ht 160 cm; Wt 73.1 kg
[~2023-12-24 02:37] MED LIST changes: +LIDO5DIS41 TD
[2023-12-24 03:07] LABS: VENOUS BASE EXCESS -1.6 (-2.0-2.0); VENOUS HCO3 23.6 MMOL/L (23.0-27.0); VENOUS PARTIAL PRESSURE CO2 41.9 mmHg (38.0-50.0); VENOUS PARTIAL PRESSURE O2 68.4 mmHg (30.0-50.0); VENOUS PH 7.369 UNITS (7.330-7.430); VENOUS STANDARD HCO3 23.1 MMOL/L; VENOUS TOTAL CO2 24.9 MMOL/L (24.0-28.0)
[2023-12-24 03:11] LABS: BASO % 0.5 % (0.0-1.0); EOS % 0.5 % (0.0-3.0); HEMATOCRIT 25.8 % (36.0-47.0); HEMOGLOBIN 8.6 g/dl (12.0-15.5); LYMPH # 0.8 10^3/uL (1.5-5.0); MEAN CORPUSCULAR HEMOGLOBIN 30.3 pg (27.0-33.0); MEAN CORPUSCULAR HGB CONC 33.3 g/dl (32.0-36.5); MEAN CORPUSCULAR VOLUME 90.8 fl (80.0-96.0); MONO # 0.3 10^3/uL (0.0-0.8); MONO % 5.5 % (2.0-8.0); NEUTROPHILS % 80.3 % (36.0-66.0); PLATELET COUNT, AUTOMATED 138 10^3/uL (150-450); RED BLOOD COUNT 2.84 10^6/uL (4.00-5.40); WHITE BLOOD COUNT 6.2 10^3/uL (4.0-10.0)
[2023-12-24] MEDS: NS 1,000 ML IV ONE (03:16)
[2023-12-24 03:23] LABS: INR 1.45; PROTHROMBIN TIME 17.2 SECONDS (12.5-14.5)
[2023-12-24 04:16] LABS: CALCIUM LEVEL 7.7 MG/DL (8.3-10.6); CK-MB VALUE MASS 1.9 NG/ML (<3.6); CREATININE FOR GFR 1.46 MG/DL (0.55-1.30); GLOMERULAR FILTRATION RATE 36.1 (>32); MAGNESIUM LEVEL 1.7 MG/DL (1.8-2.4); MB/CK RELATIVE INDEX 3.16 (< OR =4); POTASSIUM SERUM 4.8 MMOL/L (3.5-5.1)
[2023-12-24 04:18] LABS: FREE T4 0.92 NG/DL (0.89-1.76); THYROID STIMULATING HORMONE 3.847 uIU/ML (0.55-4.78)
[2023-12-24] MEDS ORDERED: GLUCAGON INJ 1MG VIAL SC PRN (06:30)
[2023-12-24] MEDS ORDERED: DEXTROSE 50% 50ML SYRINGE IV PRN (06:30)
[2023-12-24] MEDS ORDERED: GLUCOSE 4 GM CHEW PO PRN (06:30)
[2023-12-24] MEDS ORDERED: PERCOCET 5MG/325MG TAB PO PRN (07:25)
[2023-12-24] MEDS ORDERED: LIDO5DIS41 TOP (08:08)
[2023-12-24] MEDS ORDERED: ASPI81TA26 PO (08:08)
[2023-12-24] MEDS ORDERED: ROSU10TA6 PO (08:08)
[2023-12-24] MEDS ORDERED: MAGN400T2 PO (08:08)
[2023-12-24] MEDS ORDERED: HOME MED LIST COMPLETE! XX SCH (08:10)
[2023-12-24 08:23] VITALS: BP 125/60; TEMP 97.7; O2SAT 98
[2023-12-24] MEDS: INSULIN LISPRO (NovoLOG) PER UNIT SC SCH (08:52)
[2023-12-24] MEDS: SENOKOT S TAB PO SCH (08:52)
[2023-12-24] MEDS: LIDOCAINE 5% (LIDODERM) PATCH TD SCH (08:53)
[2023-12-24] MEDS: ACETAMINOPHEN 500 MG TAB PO SCH (08:53)
[2023-12-24] MEDS: oxyCODONE 5MG TAB PO ONE (10:45)
[2023-12-24] MEDS ORDERED: oxyCODONE 5MG TAB PO PRN (11:40)
[2023-12-24] MEDS: ASPIRIN 81MG ENTERIC TABLET PO SCH (11:56)
[2023-12-24] MEDS: MAGNESIUM OXIDE 400MG TAB (MAG-OX) PO SCH (11:56)
[2023-12-24] MEDS: LEVOTHYROXINE 50MCG TABLET (0.05MG) PO SCH (11:56)
[2023-12-24] MEDS: OMEPRAZOLE 20MG CAP PO SCH (11:56)
[2023-12-24] MEDS: APIXABAN 2.5 MG TAB (ELIQUIS) PO SCH (12:47)
[2023-12-24 12:55] LABS: APPEARANCE, URINE TURBID (CLEAR); BACTERIA, URINE AUTO 2+ (NEGATIVE); BILIRUBIN, URINE AUTO NEGATIVE (NEGATIVE); BLOOD, URINE BLOOD NEGATIVE (NEGATIVE); COLOR, URINE AMBER (YELLOW); GLUCOSE, URINE (UA) AUTO 2+ mg/dL (NEGATIVE); KETONE, URINE AUTO NEGATIVE (NEGATIVE); LEUKOCYTE ESTERASE, URINE AUTO 3+ (NEGATIVE); NITRITE, URINE AUTO NEGATIVE (NEGATIVE); PROTEIN, URINE AUTO 2+ mg/dL (NEGATIVE); RBC, URINE AUTO 80 /HPF (0-3); SPECIFIC GRAVITY URINE AUTO 1.016 (1.002-1.035); SQUAMOUS EPITHELIAL CELL UR AU 1 /HPF (0-6); UROBILINOGEN, URINE AUTO 0.2 mg/dL (0.0-2.0); WBC, URINE AUTO TNTC /HPF (0-3)
[2023-12-24 13:02] LABS: BASO % 0.5 % (0.0-1.0); EOS # 0.1 10^3/uL (0.0-0.5); EOS % 1.1 % (0.0-3.0); HEMATOCRIT 23.9 % (36.0-47.0); HEMOGLOBIN 7.5 g/dl (12.0-15.5); LYMPH # 1.3 10^3/uL (1.5-5.0); LYMPH % 24.4 % (24.0-44.0); MEAN CORPUSCULAR HEMOGLOBIN 30.1 pg (27.0-33.0); MEAN CORPUSCULAR HGB CONC 31.4 g/dl (32.0-36.5); MONO # 0.4 10^3/uL (0.0-0.8); MONO % 7.5 % (2.0-8.0); NEUTROPHILS # 3.6 10^3/uL (1.5-8.5); NEUTROPHILS % 66.3 % (36.0-66.0); PLATELET COUNT, AUTOMATED 123 10^3/uL (150-450); RED BLOOD COUNT 2.49 10^6/uL (4.00-5.40); WHITE BLOOD COUNT 5.5 10^3/uL (4.0-10.0)
[2023-12-24 13:21] LABS: CALCIUM LEVEL 7.5 MG/DL (8.3-10.6); CREATININE FOR GFR 1.41 MG/DL (0.55-1.30); GLOMERULAR FILTRATION RATE 37.6 (>32)
[2023-12-24 14:03] VITALS: BP 163/67; TEMP 97.9; O2SAT 99
[2023-12-24 15:20] LABS: HEMOGLOBIN A1c 5.8 % (4.0-6.0)
[2023-12-24 17:07] LABS: ABG BASE EXCESS -2.1 (-2.0-2.0); ABG HCO3 23.3 MMOL/L (22.0-26.0); ABG O2 SATURATION 87.4 % (95.0-99.0); ABG PARTIAL PRESSURE CO2 42.2 mmHg (35.0-45.0); ABG PARTIAL PRESSURE O2 54.1 mmHg (75.0-100.0); ABG STANDARD HCO3 22.6 MMOL/L. (22.0-26.0); ABG TOTAL CO2 24.5 MMOL/L (23.0-31.0); ABG pH (ARTERIAL) 7.359 UNITS (7.350-7.450)
[2023-12-24] MEDS: NALOXONE INJ 0.4MG/1ML VIAL IV STA ×2 (17:10→17:46)
[2023-12-24] MEDS ORDERED: PILL CUTTER 1 EACH XX PRN (18:25)
[2023-12-24 20:20] VITALS: BP 130/58; TEMP 98.1; O2SAT 95
[2023-12-24] MEDS: ROSUVASTATIN 10 MG TAB (CRESTOR) PO SCH (20:53)
[2023-12-24] MEDS: GABAPENTIN 100 MG CAP PO SCH (20:54)
[2023-12-24] MEDS ORDERED: INSULIN LISPRO (NovoLOG) PER UNIT SC SCH (21:00)
[2023-12-25] VITALS (8 sets, daily range): BP systolic 129–159; BP diastolic 50–65; TEMP 97.1–98.1; O2SAT 94–98
[2023-12-25 07:28] LABS: BASO % 0.7 % (0.0-1.0); EOS # 0.2 10^3/uL (0.0-0.5); EOS % 4.8 % (0.0-3.0); LYMPH # 1.8 10^3/uL (1.5-5.0); LYMPH % 41.9 % (24.0-44.0); MEAN CORPUSCULAR HEMOGLOBIN 29.5 pg (27.0-33.0); MEAN CORPUSCULAR VOLUME 92.3 fl (80.0-96.0); MONO # 0.3 10^3/uL (0.0-0.8); MONO % 7.1 % (2.0-8.0); NEUTROPHILS % 45.3 % (36.0-66.0); PLATELET COUNT, AUTOMATED 101 10^3/uL (150-450); RED BLOOD COUNT 2.71 10^6/uL (4.00-5.40); WHITE BLOOD COUNT 4.4 10^3/uL (4.0-10.0)
[2023-12-25 07:54] LABS: ALBUMIN 2.1 G/DL (3.2-5.2); BILIRUBIN,TOTAL 0.5 MG/DL (0.3-1.2); CALCIUM LEVEL 8.1 MG/DL (8.3-10.6); CREATININE FOR GFR 1.65 MG/DL (0.55-1.30); GLOMERULAR FILTRATION RATE 31.3 (>32); POTASSIUM SERUM 4.8 MMOL/L (3.5-5.1); TOTAL PROTEIN 4.6 G/DL (5.7-8.2)
[2023-12-25] MEDS: traMADol 50 MG TAB PO PRN (08:28)
[2023-12-25] MEDS: FUROSEMIDE 40MG/4ML VIAL IV ONE (14:03)
[2023-12-26 05:46] VITALS: BP 107/92; TEMP 97.7; O2SAT 95
[2023-12-26 06:11] LABS: BASO % 0.7 % (0.0-1.0); EOS # 0.2 10^3/uL (0.0-0.5); EOS % 5.2 % (0.0-3.0); HEMATOCRIT 25.2 % (36.0-47.0); HEMOGLOBIN 8.3 g/dl (12.0-15.5); LYMPH # 1.6 10^3/uL (1.5-5.0); LYMPH % 34.7 % (24.0-44.0); MEAN CORPUSCULAR HEMOGLOBIN 29.5 pg (27.0-33.0); MEAN CORPUSCULAR HGB CONC 32.9 g/dl (32.0-36.5); MEAN CORPUSCULAR VOLUME 89.7 fl (80.0-96.0); MONO # 0.4 10^3/uL (0.0-0.8); MONO % 8.5 % (2.0-8.0); NEUTROPHILS # 2.3 10^3/uL (1.5-8.5); NEUTROPHILS % 50.7 % (36.0-66.0); PLATELET COUNT, AUTOMATED 128 10^3/uL (150-450); RED BLOOD COUNT 2.81 10^6/uL (4.00-5.40); WHITE BLOOD COUNT 4.6 10^3/uL (4.0-10.0)
[2023-12-26 06:32] LABS: CALCIUM LEVEL 8.3 MG/DL (8.3-10.6); CREATININE FOR GFR 1.71 MG/DL (0.55-1.30); GLOMERULAR FILTRATION RATE 30.1 (>32); POTASSIUM SERUM 4.9 MMOL/L (3.5-5.1)
[2023-12-26] MEDS: LIDOCAINE 5% (LIDODERM) PATCH TD SCH (09:36)
[2023-12-26] MEDS: BISACODYL 10MG SUPP PR ONE (11:20)
[2023-12-26] MEDS: MIRALAX *UNIT DOSE* 17GM PACKET PO SCH (11:20)
[2023-12-26 14:00] VITALS: BP 100/56; TEMP 98.1; O2SAT 97
[2023-12-26 20:00] VITALS: BP 99/56; TEMP 97.9; O2SAT 94
[2023-12-27 06:00] VITALS: BP 133/56; TEMP 98.1; O2SAT 92
[2023-12-27 06:20] LABS: BASO % 0.5 % (0.0-1.0); EOS # 0.2 10^3/uL (0.0-0.5); EOS % 5.6 % (0.0-3.0); HEMATOCRIT 24.3 % (36.0-47.0); HEMOGLOBIN 8.1 g/dl (12.0-15.5); LYMPH # 1.6 10^3/uL (1.5-5.0); LYMPH % 36.7 % (24.0-44.0); MEAN CORPUSCULAR HEMOGLOBIN 30.5 pg (27.0-33.0); MEAN CORPUSCULAR HGB CONC 33.3 g/dl (32.0-36.5); MEAN CORPUSCULAR VOLUME 91.4 fl (80.0-96.0); MONO # 0.4 10^3/uL (0.0-0.8); MONO % 8.8 % (2.0-8.0); NEUTROPHILS # 2.1 10^3/uL (1.5-8.5); NEUTROPHILS % 48.2 % (36.0-66.0); PLATELET COUNT, AUTOMATED 138 10^3/uL (150-450); RED BLOOD COUNT 2.66 10^6/uL (4.00-5.40); WHITE BLOOD COUNT 4.3 10^3/uL (4.0-10.0)
[2023-12-27 06:46] LABS: CALCIUM LEVEL 8.3 MG/DL (8.3-10.6); CREATININE FOR GFR 1.48 MG/DL (0.55-1.30); GLOMERULAR FILTRATION RATE 35.5 (>32); POTASSIUM SERUM 4.7 MMOL/L (3.5-5.1)
[2023-12-27 18:00] VITALS: BP 127/50; TEMP 97.9; O2SAT 97
[2023-12-27 22:00] VITALS: BP 129/49; TEMP 97.9; O2SAT 93
[2023-12-28 06:00] VITALS: BP 102/57; TEMP 98.2; O2SAT 95
[2023-12-28] MEDS ORDERED: ACET-683 PO (08:22)
[2023-12-28] MEDS ORDERED: GABA-1171 PO (08:22)
[2023-12-28] MEDS ORDERED: LIDO5DIS41 TOP (08:22)
[2023-12-28] MEDS ORDERED: SENN-52 PO (08:22)
[2023-12-28] MEDS ORDERED: TRAM50TA2 PO (08:22)
== END 2023-12-28 12:00 | DRG 551 ==
LOC: M ED 02:37 → M ED INP 06:27 → ENRESERV 07:32 → M MSPAV 08:00
PROVIDERS: ADMIT Internal Medicine; ATTEND Internal Medicine Nephrology
PROC: 30233N1 Transfusion of Nonautologous Red Blood Cells into Peripheral Vein, Percutaneous Approach (ICD-10-PCS; principal; 2023-12-25)
DX: S32.019A Unspecified fracture of first lumbar vertebra, initial encounter for closed fracture (principal); I50.33 Acute on chronic diastolic (congestive) heart failure; N18.4 Chronic kidney disease, stage 4 (severe); I13.0 Hypertensive heart and chronic kidney disease with heart failure and stage 1 through stage 4 chronic kidney disease, or unspecified chronic kidney disease; I69.351 Hemiplegia and hemiparesis following cerebral infarction affecting right dominant side; D62 Acute posthemorrhagic anemia; N25.81 Secondary hyperparathyroidism of renal origin; J90 Pleural effusion, not elsewhere classified; S32.039A Unspecified fracture of third lumbar vertebra, initial encounter for closed fracture; S32.029A Unspecified fracture of second lumbar vertebra, initial encounter for closed fracture; R55 Syncope and collapse; E03.9 Hypothyroidism, unspecified; E11.22 Type 2 diabetes mellitus with diabetic chronic kidney disease; I48.0 Paroxysmal atrial fibrillation; S32.049A Unspecified fracture of fourth lumbar vertebra, initial encounter for closed fracture; M19.90 Unspecified osteoarthritis, unspecified site; I27.20 Pulmonary hypertension, unspecified; E66.01 Morbid (severe) obesity due to excess calories; Z68.37 Body mass index [BMI] 37.0-37.9, adult; E78.5 Hyperlipidemia, unspecified; Z98.41 Cataract extraction status, right eye; Z98.42 Cataract extraction status, left eye; Z96.643 Presence of artificial hip joint, bilateral; K59.00 Constipation, unspecified; I08.0 Rheumatic disorders of both mitral and aortic valves; Z85.828 Personal history of other malignant neoplasm of skin; R32 Unspecified urinary incontinence; W18.30XA Fall on same level, unspecified, initial encounter; Y92.009 Unspecified place in unspecified non-institutional (private) residence as the place of occurrence of the external cause; Z79.01 Long term (current) use of anticoagulants; I45.10 Unspecified right bundle-branch block; Z88.0 Allergy status to penicillin; Z91.018 Allergy to other foods; Z79.82 Long term (current) use of aspirin; Z79.899 Other long term (current) drug therapy; E11.65 Type 2 diabetes mellitus with hyperglycemia; S30.0XXA Contusion of lower back and pelvis, initial encounter

== ENCOUNTER → 2023-12-31 | Outpatient (REF) ==
[~2023-12-31] MED LIST changes: +ACET-683 PO; +ASPI81TA26 PO; +DOXY-440 PO; -DOXY-444 PO; +GABA-1171 PO; +LIDO5DIS41 TOP; -POTA10CA60 PO; +POTA10CA70 PO; +ROSU10TA61 PO; +SENN-52 PO
[2023-12-31 10:07] LABS: HEMATOCRIT 28.3 % (36.0-47.0); HEMOGLOBIN 8.8 g/dl (12.0-15.5); MEAN CORPUSCULAR HEMOGLOBIN 29.4 pg (27.0-33.0); MEAN CORPUSCULAR HGB CONC 31.1 g/dl (32.0-36.5); MEAN CORPUSCULAR VOLUME 94.6 fl (80.0-96.0); PLATELET COUNT, AUTOMATED 146 10^3/uL (150-450); RED BLOOD COUNT 2.99 10^6/uL (4.00-5.40); WHITE BLOOD COUNT 4.2 10^3/uL (4.0-10.0)
[2023-12-31 10:37] LABS: CALCIUM LEVEL 8.2 MG/DL (8.3-10.6); CREATININE FOR GFR 1.29 MG/DL (0.55-1.30); GLOMERULAR FILTRATION RATE 41.6 (>32); POTASSIUM SERUM 4.3 MMOL/L (3.5-5.1)
== END ==
PROVIDERS: ATTEND Internal Medicine
DX: I48.91 Unspecified atrial fibrillation (principal)

== ENCOUNTER → 2024-01-07 | Outpatient (REF) ==
[2024-01-04 10:02] LABS: HEMATOCRIT 29.9 % (36.0-47.0); HEMOGLOBIN 9.3 g/dl (12.0-15.5); MEAN CORPUSCULAR HEMOGLOBIN 30.2 pg (27.0-33.0); MEAN CORPUSCULAR HGB CONC 31.1 g/dl (32.0-36.5); MEAN CORPUSCULAR VOLUME 97.1 fl (80.0-96.0); PLATELET COUNT, AUTOMATED 152 10^3/uL (150-450); RED BLOOD COUNT 3.08 10^6/uL (4.00-5.40); WHITE BLOOD COUNT 5.6 10^3/uL (4.0-10.0)
[2024-01-04 10:23] LABS: CALCIUM LEVEL 8.2 MG/DL (8.3-10.6); CREATININE FOR GFR 1.38 MG/DL (0.55-1.30); GLOMERULAR FILTRATION RATE 38.5 (>32); POTASSIUM SERUM 4.8 MMOL/L (3.5-5.1)
== END ==
PROVIDERS: ATTEND Internal Medicine
DX: I48.91 Unspecified atrial fibrillation (principal)

== ENCOUNTER → 2024-01-14 | Outpatient (REF) ==
[2024-01-14 11:52] LABS: HEMOGLOBIN A1c 6.2 % (4.0-6.0)
== END ==
PROVIDERS: ATTEND Physician Assistant
DX: E11.9 Type 2 diabetes mellitus without complications (principal)

== ENCOUNTER 2024-03-18 20:06 | Inpatient (IN) | payer MEDICARE, OTHER ==
[~2024-03-18] VITALS: Ht 157.5 cm; Wt 72.0 kg
[2024-03-18] MEDS: NS 1,000 ML IV ONE ×2 (21:15→23:44)
[2024-03-18 21:20] LABS: VENOUS BASE EXCESS -4.8 (-2.0-2.0); VENOUS HCO3 21.6 MMOL/L (23.0-27.0); VENOUS O2 SATURATION 69.7 % (60.0-80.0); VENOUS PARTIAL PRESSURE CO2 45.3 mmHg (38.0-50.0); VENOUS PARTIAL PRESSURE O2 38.2 mmHg (30.0-50.0); VENOUS PH 7.297 UNITS (7.330-7.430)
[2024-03-18 21:23] LABS: BASO % 0.3 % (0.0-1.0); EOS # 0.1 10^3/uL (0.0-0.5); EOS % 1.6 % (0.0-3.0); HEMATOCRIT 33.7 % (36.0-47.0); HEMOGLOBIN 11.5 g/dl (12.0-15.5); LYMPH # 1.1 10^3/uL (1.5-5.0); LYMPH % 17.8 % (24.0-44.0); MEAN CORPUSCULAR HEMOGLOBIN 30.2 pg (27.0-33.0); MEAN CORPUSCULAR HGB CONC 34.1 g/dl (32.0-36.5); MEAN CORPUSCULAR VOLUME 88.5 fl (80.0-96.0); MONO # 0.4 10^3/uL (0.0-0.8); MONO % 6.2 % (2.0-8.0); NEUTROPHILS # 4.7 10^3/uL (1.5-8.5); NEUTROPHILS % 73.8 % (36.0-66.0); PLATELET COUNT, AUTOMATED 146 10^3/uL (150-450); RED BLOOD COUNT 3.81 10^6/uL (4.00-5.40); WHITE BLOOD COUNT 6.4 10^3/uL (4.0-10.0)
[2024-03-18 21:56] LABS: CK-MB VALUE MASS 3.8 NG/ML (<3.6)
[2024-03-18 22:08] LABS: HEMOGLOBIN A1c 11.6 % (4.0-6.0)
[2024-03-18 22:38] LABS: ALBUMIN 3.7 G/DL (3.2-5.2); BILIRUBIN,TOTAL 0.3 MG/DL (0.3-1.2); CREATININE FOR GFR 1.76 MG/DL (0.55-1.30); GLOMERULAR FILTRATION RATE 29.1 (>32); MAGNESIUM LEVEL 2.1 MG/DL (1.8-2.4); MB/CK RELATIVE INDEX 4.04 (< OR =4); PHOSPHORUS LEVEL 4.5 MG/DL (2.4-5.1); POTASSIUM SERUM 5.9 MMOL/L (3.5-5.1); TOTAL PROTEIN 7.3 G/DL (5.7-8.2)
[2024-03-18] MEDS ORDERED: INSULIN IV RATE CHANGE DOCUMENTATION ML/HR XX SCH (23:05)
[2024-03-18 23:24] LABS: ACETONE/KETONE 0.16 MMOL/L (0.02-0.27)
[2024-03-18 23:26] LABS: APPEARANCE, URINE CLEAR (CLEAR); BACTERIA, URINE AUTO 1+ (NEGATIVE); BILIRUBIN, URINE AUTO NEGATIVE (NEGATIVE); BLOOD, URINE BLOOD NEGATIVE (NEGATIVE); COLOR, URINE STRAW (YELLOW); GLUCOSE, URINE (UA) AUTO 3+ mg/dL (NEGATIVE); KETONE, URINE AUTO NEGATIVE (NEGATIVE); LEUKOCYTE ESTERASE, URINE AUTO 1+ (NEGATIVE); NITRITE, URINE AUTO NEGATIVE (NEGATIVE); PROTEIN, URINE AUTO NEGATIVE (NEGATIVE); RBC, URINE AUTO 2 /HPF (0-3); SPECIFIC GRAVITY URINE AUTO 1.012 (1.002-1.035); SQUAMOUS EPITHELIAL CELL UR AU 0 /HPF (0-6); UROBILINOGEN, URINE AUTO 0.2 mg/dL (0.0-2.0); WBC, URINE AUTO 5 /HPF (0-3)
[2024-03-18] MEDS: HumuLIN R (REGULAR) INSULIN (NovoLIN R) **100U/ML** PER UNIT IV ONE (23:51)
[2024-03-18] MEDS: INSULIN REGULAR IN 0.9 % NACL 100 UNIT in IV 1 EA IV SCH (23:56)
[2024-03-19] MEDS: cefTRIAXone SOD 1 GM in D5W MINI-BAG PLUS 50 ML IV ONE (02:52)
[2024-03-19] MEDS ORDERED: GLUCOSE 4 GM CHEW PO PRN ×2 (02:55→08:00)
[2024-03-19] MEDS ORDERED: GLUCAGON INJ 1MG VIAL SC PRN ×2 (02:55→08:00)
[2024-03-19] MEDS ORDERED: DEXTROSE 50% 50ML SYRINGE IV PRN ×2 (02:55→08:00)
[2024-03-19] MEDS ORDERED: ACET-897 PO (03:11)
[2024-03-19] MEDS ORDERED: SENN-23 PO (03:11)
[2024-03-19] MEDS ORDERED: ASPE4PAD2 TOP (03:11)
[2024-03-19] MEDS ORDERED: MILKSUS3 PO (03:11)
[2024-03-19] MEDS ORDERED: TRAM50TA2 PO ×2 (03:11)
[2024-03-19] MEDS ORDERED: SPIR-10 PO (03:11)
[2024-03-19] MEDS ORDERED: SENN8.6T28 PO (03:11)
[2024-03-19] MEDS ORDERED: GABA-1171 PO (03:11)
[2024-03-19] MEDS ORDERED: HOME MED LIST COMPLETE! XX SCH (03:15)
[2024-03-19] MEDS: LEVEMIR (INSULIN DETEMIR) 1 UNITS/0.01ML SC STA (03:52)
[2024-03-19 03:59] LABS: CALCIUM LEVEL 8.4 MG/DL (8.3-10.6); CREATININE FOR GFR 1.53 MG/DL (0.55-1.30); GLOMERULAR FILTRATION RATE 34.2 (>32); POTASSIUM SERUM 4.1 MMOL/L (3.5-5.1)
[2024-03-19] MEDS ORDERED: PILL CUTTER 1 EACH XX PRN (04:25)
[2024-03-19] MEDS: NS 1,000 ML IV SCH (05:01)
[2024-03-19 05:27] LABS: CALCIUM LEVEL 8.5 MG/DL (8.3-10.6); CREATININE FOR GFR 1.57 MG/DL (0.55-1.30); GLOMERULAR FILTRATION RATE 33.2 (>32); MAGNESIUM LEVEL 1.9 MG/DL (1.8-2.4); POTASSIUM SERUM 4.4 MMOL/L (3.5-5.1)
[2024-03-19] MEDS: INSULIN LISPRO (NovoLOG) PER UNIT SC SCH ×3 (06:00→20:46)
[2024-03-19] MEDS: LEVOTHYROXINE 50MCG TABLET (0.05MG) PO SCH (06:49)
[2024-03-19] MEDS: ASPIRIN 81MG ENTERIC TABLET PO SCH (09:00)
[2024-03-19] MEDS: GABAPENTIN 100 MG CAP PO SCH (09:00)
[2024-03-19] MEDS: APIXABAN 2.5 MG TAB (ELIQUIS) PO SCH (09:00)
[2024-03-19] MEDS: traMADol 50 MG TAB PO SCH (09:00)
[2024-03-19] MEDS: cefTRIAXone SOD 2 GM in D5W MINI-BAG PLUS 50 ML IV SCH (12:00)
[2024-03-19 15:25] VITALS: BP 135/57; TEMP 98.1; O2SAT 96
[2024-03-19 20:00] VITALS: BP 117/48; TEMP 98.2; O2SAT 96
[2024-03-19] MEDS: ROSUVASTATIN 10 MG TAB (CRESTOR) PO SCH (20:45)
[2024-03-19] MEDS: LEVEMIR (INSULIN DETEMIR) 1 UNITS/0.01ML SC SCH (20:54)
[2024-03-20 04:00] VITALS: BP 126/54; TEMP 98.1; O2SAT 93
[2024-03-20 07:56] LABS: BASO % 0.4 % (0.0-1.0); EOS # 0.2 10^3/uL (0.0-0.5); EOS % 2.7 % (0.0-3.0); HEMATOCRIT 29.5 % (36.0-47.0); HEMOGLOBIN 9.7 g/dl (12.0-15.5); LYMPH # 1.8 10^3/uL (1.5-5.0); LYMPH % 23.5 % (24.0-44.0); MEAN CORPUSCULAR HEMOGLOBIN 30.4 pg (27.0-33.0); MEAN CORPUSCULAR HGB CONC 32.9 g/dl (32.0-36.5); MEAN CORPUSCULAR VOLUME 92.5 fl (80.0-96.0); MONO # 0.5 10^3/uL (0.0-0.8); MONO % 6.4 % (2.0-8.0); NEUTROPHILS % 66.7 % (36.0-66.0); PLATELET COUNT, AUTOMATED 127 10^3/uL (150-450); RED BLOOD COUNT 3.19 10^6/uL (4.00-5.40); WHITE BLOOD COUNT 7.5 10^3/uL (4.0-10.0)
[2024-03-20 08:17] LABS: CALCIUM LEVEL 8.8 MG/DL (8.3-10.6); CREATININE FOR GFR 1.52 MG/DL (0.55-1.30); GLOMERULAR FILTRATION RATE 34.4 (>32); POTASSIUM SERUM 4.6 MMOL/L (3.5-5.1)
[2024-03-20 12:00] VITALS: BP 129/54; TEMP 98.1; O2SAT 95
[2024-03-20] MEDS ORDERED: GLUCAGON INJ 1MG VIAL SC PRN (16:50)
[2024-03-20] MEDS ORDERED: DEXTROSE 50% 50ML SYRINGE IV PRN (16:50)
[2024-03-20] MEDS ORDERED: GLUCOSE 4 GM CHEW PO PRN (16:50)
[2024-03-20] MEDS: INSULIN LISPRO (NovoLOG) PER UNIT SC SCH ×2 (17:30→21:10)
[2024-03-20] MEDS ORDERED: TRUL10IN SC (17:45)
[2024-03-20 20:11] VITALS: BP 128/66; TEMP 98.2; O2SAT 96
[2024-03-20] MEDS: LEVEMIR (INSULIN DETEMIR) 1 UNITS/0.01ML SC SCH (21:09)
[2024-03-21] MEDS ORDERED: INSULIN LISPRO (NovoLOG) PER UNIT As Ordered ONE (12:07)
[2024-03-21] MEDS ORDERED: cefTRIAXone SOD 2GM VIAL As Ordered ONE (12:08)
[2024-03-21] MEDS ORDERED: ERTAPENEM SODIUM 1 GM in NS MINI-BAG PLUS 50 ML IV SCH (13:00)
[2024-03-21 13:02] VITALS: BP 158/58; TEMP 98.4; O2SAT 93
[2024-03-21 13:29] LABS: BASO % 0.3 % (0.0-1.0); EOS # 0.2 10^3/uL (0.0-0.5); EOS % 2.8 % (0.0-3.0); HEMATOCRIT 30.8 % (36.0-47.0); LYMPH # 1.6 10^3/uL (1.5-5.0); LYMPH % 26.2 % (24.0-44.0); MEAN CORPUSCULAR HEMOGLOBIN 30.1 pg (27.0-33.0); MEAN CORPUSCULAR HGB CONC 32.5 g/dl (32.0-36.5); MEAN CORPUSCULAR VOLUME 92.8 fl (80.0-96.0); MONO # 0.5 10^3/uL (0.0-0.8); MONO % 7.5 % (2.0-8.0); NEUTROPHILS # 3.9 10^3/uL (1.5-8.5); PLATELET COUNT, AUTOMATED 125 10^3/uL (150-450); RED BLOOD COUNT 3.32 10^6/uL (4.00-5.40); WHITE BLOOD COUNT 6.2 10^3/uL (4.0-10.0)
[2024-03-21] MEDS: ACETAMINOPHEN TAB 650MG DOSE (2X325MG) PO PRN (13:39)
[2024-03-21 13:58] LABS: CALCIUM LEVEL 8.5 MG/DL (8.3-10.6); CREATININE FOR GFR 1.32 MG/DL (0.55-1.30); GLOMERULAR FILTRATION RATE 40.5 (>32); POTASSIUM SERUM 5.5 MMOL/L (3.5-5.1)
[2024-03-21] MEDS: CALCIUM GLUCONATE 1,000 MG in D5W MINI-BAG PLUS 100 ML IV ONE (15:54)
[2024-03-21] MEDS: PATIROMER SORBITEX CALCIUM 8.4 GM POWDER PACKET (VELTASSA) PO ONE (15:54)
[2024-03-21 16:13] LABS: CALCIUM LEVEL 8.7 MG/DL (8.3-10.6); CREATININE FOR GFR 1.37 MG/DL (0.55-1.30); GLOMERULAR FILTRATION RATE 38.8 (>32); POTASSIUM SERUM 5.2 MMOL/L (3.5-5.1)
[2024-03-21 16:36] LABS: BASO % 0.3 % (0.0-1.0); EOS # 0.2 10^3/uL (0.0-0.5); EOS % 2.9 % (0.0-3.0); HEMATOCRIT 28.7 % (36.0-47.0); HEMOGLOBIN 9.4 g/dl (12.0-15.5); LYMPH # 1.8 10^3/uL (1.5-5.0); LYMPH % 23.8 % (24.0-44.0); MEAN CORPUSCULAR HEMOGLOBIN 29.9 pg (27.0-33.0); MEAN CORPUSCULAR HGB CONC 32.8 g/dl (32.0-36.5); MEAN CORPUSCULAR VOLUME 91.4 fl (80.0-96.0); MONO # 0.7 10^3/uL (0.0-0.8); MONO % 8.8 % (2.0-8.0); NEUTROPHILS # 4.9 10^3/uL (1.5-8.5); NEUTROPHILS % 63.8 % (36.0-66.0); PLATELET COUNT, AUTOMATED 109 10^3/uL (150-450); RED BLOOD COUNT 3.14 10^6/uL (4.00-5.40); WHITE BLOOD COUNT 7.6 10^3/uL (4.0-10.0)
[2024-03-21 17:29] LABS: CALCIUM LEVEL 8.5 MG/DL (8.3-10.6); CREATININE FOR GFR 1.32 MG/DL (0.55-1.30); GLOMERULAR FILTRATION RATE 40.5 (>32); POTASSIUM SERUM 5.4 MMOL/L (3.5-5.1)
[2024-03-21] MEDS: ERTAPENEM SODIUM 500 MG in NS 50 ML IV SCH (18:03)
[2024-03-21] MEDS: INSULIN LISPRO (NovoLOG) PER UNIT SC SCH (18:04)
[2024-03-22 06:05] VITALS: BP 125/53; TEMP 98.4; O2SAT 94
[2024-03-22 07:01] LABS: HEMATOCRIT 30.5 % (36.0-47.0); MEAN CORPUSCULAR HEMOGLOBIN 29.7 pg (27.0-33.0); MEAN CORPUSCULAR HGB CONC 32.8 g/dl (32.0-36.5); MEAN CORPUSCULAR VOLUME 90.5 fl (80.0-96.0); PLATELET COUNT, AUTOMATED 131 10^3/uL (150-450); RED BLOOD COUNT 3.37 10^6/uL (4.00-5.40); WHITE BLOOD COUNT 5.3 10^3/uL (4.0-10.0)
[2024-03-22 07:22] LABS: CALCIUM LEVEL 8.7 MG/DL (8.3-10.6); CREATININE FOR GFR 1.31 MG/DL (0.55-1.30); GLOMERULAR FILTRATION RATE 40.9 (>32)
[2024-03-22] MEDS: PATIROMER SORBITEX CALCIUM 8.4 GM POWDER PACKET (VELTASSA) PO ONE ×2 (08:00→16:01)
[2024-03-22 12:30] VITALS: BP 144/71; TEMP 97.9; O2SAT 94
[2024-03-22 19:56] VITALS: BP 113/75; TEMP 98.4; O2SAT 97
[2024-03-23 03:55] VITALS: BP 121/49; TEMP 97.7; O2SAT 97
[2024-03-23 06:52] LABS: BASO % 0.6 % (0.0-1.0); EOS # 0.2 10^3/uL (0.0-0.5); EOS % 4.4 % (0.0-3.0); HEMATOCRIT 30.6 % (36.0-47.0); HEMOGLOBIN 9.9 g/dl (12.0-15.5); LYMPH # 1.7 10^3/uL (1.5-5.0); LYMPH % 33.3 % (24.0-44.0); MEAN CORPUSCULAR HEMOGLOBIN 30.3 pg (27.0-33.0); MEAN CORPUSCULAR HGB CONC 32.4 g/dl (32.0-36.5); MEAN CORPUSCULAR VOLUME 93.6 fl (80.0-96.0); MONO # 0.5 10^3/uL (0.0-0.8); NEUTROPHILS # 2.6 10^3/uL (1.5-8.5); NEUTROPHILS % 52.3 % (36.0-66.0); PLATELET COUNT, AUTOMATED 144 10^3/uL (150-450); RED BLOOD COUNT 3.27 10^6/uL (4.00-5.40)
[2024-03-23 07:15] LABS: CALCIUM LEVEL 8.9 MG/DL (8.3-10.6); CREATININE FOR GFR 1.3 MG/DL (0.55-1.30); GLOMERULAR FILTRATION RATE 41.2 (>32); POTASSIUM SERUM 4.7 MMOL/L (3.5-5.1)
[2024-03-23] MEDS: FUROSEMIDE 40 MG TAB PO SCH (11:09)
[2024-03-23 11:50] VITALS: BP 134/49; TEMP 98.1; O2SAT 96
[2024-03-23 19:40] VITALS: BP 108/47; TEMP 98.1; O2SAT 94
[2024-03-24 04:28] VITALS: BP 111/47; TEMP 97.9; O2SAT 94
[2024-03-24 11:58] VITALS: BP 111/45; TEMP 97.7; O2SAT 95
[2024-03-24 19:50] VITALS: BP 111/46; TEMP 97.7; O2SAT 96
[2024-03-25 04:32] VITALS: BP 113/47; TEMP 97.7; O2SAT 97
[2024-03-25 12:00] VITALS: BP 134/53; TEMP 97.7; O2SAT 96
[2024-03-25 20:27] VITALS: BP 130/90; TEMP 97.5; O2SAT 98
[2024-03-25] MEDS: LEVEMIR (INSULIN DETEMIR) 1 UNITS/0.01ML SC SCH (21:12)
[2024-03-26 04:20] VITALS: BP 126/59; TEMP 97.3; O2SAT 99
== END 2024-03-26 10:25 | disposition home health service (06) | DRG 638 ==
LOC: M ED 20:06 → M ED INP 03-19 02:52 → EEVIPCON 03-19 02:52 → M MS5PR 03-19 15:10
PROVIDERS: ADMIT Preventive Medicine Undersea and Hyperbaric Medicine; ATTEND Internal Medicine
DX: E11.65 Type 2 diabetes mellitus with hyperglycemia (principal); I48.20 Chronic atrial fibrillation, unspecified; N39.0 Urinary tract infection, site not specified; I69.351 Hemiplegia and hemiparesis following cerebral infarction affecting right dominant side; N18.4 Chronic kidney disease, stage 4 (severe); N17.9 Acute kidney failure, unspecified; E87.0 Hyperosmolality and hypernatremia; E87.5 Hyperkalemia; I12.9 Hypertensive chronic kidney disease with stage 1 through stage 4 chronic kidney disease, or unspecified chronic kidney disease; E11.22 Type 2 diabetes mellitus with diabetic chronic kidney disease; E03.9 Hypothyroidism, unspecified; E11.649 Type 2 diabetes mellitus with hypoglycemia without coma; E78.5 Hyperlipidemia, unspecified; E86.0 Dehydration; E11.51 Type 2 diabetes mellitus with diabetic peripheral angiopathy without gangrene; G89.29 Other chronic pain; I48.0 Paroxysmal atrial fibrillation; Z79.01 Long term (current) use of anticoagulants; Z88.0 Allergy status to penicillin; Z88.5 Allergy status to narcotic agent; Z91.018 Allergy to other foods; Z79.899 Other long term (current) drug therapy; Z79.82 Long term (current) use of aspirin